=== PATIENT | female | born 1945 | race Caucasian/White ===

== ENCOUNTER 2022-06-14 09:07 | Inpatient (IN) | payer MEDICARE, OTHER, SELFPAY ==
[2022-06-14] VITALS (18 sets, daily range): BP systolic 119–186; BP diastolic 85–107; PULSE 107–141; RESP 16–36; TEMP 36.8–37.2; O2SAT 88–100; BMI 19.1
--- NOTE | 2022-06-14 09:18 | W.ED.SOB ---
HPI - SOB/Dyspnea General: Chief Complaint: Shortness of Breath/Dyspnea Stated Complaint: covid and flu + since sunday, SOB Time Seen by Provider: 06/14/22 09:08 History of Present Illness: HPI Narrative: Ms. Parr is a 77-year-old lady with history of COPD/tobaccoism presenting to the emergency department due to respiratory distress. She reports onset of symptoms approximately 6 days ago with generalized malaise and increasing shortness of breath. This progressed over the weekend and became significant. She was diagnosed in [place] with COVID and flu. Sent home with steroids as well as a single injection of unknown medication. Despite this symptoms have persisted. Intensity is severe. Breathless at rest. No other specific changes in health, exacerbating, or alleviating factors identified. Onset (ago): day(s) Context: recent illness Timing: progressively worsening Severity: severe Exacerbating factors: exertion, movement and coughing Relieving factors: nothing Known history of: COPD Associated symptoms: Reports chest congestion and cough Review of Systems General: Reports: 10 or more systems reviewed and unremarkable except in HPI and below Resp: Reports: chest congestion PFSH ED PFSH: Medical History (Updated 06/14/22 @ 12:24 by Orlando Valle MD) COPD (chronic obstructive pulmonary disease) Sjogrens syndrome Surgical History (Updated 06/14/22 @ 12:14 by Orlando Valle MD) History of tubal ligation No significant past surgical history Social History (Updated 06/14/22 @ 12:14 by Orlando Valle MD) Smoking and tobacco status: current some day smoker Alcohol intake: never Physical Exam Const: COMMON NORMALS: alert GENERAL APPEARANCE: cooperative, well developed, in distress and ill appearing HENMT: COMMON NORMALS: normocephalic and atraumatic HEAD & SCALP: normocephalic and atraumatic THROAT: posterior oropharynx normal Eye: COMMON NORMALS: conjunctivae normal CONJUNCTIVA: Yes conjunctivae normal SCLERA: sclerae normal Neck/C-Spine: COMMON NORMALS: supple GENERAL: Yes trachea midline Resp: EFFORT & INSPECTION: Yes tachypneic and Yes respiratory distress AUSCULTATION: diminished lung sounds Cardio: COMMON NORMALS: regular rhythm RATE: tachycardic RHYTHM: regular rhythm GI: COMMON NORMALS: Soft to palpation PALPATION: Yes Soft to palpation and No Tenderness to palpation present (GI) Extremity: GENERAL: Yes normal exam except as noted and No edema Neuro: COMMON NORMALS: moves all extremities SENSORIUM/ORIENTATION: Yes alert and No Orientation impaired Psych: COMMON NORMALS: mental status grossly normal and Normal thought process present THOUGHT PROCESS: Normal thought process present Course Vital Signs: Vital signs: Vital Signs Temperature 98.1 F 06/21/22 13:07 Pulse Rate 103 H 06/21/22 13:07 Respiratory Rate 29 H 06/21/22 13:07 Blood Pressure 124/57 06/21/22 13:07 Pulse Oximetry 89 L 06/21/22 13:07 Oxygen Delivery Me thod 06/21/22 11:58 Oxygen Flow Rate 1 06/20/22 05:21 Fraction of Inspir ed Oxygen 30 06/19/22 12:00 MDM - SOB/Dyspnea Medical Decision Making 77-year-old lady presenting with respiratory distress in the context of COVID and flu. Exam as above. RT treatment ordered. EKG notable for sinus tachycardia with nonspecific ST segment abnormalities, no STEMI. Labs with no leukocytosis, normal hemoglobin. ABG is compensated on the supplemental oxygen. No significant electrolyte derangement. Mild transaminitis which is likely secondary to viral syndrome. BNP is somewhat elevated. Procalcitonin is also elevated.' Chest x-ray with mild chronic changes. Given severity of symptoms and no clear etiology identified on chest x-ray feel that advanced imaging is appropriate. CTA negative for PE however patient has multiple bilateral opacities concerning for pneumonia. There is also mild cardiomegaly and small pericardial effusion. Patient treated in ED with steroids, albuterol, fluids. Antibiotics also ordered by hospitalist upon results of procalcitonin. Most likely etiology of patient's symptoms is pneumonia including combination of viral and bacterial with acute hypoxic respiratory failure and respiratory distress. The results of ED evaluation were discussed with the patient including plan for admission due to requirement for level of care not available if discharged to prevent significant worsening/deterioration. Patient agreeable with plan. Discussed with hospitalist service who was agreeable to admit patient. Medical Records I reviewed the patient's medical records. Lab Data I reviewed the patient's lab results. 06/20/22 02:22 06/20/22 02:22 Labs/Radiology: Radiology Impressions Chest CTA 06/14/22 10:10 IMPRESSION: 1. No pulmonary embolism. 2. Extensive bilateral scattered pulmonary opacifications. Predominantly in a tree-in-bud airspace distribution with more focal opacification at the RIGHT apex. Favor viral pneumonitis. 3. Enlarged mediastinal and hilar lymph nodes, likely reactive. 4. Mild cardiomegaly with small circumferential pericardial effusion. Chest X-Ray 06/18/22 12:33 IMPRESSION: Findings as stated above are consistent with COPD. Laboratory Results WBC 9.5 10^3/uL (4.0-10.0) 06/14/22 09:50 RBC 4.50 10^6/uL (4.1-5.3) 06/14/22 09:50 Hgb 11.6 g/dL (11.5-15.3) 06/14/22 09:50 Hct 36.8 % (37.0-47.0) L 06/14/22 09:50 MCV 81.8 fl (81-99) 06/14/22 09:50 MCH 25.8 pg (28.0-34.0) L 06/14/22 09:50 MCHC 31.5 g/dL (30.0-36.0) 06/14/22 09:50 RDW 15.6 % (12.1-15.1) H 06/14/22 09:50 Plt Count 226 10^3/cmm (130-400) 06/14/22 09:50 MPV 12.3 fL (7.4-10.4) H 06/14/22 09:50 Lymph % (Auto) Not Reportable 06/14/22 09:50 [place] % (Auto) Not Reportable 06/14/22 09:50 Lymph # (Auto) Not Reportable 06/14/22 09:50 [place] # (Auto) Not Reportable 06/14/22 09:50 Total Counted 100 (0-100) 06/14/22 09:50 Atypical Lymphs % 10.0 % (0-5) H 06/14/22 09:50 Absolute Neutrophils 7.2 10^3/cmm (1.4-6.5) H 06/14/22 09:50 Segmented Neutrophils 61 % 06/14/22 09:50 Abs Segm Neuts (Man) 5.8 10/cmm (1.6-7.1) 06/14/22 09:50 Band Neutrophils 15.0 % 06/14/22 09:50 Abs Band Neuts (Man) 1.4 10^3/cmm (0.0-1.2) H 06/14/22 09:50 Absolute Lymphocytes 2.1 10^3/cmm (1.2-3.4) 06/14/22 09:50 Lymphocytes (Manual) 12 % 06/14/22 09:50 Monocytes (Manual) 2.0 % 06/14/22 09:50 Absolute Monocytes 0.2 10^3/cmm (0.1-0.6) 06/14/22 09:50 Eosinophils (Manual) 0 % 06/14/22 09:50 Absolute Eosinophils 0.0 10^3/cmm (0.0-0.7) 06/14/22 09:50 Basophils (Manual) 0.0 % 06/14/22 09:50 Absolute Basophils 0.0 10^3/cmm (0.0-0.2) 06/14/22 09:50 Pathologist Review Yes 06/14/22 09:50 Platelet Estimate Normal (Normal) 06/14/22 09:50 Polychromasia Trace 06/14/22 09:50 Hypochromasia Trace 06/14/22 09:50 Poikilocytosis Trace 06/14/22 09:50 Anisocytosis Trace 06/14/22 09:50 Microcytosis Trace 06/14/22 09:50 Macrocytosis Trace 06/14/22 09:50 Spherocytes Trace 06/14/22 09:50 Specimen Type Arterial 06/14/22 09:28 Sample Site Radial, left 06/14/22 09:28 ABG pH 7.43 (7.35-7.45) 06/14/22 09:28 ABG pCO2 42.7 mmHg (35-45) 06/14/22 09:28 ABG pO2 82.0 mmHg (80.0-100.0) 06/14/22 09:28 ABG HCO3 28.4 mmol/L (22-26) H 06/14/22 09:28 ABG Base Excess 3.6 mmol/L (-2.0-2.0) H 06/14/22 09:28 Jose Miguel Test Pos 06/14/22 09:28 Hematocrit 37.1 % (37-47) 06/14/22 09:28 Hgb O2 Saturation 95.6 % (95-100) 06/14/22 09:28 Carboxyhemoglobin 1.1 %THgb (0.4-20.1) 06/14/22 09:28 Methemoglobin 0.7 % (0.4-1.5) 06/14/22 09:28 Total Hemoglobin 12.1 g/dL (12-16) 06/14/22 09:28 O2 Delivery Device Nc 06/14/22 09:28 O2 Liters/Min 3.0 % 06/14/22 09:28 Furniture Painter ID [place] 06/14/22 09:28 Sodium 139 mmol/L (136-145) 06/14/22 09:50 Potassium 4.1 mmol/L (3.5-5.1) 06/14/22 09:50 Chloride 103 mmol/L (98-107) 06/14/22 09:50 Carbon Dioxide 25 mmol/L (22-29) 06/14/22 09:50 Anion Gap 15.1 (5-19) 06/14/22 09:50 BUN 14 mg/dL (8-23) 06/14/22 09:50 Creatinine 0.5 mg/dL (0.5-0.9) 06/14/22 09:50 GFR Calculation Not Reportable 06/14/22 09:50 Glucose 142 mg/dL (65-115) H 06/14/22 09:50 Calculated Osmolality 291 mOsm/kg (285-295) 06/14/22 09:50 Lactic Acid 1.8 mmol/L (0.5-2.2) 06/14/22 09:50 Calcium 8.7 mg/dL (8.5-10.5) 06/14/22 09:50 Total Bilirubin 0.4 mg/dL (0.15-1.2) 06/14/22 09:50 AST 48 U/L (0-32) H 06/14/22 09:50 ALT 70 U/L (0-33) H 06/14/22 09:50 Alkaline Phosphatase 240 U/L (35-105) H 06/14/22 09:50 Troponin T Baseline 18 ng/L (0-10) H 06/14/22 09:50 Troponin T 120 Minute 19.94 ng/L (0-10) H 06/14/22 11:55 Delta Troponin T 1.94 ABS# (0-10) 06/14/22 11:55 C-Reactive Protein 150.9 mg/L (0.0-4.9) H 06/14/22 09:50 Total Protein 6.6 g/dL (6.6-8.7) 06/14/22 09:50 Albumin 3.4 g/dL (3.5-5.2) L 06/14/22 09:50 Globulin 3.2 g/dL (1.3-4.6) 06/14/22 09:50 Procalcitonin 7.79 ng/mL (0-0.5) H 06/14/22 09:50 Hepatitis A IgM Ab Non-reactive (Nonreactive) 06/14/22 09:50 Hep Bs Antigen Non-reactive (Nonreactive) 06/14/22 09:50 Hep B Core IgM Ab Non-reactive (Nonreactive) 06/14/22 09:50 Hepatitis C Antibody Non-reactive (Nonreactive) 06/14/22 09:50 SARS-CoV-2 Ag (Rapid) negative (Negative) 06/14/22 10:53 Discharge Plan Discharge Patient Disposition: Admitted As Inpatient Admit Provider: Orlando Valle Clinical Impression: Acute exacerbation of chronic obstructive airways disease, Flu, COVID, Acute respiratory failure with hypoxia, Acute respiratory distress Condition: Stable Discharge Diet: Usual diet Discharge Activity: Resume usual activity Coding Level of Care Code ED Cartridge Loader for Eric Fwtrung Exam Comprehensive
--- NOTE | 2022-06-14 09:30 | XR_ITS ---
WS: [id number] Exam: XR chest 1V portable [id number] Date/Time of Exam: 06/14/2022 9:30 AM Reason For Exam: covid, flu, sob/tachycardia Comparison 08/10/2015. The lungs are hyperinflated. No acute infiltrates are seen. There are chronic interstitial changes. C ardiomediastinal silhouette is unremarkable for technique. No pleural effusions. Bony structures are intact. XR/XR chest 1V portable [id number] IMPRESSION: 1. Pulmonary hyperinflation which may indicate COPD. 2. Chronic interstitial changes and calcified granulomas in both lungs. No acut e process.
[2022-06-14 09:39] LABS: ABG PCO2 42.7 mmHg (35-45); ABG PH Result 7.43 (7.35-7.45); Arterial Blood Gas Hematocrit 37.1 % (37-47); Base Excess ABG 3.6 mmol/L (-2.0-2.0); Blood Gas Allen Test Pos; Blood Gas Operator Identificat WALCI; Blood Gas Sample Site Radial, left; Blood Gas Sample Type Arterial; Carboxyhemoglobin 1.1 %THgb (0.4-20.1); HCO3 ABG 28.4 mmol/L (22-26); HGB O2 Sat 95.6 % (95-100); Methemoglobin 0.7 % (0.4-1.5); Oxygen Device NC; Total Hemoglobin 12.1 g/dL (12-16)
--- NOTE | 2022-06-14 09:43 | ECG_ITS ---
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 Measurements Intervals [place] Rate: 108 P: 89 FL: 139 QRS: 64 QRSD: 94 T: 79 QT: 326 QTc: 437 Interpretive Statements SINUS TACHYCARDIA POSSIBLE LEFT ATRIAL ENLARGEMENT [-0.1mV P-WAVE IN V1/V2] POSSIBLE RIGHT VENTRICULAR CONDUCTION DELAY [RSR (QR) IN V1/V2] LEFT VENTRICULAR HYPERTROPHY AND ST-T CHANGE Compared to ECG 09/30/2015 18:40:33 Left ventricular hypertrophy now present ST (T wave) deviation now present T-wave abnormality no longer present Possible ischemia no longer present Electronically Signed On 06-14-2022 10:13:23 RESIDENT PHYSICIAN IN RADIOLOGY by Tonia Newsome M.D. [id number]
[2022-06-14] MEDS: albuterol 2.5 mg/3 mL Neb INHALATION ×2 (09:47)
[2022-06-14] MEDS: ipratropium-albuterol 3 mL Neb INHALATION ×4 (09:47→23:32)
[2022-06-14] MEDS: sodium chloride 0.9% 500 ML 999 ML IV (09:53)
[2022-06-14 10:03] LABS: Hematocrit 36.8 % (37.0-47.0); Hemoglobin 11.6 g/dL (11.5-15.3); Mean Corpuscular HGB Conc 31.5 g/dL (30.0-36.0); Mean Corpuscular Hemoglobin 25.8 pg (28.0-34.0); Mean Corpuscular Volume 81.8 fl (81-99); Mean Platelet Volume 12.3 fL (7.4-10.4); Platelet Count 226 10^3/cmm (130-400); Red Cell Distribution Width 15.6 % (12.1-15.1); White Blood Count 9.5 10^3/uL (4.0-10.0)
--- NOTE | 2022-06-14 10:10 | CT_ITS ---
WS: [id number] CT CHEST ANGIOGRAPHY WITH REFORMATS HISTORY: covid/flu, tachycardia, sob TECHNIQUE: Contiguous axial images are obtained through the chest during arterial injection of intrav enous contrast. Images are reconstructed to evaluate the pulmonary arteries. MIP imaging also reviewe d. All CT scans at [facility] use at least one of these dose optimization techniques: automat ed exposure control; mA and/or kV adjustment per patient size (includes targeted exams where dose is matched to clinical indication); or iterative reconstruction. CONTRAST: Omnipaque 350; 64 mL IV. DLP: 169.72 mGy.cm COMPARISON: 09/29/2015 Very good opacification of the pulmonary arteries. No filling defects or pulmonary emboli identified. Normal size pulmonary artery. Mild atherosclerosis thoracic aorta. No aneurysm. No dissection is thalia dent. Hyperexpanded lungs. There are numerous bilateral scattered pulmonary opacifications. Majority of the opacifications are tree-in-bud distribution. More focal irregular opacification at the RIGHT apex. Mildly enlarged heart with a small pericardial effusion measuring up to 10 mm. Mediastinal and hilar enlarged lymph nodes, probably reactive adenopathy. Inferior RIGHT paratracheal lymph node measures 11 mm. Bilateral hilar lymph nodes measuring up to 16 mm. Small hiatal hernia. Suprarenal aorta with mild atherosclerotic changes. CT/CT angio chest PE protcl [id number] IMPRESSION: 1. No pulmonary embolism. 2. Extensive bilateral scattered pulmonary opacifications. Predominantly in a tree-in-bud airspace distribution with more focal opacification at the RIGHT ap ex. Favor viral pneumonitis. 3. Enlarged mediastinal and hilar lymph nodes, likely reactive. 4. Mild cardiomegaly with small circumferential pericardial effusion.
[2022-06-14 10:25] LABS: Lactic Sepsis W/Reflex 1.8 mmol/L (0.5-2.2)
[2022-06-14 10:31] LABS: Troponin(5th) Baseline 18 ng/L (0-10)
[2022-06-14 10:32] LABS: Slide Review Slide Review Perform
[2022-06-14 10:33] LABS: Absolute Neutrophil 7.2 10^3/cmm (1.4-6.5); Absolute Segmented Neutrophil 5.8 10/cmm (1.6-7.1); Band Neutrophils Absolute 1.4 10^3/cmm (0.0-1.2); Eosinophils 0 %; Lymphocytes 12 %; Lymphocytes Absolute 2.1 10^3/cmm (1.2-3.4); Monocytes Absolute 0.2 10^3/cmm (0.1-0.6); Platelet Estimate Normal (Normal); Segmented Neutrophils 61 %; Total Cells Counted 100 (0-100)
[2022-06-14 10:34] LABS: Alanine Aminotransferase 70 U/L (0-33); Albumin Level 3.4 g/dL (3.5-5.2); Alkaline Phosphatase 240 U/L (35-105); Blood Urea Nitrogen 14 mg/dL (8-23); Calcium 8.7 mg/dL (8.5-10.5); Carbon Dioxide 25 mmol/L (22-29); Chloride 103 mmol/L (98-107); Globulin 3.2 g/dL (1.3-4.6); Glucose 142 mg/dL (65-115); Osmolality Calculated 291 mOsm/kg (285-295); Sodium 139 mmol/L (136-145); Total Bilirubin 0.4 mg/dL (0.15-1.2); Total Protein 6.6 g/dL (6.6-8.7)
[2022-06-14 10:36] LABS: Anion Gap 15.1 (5-19); Anisocytosis Trace; Aspartate Amino Transferase 48 U/L (0-32); Hypochromasia Trace; Macrocytosis Trace; Microcytosis Trace; Pathology Refferal Yes; Poikilocytosis Trace; Polychromasia Trace; Potassium 4.1 mmol/L (3.5-5.1); Spherocytes Trace
--- NOTE | 2022-06-14 10:44 | PC.NURSE ---
PT PLACED ON CONTINUOUS NIBP, SPO2, AND CM
[2022-06-14] MEDS: iohexol 350 mg/mL 500 mL Btl (per mL) IV (10:47)
[2022-06-14] MEDS: dexamethasone 10 mg/mL INJ 6 MG IVP (11:26)
[2022-06-14 11:34] LABS: C Reactive Protein 150.9 mg/L (0.0-4.9)
--- NOTE | 2022-06-14 11:34 | ECG_ITS ---
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 Measurements Intervals [place] Rate: 134 P: 86 [place]: 141 QRS: 62 QRSD: 94 T: 81 QT: 308 QTc: 461 Interpretive Statements SINUS TACHYCARDIA POSSIBLE RIGHT VENTRICULAR CONDUCTION DELAY [RSR (QR) IN V1/V2] LEFT VENTRICULAR HYPERTROPHY AND ST-T CHANGE [VOLTAGE CRITERIA PLUS ST/T ABNORMALITY] Compared to ECG 06/14/2022 09:43:43 No significant changes Electronically Signed On 06-15-2022 9:23:54 DEFECT CUTTER by Tonia Newsome M.D. [id number]
[2022-06-14 11:36] LABS: SARS Covid-2 Antigen negative (Negative)
[2022-06-14 11:42] LABS: Procalcitonin 7.79 ng/mL (0-0.5)
--- NOTE | 2022-06-14 12:06 | PM.HP ---
Providers/Chief Complaint Admitting Physician: Orlando Valle MD Chief Complaint: covid and flu + since sunday, SOB History of Present Illness Jannet Parr is a 77 year old female presenting to the emergency department with worsening shortness of breath. She was diagnosed with flu and COVID a by rapid antigen testing on June 12 to [facility] and [place]. She reports she is felt hot at times with no documented fever. She has been coughing up yellowish substance to grayish substance. She has become more short of breath. This morning she came to the emergency department and is requiring oxygen. She states she had some nausea and vomiting. No diarrhea. No blood in her sputum. She denies any chest discomfort. Review of Systems General: Reports: 10 or more systems reviewed and unremarkable except in HPI and below Const: Reports: chills, fatigue and malaise; Denies: fever(s) Eyes: Denies: change in vision ENMT: Denies: throat pain Card: Denies: chest pain Resp: Reports: dyspnea and productive cough GI: Reports: nausea; Denies: abdominal pain, hematochezia or melena : Denies: flank pain Musc: Denies: neck pain Skin/Breast: Denies: rash Neuro: Denies: headache(s) Psych: Denies: anxiety or depression Endo: Denies: polyuria Goldy/Lymph: Denies: easy bruising All/Imm: Denies: urticaria Medications/Allergies Home Medications Medication Instructions Recorded Confirmed Last Taken Type albuterol sulfate 90 mcg/actuation 2 puff inhalation Q4H PRN 06/14/22 06/14/22 06/14/22 History aerosol inhaler (Ventolin HFA) Shortness Of Breath Or Wheezing nirmatrelvir 300 mg (150 mg See Rx Instructions .Route .COMPLEX 06/14/22 06/14/22 06/13/22 History x2)-ritonavir 100 mg tablet,dose pack(EUA) (Paxlovid) pantoprazole 40 mg tablet,delayed 40 mg PO DAILY PRN Acid Reflux 06/14/22 06/14/22 Unknown History release prednisone 10 mg tablet See Rx Instructions .Route .COMPLEX 06/14/22 06/14/22 06/13/22 History tiotropium bromide 18 mcg capsule 18 mcg inhalation DAILY 06/14/22 06/14/22 06/14/22 History with inhalation device (Spiriva with HandiHaler) Allergies Allergy/AdvReac Type Severity Reaction Status Date / Time No Known Allergies Allergy Verified 06/14/22 10:36 PFSH Acute PFSH: Medical History (Updated 06/14/22 @ 12:24 by Orlando Valle MD) COPD (chronic obstructive pulmonary disease) Sjogrens syndrome Surgical History (Updated 06/14/22 @ 12:14 by Orlando Valle MD) History of tubal ligation No significant past surgical history Social History (Updated 06/14/22 @ 12:14 by Orlando Valle MD) Smoking and tobacco status: current some day smoker Alcohol intake: never Other PFSH information: Supplemental PFSH Information: Family history of COPD, in non-smoker Vitals/I&O/Wt Last Vital Signs Temp 98.3 F 06/14/22 09:15 Pulse 134 H 06/14/22 11:20 Resp 29 H 06/14/22 11:20 BP 119/94 06/14/22 11:20 Pulse Ox 96 06/14/22 11:20 O2 Del Method 06/14/22 11:20 O2 Flow Rate 2 06/14/22 11:20 06/13/22 06/14/22 06/14/22 22:59 06:59 14:59 Intake Total 500 / 500 Balance 500 / 500 Weight last 48 hrs Weight 49.895 kg Physical Exam Narrative: General exam is a white female in moderate respiratory distress on 2 L of oxygen with tachypnea. HEENT: Atraumatic and normocephalic. Pupils equally round. Oropharynx clear. Neck is supple no lymphadenopathy or thyromegaly Cardiovascular tachycardic, no murmur Lungs few dry crackles bilaterally Abdomen is soft positive bowel sounds. No obvious organomegaly exam was deferred Extremities no cyanosis clubbing or edema, cap refill brisk Skin no rash Neuro no obvious focal deficits. Data 06/14/22 09:50 06/14/22 09:50 Other Labs: I have confirmed she had a rapid COVID and influenza a that was positive at [facility] on June 12 ABG demonstrates pH 7.43, PCO2 42, PO2 of 82 on 3 L LFTs are elevated with an AST of 48, ALT of 70, alk phos of 240 Troponin elevated at 18 and repeat pending Lactic acid normal Calcium 8.7 Bilirubin normal CRP 151 Procalcitonin 7.79 Rapid COVID-negative here at the hospital Blood cultures were performed EKG demonstrates sinus tachycardia, normal axis, nonspecific ST-T wave changes Chest x-ray showed COPD, interstitial changes CTA demonstrates no pulmonary embolism, scattered pulmonary opacifications with tree-in-bud more focal in the right apex, mild cardiomegaly and small pericardial effusion Micro: Microbiology 06/14/22 09:55 Blood Culture - Preliminary Blood SPECIMEN COLLECTED 06/14/22 09:50 Blood Culture - Preliminary Blood SPECIMEN COLLECTED A&P Assessment and plan (1) Pneumonia due to COVID-19 virus: Patient tested positive for COVID on Sunday. Symptoms perhaps since late last week but also had COVID booster of last week. Continue dexamethasone 6 mg IV every 24 hours Initiate remdesivir Pulmonary toilet Incentive spirometry Try to promote prone positioning Wean oxygen as tolerated Try to avoid overhydration Cannot rule out superimposed bacterial infection considering elevated procalcitonin. Initiate Rocephin and Zithromax. Sputum culture and MRSA PCR (2) Influenza A: Initiate Tamiflu See other notations (3) Acute exacerbation of chronic obstructive airways disease: Continue dexamethasone DuoNeb every 4 hours Budesonide twice daily (4) Acute respiratory failure with hypoxia: See notations above Wean oxygen as tolerated Moderate respiratory distress is present currently (5) Transaminitis: Check hepatitis panel Likely secondary to viral infection Recheck tomorrow Plan Some atypical lymphs seen on CBC. Recheck tomorrow. Other medical problems as outlined in past medical history Full code Lovenox for DVT prophylaxis Attestations Medical Necessity Statement*: Will need greater than 2 midnight stay for evaluation and treatment of influenza A and COVID 19 pneumonia. Coding Level of Care Code Acute Travel Assistant for [facility] F[facility] Diagnoses Pneumonia due to COVID-19 virus U07.1; J12.82 Influenza A J10.1 Acute exacerbation of chronic obstructive airways disease J44.1 Acute respiratory failure with hypoxia J96.01 Transaminitis R74.01
[2022-06-14 12:23] LABS: Troponin 5 2HR 19.94 ng/L (0-10)
[2022-06-14 12:25] LABS: Troponin 5 2HR Delta 1.94 ABS# (0-10)
[2022-06-14] MEDS: cefTRIAXone 1,000 MG in sodium chloride 0.9% (plus) 50 ML 100 MG IV (12:38)
[2022-06-14] MEDS: azithromycin 500 MG in sodium chloride 0.9% 250 ML 250 MG IV (13:39)
[2022-06-14] MEDS: enoxaparin 40 mg/0.4 mL Syringe SUBCUT (13:40)
[2022-06-14 13:41] LABS: Hepatitis A Antibody IgM Non-Reactive (Nonreactive); Hepatitis B Core IgM Non-Reactive (Nonreactive); Hepatitis B Surface Antigen Non-Reactive (Nonreactive); Hepatitis C Virus Antibody Non-Reactive (Nonreactive)
[2022-06-14] MEDS: remdesivir 200 MG in sodium chloride 0.9% (100 ml) 60 ML 100 MG IV (14:59)
[2022-06-14 15:02] LABS: NT Pro B Type Natriuretic Pept 5031 pg/mL (0-450)
[2022-06-14] MEDS: LORazepam 2 mg/mL INJ 1 mL 0.5 MG IVP ×3 (15:14→23:43)
[2022-06-14] MEDS: FUROsemide 10 mg/mL SDV 4mL 40 MG IVP (15:35)
[2022-06-14 16:29] LABS: Troponin 5 6HR 22.55 ng/L (0-10)
[2022-06-14 16:31] LABS: Troponin 5 6HR Delta 4.55 ng/L (0-12)
[2022-06-14 17:00] LABS: Glucose Point of Care 161 mg/dL (70-110)
[2022-06-14] MEDS: oseltamivir phosphate 75 mg Capsule PO (17:59)
[2022-06-14] MEDS: budesonide 0.5 mg/2 mL Neb INHALATION (19:51)
[2022-06-14 20:55] LABS: Glucose Point of Care 144 mg/dL (70-110)
[2022-06-15] VITALS (19 sets, daily range): BP systolic 126–186; BP diastolic 78–103; PULSE 99–118; RESP 18–41; TEMP 36.6–37.2; O2SAT 93–96
[2022-06-15] MEDS: ipratropium-albuterol 3 mL Neb INHALATION ×6 (04:34→22:44)
[2022-06-15] MEDS: LORazepam 2 mg/mL INJ 1 mL 0.5 MG IVP ×3 (04:56→20:58)
[2022-06-15 05:43] LABS: Basophils # 0.1 10^3/uL (0.0-0.1); Basophils % 0.8 %; Hematocrit 37.6 % (37.0-47.0); Hemoglobin 11.7 g/dL (11.5-15.3); Lymphocytes # 0.6 10^3/uL (0.8-4.8); Lymphocytes % 9.3 %; Mean Corpuscular HGB Conc 31.1 g/dL (30.0-36.0); Mean Corpuscular Hemoglobin 25.8 pg (28.0-34.0); Mean Corpuscular Volume 82.8 fl (81-99); Mean Platelet Volume 12.1 fL (7.4-10.4); Monocytes # 0.3 10^3/uL (0.2-0.9); Monocytes % 5.2 %; Neutrophils # 5.23 10^3/uL (1.8-7.7); Neutrophils % 82.3 %; Nucleated Red Blood Cells % 0 %; Platelet Count 248 10^3/cmm (130-400); Red Blood Count 4.54 10^6/uL (4.1-5.3); Red Cell Distribution Width 15.7 % (12.1-15.1); White Blood Count 6.4 10^3/uL (4.0-10.0)
[2022-06-15 06:06] LABS: C Reactive Protein 166.3 mg/L (0.0-4.9)
[2022-06-15 06:09] LABS: Alanine Aminotransferase 55 U/L (0-33); Alkaline Phosphatase 217 U/L (35-105); Anion Gap 17.7 (5-19); Aspartate Amino Transferase 25 U/L (0-32); Carbon Dioxide 28 mmol/L (22-29); Chloride 97 mmol/L (98-107); Glucose 135 mg/dL (65-115); Potassium 3.7 mmol/L (3.5-5.1); Sodium 139 mmol/L (136-145); Total Bilirubin 0.4 mg/dL (0.15-1.2)
[2022-06-15 06:42] LABS: Blood Urea Nitrogen 20 mg/dL (8-23); Calcium 8.8 mg/dL (8.5-10.5); Osmolality Calculated 293 mOsm/kg (285-295)
--- NOTE | 2022-06-15 08:13 | PM.PN ---
Subjective Subjective: Reports she slept a little bit last night. Nurses had to give her Ativan for anxiety on occasion. Coughing quite a bit, trying to mobilize some sputum. No chest pain. Medications: Reviewed: Yes Vitals/I&O/Wt Last Vital Signs Temp 99.0 F 06/14/22 23:42 Pulse 114 H 06/15/22 05:11 Resp 30 H 06/15/22 04:37 BP 152/86 06/15/22 02:57 Pulse Ox 96 06/15/22 04:37 O2 Del Method 06/15/22 04:37 O2 Flow Rate 40 06/15/22 04:37 FiO2 35 06/15/22 04:37 06/14/22 06/15/22 06/15/22 22:59 06:59 14:59 Intake Total 750 / 1300 Output Total 850 / 850 125 / 975 Balance -100 / 450 -125 / 325 Weight last 48 hrs Weight 49.016 kg Weight 49.895 kg Physical Exam Narrative: General exam is a white female in moderate respiratory distress currently on 35% FiO2, 40 L high flow. Heart rate is improved around 110. Blood pressure still high. Neck is supple no lymphadenopathy or thyromegaly Cardiovascular tachycardic, no murmur Lungs few dry crackles bilaterally Abdomen is soft positive bowel sounds. No obvious organomegaly exam Phillips noted Extremities no cyanosis clubbing or edema, cap refill brisk Skin no rash Data 06/15/22 05:35 06/15/22 05:35 Micro: Microbiology 06/14/22 09:55 Blood Culture - Preliminary Blood SPECIMEN COLLECTED 06/14/22 09:50 Blood Culture - Preliminary Blood SPECIMEN COLLECTED A&P Assessment and plan (1) Pneumonia due to COVID-19 virus: Patient tested positive for COVID on Sunday. Symptoms perhaps since late last week but also had COVID booster of last week. Continue dexamethasone 6 mg IV every 24 hours Continue remdesivir Pulmonary toilet Incentive spirometry Try to promote prone positioning Wean oxygen as tolerated Try to avoid overhydration Cannot rule out superimposed bacterial infection considering elevated procalcitonin. Continue Rocephin and Zithromax. Sputum culture and MRSA PCR pending CTA was negative for pulmonary embolism Presentation consistent with acute hypoxic respiratory failure Had Mucinex (2) Influenza A: Continue Tamiflu See other notations (3) Acute exacerbation of chronic obstructive airways disease: Continue dexamethasone DuoNeb every 4 hours Budesonide twice daily (4) Acute respiratory failure with hypoxia: See notations above Wean oxygen as tolerated Moderate respiratory distress is present currently (5) Transaminitis: Hepatitis panel negative Likely secondary to viral infection Improved Plan Some atypical lymphs seen on CBC. Appears to be resolved Persistent hypertension. Add Norvasc Elevated BNP. Does not appear fluid overloaded. Lasix 40 mg IV given 06/14. Echocardiogram ordered and pending. Other medical problems as outlined in past medical history Full code Lovenox for DVT prophylaxis Attestations Medical Necessity Statement*: Needs continued hospitalization, for IV antibiotics and IV antivirals and this patient acutely ill with COPD exacerbation, influenza and COVID. High risk for decompensation. Coding Level of Care Code Acute Commercial Housekeeper for [facility] Diagnoses Pneumonia due to COVID-19 virus U07.1; J12.82 Influenza A J10.1 Acute exacerbation of chronic obstructive airways disease J44.1 Acute respiratory failure with hypoxia J96.01 Transaminitis R74.01
[2022-06-15] MEDS: oseltamivir phosphate 75 mg Capsule PO ×2 (08:28→18:07)
[2022-06-15] MEDS: amlodipine 5 mg Tablet PO (08:28)
[2022-06-15] MEDS: acetaminophen 325 mg Tablet 650 MG PO (08:28)
[2022-06-15] MEDS: guaiFENesin 600 mg Tablet PO ×2 (08:28→18:07)
[2022-06-15] MEDS: dexamethasone 10 mg/mL INJ 6 MG IVP (08:28)
[2022-06-15] MEDS: pantoprazole DR 40 mg Tablet PO (08:29)
[2022-06-15] MEDS: budesonide 0.5 mg/2 mL Neb INHALATION ×2 (08:41→22:44)
[2022-06-15] MEDS: azithromycin 500 MG in sodium chloride 0.9% 250 ML 250 MG IV (13:02)
[2022-06-15] MEDS: cefTRIAXone 1,000 MG in sodium chloride 0.9% (plus) 50 ML 100 MG IV (13:02)
[2022-06-15] MEDS: enoxaparin 40 mg/0.4 mL Syringe SUBCUT (13:54)
[2022-06-15] MEDS: remdesivir 100 MG in sodium chloride 0.9% (100 ml) 80 ML IV (18:59)
[2022-06-16] VITALS (15 sets, daily range): BP systolic 120–174; BP diastolic 82–97; PULSE 88–106; RESP 18–190; TEMP 36.6–36.7; O2SAT 90–100
--- NOTE | 2022-06-16 00:56 | ECG_ITS ---
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 Measurements Intervals [place] Rate: 99 P: 82 [place]: 134 QRS: 17 QRSD: 92 T: 69 QT: 349 QTc: 448 Interpretive Statements SINUS RHYTHM POSSIBLE RIGHT VENTRICULAR CONDUCTION DELAY [RSR (QR) IN V1/V2] VOLTAGE CRITERIA FOR LVH [MEETS CRITERIA IN ONE OF: R(aVL), S(V1), R(V5), R(V5/V6)+S(V1)] Compared to ECG 06/14/2022 11:34:08 Sinus tachycardia no longer present ST (T wave) deviation no longer present Electronically Signed On 06-16-2022 15:38:26 PARTICIPANT ADMINISTRATOR by Rula Roberts M.D. [id number]
[2022-06-16 02:42] LABS: Basophils % 0.6 %; Hematocrit 36.4 % (37.0-47.0); Hemoglobin 11.4 g/dL (11.5-15.3); Lymphocytes # 0.6 10^3/uL (0.8-4.8); Lymphocytes % 7.9 %; Mean Corpuscular HGB Conc 31.3 g/dL (30.0-36.0); Mean Corpuscular Hemoglobin 26.1 pg (28.0-34.0); Mean Corpuscular Volume 83.3 fl (81-99); Mean Platelet Volume 12.7 fL (7.4-10.4); Monocytes # 0.5 10^3/uL (0.2-0.9); Monocytes % 6.5 %; Neutrophils # 5.72 10^3/uL (1.8-7.7); Neutrophils % 79.2 %; Nucleated Red Blood Cells % 0 %; Platelet Count 259 10^3/cmm (130-400); Red Blood Count 4.37 10^6/uL (4.1-5.3); Red Cell Distribution Width 15.4 % (12.1-15.1); White Blood Count 7.2 10^3/uL (4.0-10.0)
[2022-06-16 03:08] LABS: Alanine Aminotransferase 43 U/L (0-33); Albumin Level 2.9 g/dL (3.5-5.2); Alkaline Phosphatase 208 U/L (35-105); Anion Gap 12.6 (5-19); Aspartate Amino Transferase 19 U/L (0-32); Blood Urea Nitrogen 31 mg/dL (8-23); Calcium 8.6 mg/dL (8.5-10.5); Carbon Dioxide 31 mmol/L (22-29); Chloride 101 mmol/L (98-107); Globulin 3.7 g/dL (1.3-4.6); Glucose 180 mg/dL (65-115); Osmolality Calculated 303 mOsm/kg (285-295); Potassium 3.6 mmol/L (3.5-5.1); Sodium 141 mmol/L (136-145); Total Bilirubin 0.2 mg/dL (0.15-1.2); Total Protein 6.6 g/dL (6.6-8.7)
[2022-06-16] MEDS: ipratropium-albuterol 3 mL Neb INHALATION ×5 (04:08→19:54)
[2022-06-16] MEDS: budesonide 0.5 mg/2 mL Neb INHALATION ×2 (07:50→19:54)
[2022-06-16] MEDS: dexamethasone 10 mg/mL INJ 6 MG IVP (09:39)
[2022-06-16] MEDS: amlodipine 5 mg Tablet PO (09:39)
[2022-06-16] MEDS: pantoprazole DR 40 mg Tablet PO (09:39)
[2022-06-16] MEDS: oseltamivir phosphate 75 mg Capsule PO ×2 (09:40→18:10)
[2022-06-16] MEDS: guaiFENesin 600 mg Tablet PO ×2 (09:40→18:10)
--- NOTE | 2022-06-16 09:59 | P.PN_ITS ---
Subjective Subjective: Jannet reports she does not have any pain when I walk in the room. She is still short of breath. She feels about the same. She states she gets lonely when nobody else is in the room. She is certainly more talkative today. I get a sense she may be feeling better. Medications: Reviewed: Yes Vitals/I&O/Wt Last Vital Signs Temp 97.9 F 06/16/22 04:00 Pulse 105 H 06/16/22 07:58 Resp 22 H 06/16/22 07:58 BP 174/97 06/16/22 07:58 Pulse Ox 90 06/16/22 07:58 O2 Del Method 06/16/22 07:56 O2 Flow Rate 40 06/16/22 07:56 FiO2 35 06/16/22 07:56 06/15/22 06/16/22 06/16/22 22:59 06:59 14:59 Intake Total 760 / 810 440 / 1250 Output Total 125 / 125 850 / 975 Balance 635 / 685 -410 / 275 Weight last 48 hrs Weight 49.016 kg Physical Exam Narrative: General exam is a white female in moderate respiratory distress cur rently on 35% FiO2, 40 L high flow. Heart rate currently around 100 Neck is supple no lymphadenopathy or thyromegaly Cardiovascular tachycardic, no murmur Lungs few dry crackles bilaterally Abdomen is soft positive bowel sounds. No obvious organomegaly exam Phillips noted Extremities no cyanosis clubbing or edema, cap refill brisk Skin no rash Data 06/16/22 01:56 06/16/22 01:56 Micro: Microbiology 06/14/22 13:45 Gram Stain - Final Sputum - Expectorated Sputum Sputum Culture - Preliminary 06/14/22 12:41 MRSA Culture - Final Nose 06/14/22 09:55 Blood Culture - Preliminary Blood NEGATIVE TO DATE 06/14/22 09:50 Blood Culture - Preliminary Blood NEGATIVE TO DATE A&P Assessment and plan (1) Pneumonia due to COVID-19 virus: Patient tested positive for COVID on June 11. Symptoms perhaps since late last week but also had COVID booster of last week. Continue dexamethasone 6 mg IV every 24 hours Continue remdesivir Pulmonary toilet Incentive spirometry Try to promote prone positioning Wean oxygen as tolerated Try to avoid overhydration Cannot rule out superimposed bacterial infection considering elevated procalcitonin. Continue Rocephin and Zithromax. Sputum culture pending. MRSA PCR negative CTA was negative for pulmonary embolism Presentation consistent with acute hypoxic respiratory failure Continue Mucinex Try to mobilize today and get up with physical therapy (2) Influenza A: Continue Tamiflu See other notations (3) Acute exacerbation of chronic obstructive airways disease: Continue dexamethasone DuoNeb every 4 hours Budesonide twice daily (4) Acute respiratory failure with hypoxia: See notations above Wean oxygen as tolerated Moderate respiratory distress is present currently (5) Transaminitis: Hepatitis panel negative Likely secondary to viral infection Improved Plan Some atypical lymphs seen on CBC. Appears to be resolved Persistent hypertension. Increase Norvasc Elevated BNP. Does not appear fluid overloaded. Lasix 40 mg IV given 06/14. Echocardiogram ordered and pending. Other medical problems as outlined in past medical history Full code Lovenox for DVT prophylaxis Attestations Medical Necessity Statement*: Needs continued hospitalization for IV antibiotics for possible pneumonia, as well as IV remdesivir and dexamethasone for COVID. Coding Level of Care Code Acute Horologist Apprentice for [facility] Diagnoses Pneumonia due to COVID-19 virus U07.1; J12.82 Influenza A J10.1 Acute exacerbation of chronic obstructive airways disease J44.1 Acute respiratory failure with hypoxia J96.01 Transaminitis R74.01
[2022-06-16] MEDS: cefTRIAXone 1,000 MG in sodium chloride 0.9% (plus) 50 ML 100 MG IV (13:51)
[2022-06-16] MEDS: enoxaparin 40 mg/0.4 mL Syringe SUBCUT (13:52)
[2022-06-16] MEDS: azithromycin 500 MG in sodium chloride 0.9% 250 ML 250 MG IV (13:52)
--- NOTE | 2022-06-16 15:11 | USCV_ITS ---
Jannet Parr Age: 77 Gender: F : 1945 Exam Date: 06/16/2022 01:12 Ordering Phys: Orlando Valle MD Technologist: ALONZO [place] [facility] [place]: elevated BNP. COVID isolation. FLU isolation. BP: 164 / 98 HR: 97 Rhythm: Sinus Technical Quality: Adequate MEASUREMENTS (Male / Female) Normal Values 2D ECHO LV Diastolic Diameter PLAX 2.9 cm 4.2 - 5.9 / 3.9 - 5.3 cm LV Systolic Diameter PLAX 1.9 cm IVS Diastolic Thickness 1.8 cm 0.6 - 1.0 / 0.6 - 0.9 cm IVS Systolic Thickness 2.1 cm LVPW Diastolic Thickness 1.6 cm 0.6 - 1.0 / 0.6 - 0.9 cm LVPW Systolic Thickness 1.2 cm LVOT Diameter 1.7 cm LV Ejection Fraction 2D Teich 66.5 % LV Ejection Fraction MOD 2C 58.5 % LV Ejection Fraction 2C AL 60.5 % LA Diameter 2.8 cm LA Width 4.3 cm LA Height 5.1 cm RA Width 2.8 cm RA Height 4.6 cm Aorta at Sinotubular Diameter 2.6 cm IVC Diameter 1.7 cm M-MODE Aortic Annulus Diameter 3.0 cm LA Ao Ratio MM 1.0 MV E Point Septal Separation 0.2 cm DOPPLER AV Peak Velocity 150.0 cm/s LVOT Peak Velocity 135.0 cm/s AV Area Cont Eq vti 2.0 cm squared AV Area Cont Eq pk 2.1 cm squared MV Area PHT 3.2 cm squared Mitral E to A Ratio 0.6 MV E' Velocity 42.0 cm/s Mitral E to MV E' Ratio 11.8 Mitral E to LV E' Lateral Ratio 11.1 Mitral E to LV E' Septal Ratio 12.8 TR Peak Velocity 273.0 cm/s TR Peak Gradient 29.8 mmHg TV Peak E Velocity 60.0 cm/s Right Atrial Pressure 5.0 mmHg Pulmonary Artery Systolic Pressu 34.8 mmHg PV Peak Velocity 106.0 cm/s RV Acceleration Time 0.1 s RV Ejection Time 0.4 s RV AcT/ET 0.3 FINDINGS Left Ventricle Normal left ventricular size and systolic function, EF 59 %. Moderate left ventricular hypertrophy. Grade I/IV diastolic dysfunction (abnormal relaxation filling pattern), normal to mildly elevated filling pressures. Right Ventricle The right ventricle is normal in size and function. Right Atrium The right atrium is normal in size. Left Atrium The left atrium is normal in size. Mitral Valve Moderate mitral annular calcification. Mild mitral valve regurgitation. Aortic Valve Thickened aortic valve. Mild aortic valve regurgitation. Tricuspid Valve [id number] tricuspid valve regurgitation. Estimated pulmonary artery peak systolic pressure 35 mmHg Pulmonic Valve Trace pulmonary valve regurgitation. Pericardium No pericardial effusion. Aorta Normal aortic annulus size. IVC The inferior vena cava appears normal. CONCLUSIONS Normal left ventricular size and systolic function, EF 59 %. Moderate left ventricular hypertrophy. Grade I/IV diastolic dysfunction (abnormal relaxation filling pattern), normal to mildly elevated filling pressures. Moderate mitral annular calcification. Mild mitral valve regurgitation. Thickened aortic valve. Mild aortic valve regurgitation. [id number] tricuspid valve regurgitation. Estimated pulmonary artery peak systolic pressure of 35 mmHg There is no pericardial effusion. There are no intracardiac masses. Dr Rula Roberts MD FACC (Electronically Signed) Final Date: 16 June 2022 12:47 S
[2022-06-16] MEDS: remdesivir 100 MG in sodium chloride 0.9% (100 ml) 80 ML IV (18:56)
[2022-06-16] MEDS: temazepam 15 mg Capsule PO (21:32)
[2022-06-16] MEDS: acetaminophen 325 mg Tablet 650 MG PO (23:54)
[2022-06-17] VITALS (13 sets, daily range): BP systolic 159–181; BP diastolic 68–98; PULSE 82–112; RESP 18–28; TEMP 36.5–36.9; O2SAT 94–96
[2022-06-17] MEDS: ipratropium-albuterol 3 mL Neb INHALATION ×7 (00:17→23:45)
[2022-06-17] MEDS: guaiFENesin 100 mg/5 mL UDC 10 mL 300 MG PO ×3 (02:13→21:06)
--- NOTE | 2022-06-17 05:18 | ECG_ITS ---
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 Measurements Intervals [place] Rate: 120 P: 83 MD: 127 QRS: 19 QRSD: 92 T: 64 QT: 320 QTc: 453 Interpretive Statements SINUS TACHYCARDIA POSSIBLE RIGHT VENTRICULAR CONDUCTION DELAY [RSR (QR) IN V1/V2] MODERATE VOLTAGE CRITERIA FOR LVH, CONSIDER NORMAL VARIANT ST DEPRESSION, CONSIDER SUBENDOCARDIAL INJURY [0.1+ mV ST DEPRESSION] Compared to ECG 06/16/2022 00:55:49 ST (T wave) deviation now present Sinus rhythm no longer present Electronically Signed On 06-17-2022 10:54:52 PARTS CLERK by Tonia Newsome M.D. [id number]
[2022-06-17 06:05] LABS: Basophils # 0.1 10^3/uL (0.0-0.1); Basophils % 0.6 %; Hematocrit 37.8 % (37.0-47.0); Hemoglobin 11.8 g/dL (11.5-15.3); Lymphocytes # 0.9 10^3/uL (0.8-4.8); Lymphocytes % 10.9 %; Mean Corpuscular HGB Conc 31.2 g/dL (30.0-36.0); Mean Corpuscular Volume 83.4 fl (81-99); Monocytes # 0.4 10^3/uL (0.2-0.9); Neutrophils # 6.27 10^3/uL (1.8-7.7); Nucleated Red Blood Cells % 0 %; Platelet Count 308 10^3/cmm (130-400); Red Blood Count 4.53 10^6/uL (4.1-5.3); Red Cell Distribution Width 15.4 % (12.1-15.1); White Blood Count 8.2 10^3/uL (4.0-10.0)
[2022-06-17] MEDS: acetaminophen 325 mg Tablet 650 MG PO ×2 (06:14→14:03)
[2022-06-17 06:22] LABS: Alanine Aminotransferase 32 U/L (0-33); Albumin Level 2.9 g/dL (3.5-5.2); Alkaline Phosphatase 169 U/L (35-105); Anion Gap 13.8 (5-19); Aspartate Amino Transferase 14 U/L (0-32); Blood Urea Nitrogen 27 mg/dL (8-23); C Reactive Protein 39.5 mg/L (0.0-4.9); Calcium 8.8 mg/dL (8.5-10.5); Carbon Dioxide 30 mmol/L (22-29); Chloride 102 mmol/L (98-107); Globulin 3.3 g/dL (1.3-4.6); Glucose 157 mg/dL (65-115); Osmolality Calculated 302 mOsm/kg (285-295); Potassium 3.8 mmol/L (3.5-5.1); Sodium 142 mmol/L (136-145); Total Bilirubin 0.3 mg/dL (0.15-1.2); Total Protein 6.2 g/dL (6.6-8.7)
[2022-06-17 07:00] LABS: Neutrophils % 83.5 %
[2022-06-17 07:01] LABS: Slide Review Slide Review Perform
[2022-06-17] MEDS: budesonide 0.5 mg/2 mL Neb INHALATION ×2 (07:59→19:43)
[2022-06-17] MEDS: guaiFENesin 600 mg Tablet PO ×2 (10:37→18:25)
[2022-06-17] MEDS: oseltamivir phosphate 75 mg Capsule PO ×2 (10:38→18:25)
[2022-06-17] MEDS: pantoprazole DR 40 mg Tablet PO (10:38)
[2022-06-17] MEDS: amlodipine 5 mg Tablet PO (10:39)
[2022-06-17] MEDS: dexamethasone 10 mg/mL INJ 6 MG IVP (10:39)
[2022-06-17] MEDS: LORazepam 2 mg/mL INJ 1 mL 0.5 MG IVP (10:59)
--- NOTE | 2022-06-17 11:44 | PC.SOCIAL ---
IMM update IMM updated with patient by phone, copy of page 2 provided. Patient verbalized understanding. copy in chart initialed, dated and timed.
[2022-06-17] MEDS: cefTRIAXone 1,000 MG in sodium chloride 0.9% (plus) 50 ML 100 MG IV (14:05)
[2022-06-17] MEDS: enoxaparin 40 mg/0.4 mL Syringe SUBCUT (14:07)
--- NOTE | 2022-06-17 17:12 | P.PN_ITS ---
Subjective Subjective: Patient was seen and examined this morning, currently she is saturating well on 30% FiO2 at 40 L/min, has been afebrile, she was complaining of some dry mouth, discomfort at the IV site, she wants to be in disentangle from all the wires so that she can freely. Documented urine output is around 90 0 cc. 2D echo was done: Results appreciated. Medications: Reviewed: Yes Medication Review Details: Generic Name Dose Route Start Last Admin Trade Name Freq PRN Reason Stop Dose Admin Acetaminophen 650 mg 06/14/22 12:26 06/17/22 14:03 Acetaminophen 32 5 Mg Tablet PO 650 mg Q6H PRN Administration Mild/Mod Pain Or Temp >/= 101 Albuterol/Ipratrop ium 3 ml 06/14/22 16:00 06/17/22 15:54 Ipratropium-Albu terol 3 Ml Neb INHALATION 3 ml Q4H.RESPIRATORY S CH Administration Amlodipine Besylat e 5 mg 06/17/22 09:00 06/17/22 10:39 Amlodipine 5 Mg Tablet PO 5 mg DAILY JOSIAS Administration Budesonide 0.5 mg 06/14/22 20:00 06/17/22 07:59 Budesonide 0.5 M g/2 Ml Neb INHALATION 0.5 mg BID.RESPIRATORY S CH Administration Dexamethasone 6 mg 06/15/22 09:00 06/17/22 10:39 Dexamethasone 10 Mg/Ml Inj IVP 6 mg Q24H JOSIAS Administration Enoxaparin Sodium 40 mg 06/14/22 14:00 06/17/22 14:07 Enoxaparin 40 Mg /0.4 Ml Syringe SUBCUT 40 mg Q24H JOSIAS Administration Guaifenesin 600 mg 06/15/22 09:00 06/17/22 10:37 Guaifenesin 600 Mg Tablet PO 600 mg BID JOSIAS Administration Guaifenesin 300 mg 06/17/22 00:27 06/17/22 06:15 Guaifenesin 100 Mg/5 Ml Udc 10 Ml PO 300 mg Q4H PRN Administration COUGH AND CONGEST ION Ceftriaxone Sodium 1,000 mg/ 50 mls @ 100 mls/ hr 06/14/22 12:15 06/17/22 14:05 Sodium Chloride IV 100 mls/hr Q24H JOSIAS Administration Protocol Azithromycin 500 m g/ Sodium 250 mls @ 250 mls /hr 06/14/22 12:45 06/16/22 16:01 Chloride IV Infused Q24H JOSIAS Infusion Protocol Remdesivir 100 mg/ Sodium 100 mls @ 100 mls /hr 06/15/22 18:00 06/16/22 20:29 Chloride IV 06/18/22 18:59 Infused Q24H JOSIAS Infusion Lorazepam 0.5 mg 06/14/22 14:31 06/17/22 10:59 Lorazepam 2 Mg/M l Inj 1 Ml IVP 0.5 mg Q4H PRN Administration ANXIETY Oseltamivir Phosph ate 75 mg 06/14/22 18:00 06/17/22 10:38 Oseltamivir Phos phate 75 Mg Capsul e PO 75 mg BID JOSIAS Administration Pantoprazole Sodiu m 40 mg 06/15/22 09:00 06/17/22 10:[address] 40 Mg Tablet PO 40 mg DAILY JOSIAS Administration Vitals/I&O/Wt Last Vital Signs Temp 98.0 F 06/17/22 04:00 Pulse 99 06/17/22 15:54 Resp 18 06/17/22 15:54 BP 181/96 06/17/22 04:00 Pulse Ox 95 06/17/22 15:54 O2 Del Method 06/17/22 15:54 O2 Flow Rate 40 06/17/22 15:54 FiO2 30 06/17/22 15:54 06/17/22 06/17/22 06/17/22 06:59 14:59 22:59 Output Total 300 / 900 Balance -300 / -263 Physical Exam Const: COMMON NORMALS: patient oriented x3 Resp: OTHER: Diminished air entry bilaterally Cardio: COMMON NORMALS: regular rate, regular rhythm, S1 normal heart sound present, S2 normal heart sound present, No gallops present (Cardio), No murmurs present (Cardio), No rub (Cardio) and Peripheral pulses 2+ throughout RATE: regular rate RHYTHM: regular rhythm HEART SOUNDS: S1 normal heart sound present and S2 normal heart sound present PERIPHERAL PULSES: Peripheral pulses 2+ throughout GI: COMMON NORMALS: Normal to inspection, nondistended, normoactive bowel sounds present, Soft to palpation, non-tender, No hepatosplenomegaly present and no masses AUSCULTATION: Yes normoactive bowel sounds PALPATION: Yes Soft to palpation and Yes No hepatosplenomegaly present RECTAL EXAM: deferred Extremity: COMMON NORMALS: no clubbing, cyanosis or edema and no pedal edema Neuro: COMMON NORMALS: patient oriented x3 Data 06/17/22 05:42 06/17/22 05:42 Micro: Microbiology 06/14/22 13:45 Gram Stain - Final Sputum - Expectorated Sputum Sputum Culture - Final A&P Assessment and plan (1) Pneumonia due to COVID-19 virus: Patient tested positive for COVID on June 11. Symptoms perhaps since late last week but also had COVID booster of last week. Continue dexamethasone 6 mg IV every 24 hours Continue remdesivir Pulmonary toilet Incentive spirometry Try to promote prone positioning Wean oxygen as tolerated Try to avoid overhydration Cannot rule out superimposed bacterial infection considering elevated procalcitonin. Continue Rocephin and Zithromax. Sputum culture pending. MRSA PCR negative CTA was negative for pulmonary embolism Presentation consistent with acute hypoxic respiratory failure Continue Mucinex Try to mobilize today and get up with physical therapy (2) Influenza A: Continue Tamiflu See other notations (3) Acute exacerbation of chronic obstructive airways disease: Continue dexamethasone DuoNeb every 4 hours Budesonide twice daily (4) Acute respiratory failure with hypoxia: See notations above Wean oxygen as tolerated Moderate respiratory distress is present currently (5) Transaminitis: Hepatitis panel negative Likely secondary to viral infection Improved Plan Full code Lovenox for DVT prophylaxis Attestations Medical Necessity Statement*: Patient is to be in hospital for management of respiratory failure. Coding Level of Care Code Acute Manager Primary for [facility] Fwd Exam Detailed Diagnoses Pneumonia due to COVID-19 virus U07.1; J12.82 Influenza A J10.1 Acute exacerbation of chronic obstructive airways disease J44.1 Acute respiratory failure with hypoxia J96.01 Transaminitis R74.01
[2022-06-17] MEDS: azithromycin 500 MG in sodium chloride 0.9% 250 ML 250 MG IV (17:27)
[2022-06-17] MEDS: remdesivir 100 MG in sodium chloride 0.9% (100 ml) 80 ML IV (20:01)
[2022-06-17] MEDS: temazepam 15 mg Capsule PO (21:06)
[2022-06-18] VITALS (10 sets, daily range): BP systolic 129–158; BP diastolic 61–93; PULSE 82–101; RESP 17–27; TEMP 36.6–36.7; O2SAT 92–98
[2022-06-18] MEDS: lidocaine 2% viscous 15 ML, aluminum-mag hydrox-simethicon 30 ML, sucralfate oral liq 1 GM PO (02:11)
[2022-06-18] MEDS: ipratropium-albuterol 3 mL Neb INHALATION ×5 (04:02→20:24)
[2022-06-18 06:04] LABS: Basophils # 0.1 10^3/uL (0.0-0.1); Basophils % 0.5 %; Hematocrit 35.4 % (37.0-47.0); Lymphocytes # 0.8 10^3/uL (0.8-4.8); Lymphocytes % 8.3 %; Mean Corpuscular HGB Conc 31.1 g/dL (30.0-36.0); Mean Corpuscular Hemoglobin 25.9 pg (28.0-34.0); Mean Corpuscular Volume 83.3 fl (81-99); Mean Platelet Volume 12.4 fL (7.4-10.4); Monocytes # 0.8 10^3/uL (0.2-0.9); Monocytes % 7.7 %; Neutrophils # 7.51 10^3/uL (1.8-7.7); Nucleated Red Blood Cells % 0 %; Platelet Count 301 10^3/cmm (130-400); Red Blood Count 4.25 10^6/uL (4.1-5.3); Red Cell Distribution Width 15.2 % (12.1-15.1); White Blood Count 9.9 10^3/uL (4.0-10.0)
[2022-06-18 06:28] LABS: Blood Urea Nitrogen 18 mg/dL (8-23); Calcium 8.1 mg/dL (8.5-10.5); Carbon Dioxide 30 mmol/L (22-29); Chloride 103 mmol/L (98-107); Glucose 117 mg/dL (65-115); Osmolality Calculated 291 mOsm/kg (285-295); Sodium 139 mmol/L (136-145)
[2022-06-18 06:57] LABS: Slide Review Slide Review Perform
[2022-06-18 06:58] LABS: Neutrophils % 83.5 %
--- NOTE | 2022-06-18 08:16 | P.PN_ITS ---
Subjective Subjective: Patient was seen and examined this morning, currently she is saturating well on 30% FiO2 at 30 L/min, sitting up in chair, afebrile, still has significant weakness as well as shortness of breath, though she feels slightly better as compared to yesterday. Medications: Reviewed: Yes Medication Review Details: Generic Name Dose Route Start Last Admin Trade Name Freq PRN Reason Stop Dose Admin Acetaminophen 650 mg 06/14/22 12:26 06/17/22 14:03 Acetaminophen 32 5 Mg Tablet PO 650 mg Q6H PRN Administration Mild/Mod Pain Or Temp >/= 101 Albuterol/Ipratrop ium 3 ml 06/14/22 16:00 06/17/22 15:54 Ipratropium-Albu terol 3 Ml Neb INHALATION 3 ml Q4H.RESPIRATORY S CH Administration Amlodipine Besylat e 5 mg 06/17/22 09:00 06/17/22 10:39 Amlodipine 5 Mg Tablet PO 5 mg DAILY JOSIAS Administration Budesonide 0.5 mg 06/14/22 20:00 06/17/22 07:59 Budesonide 0.5 M g/2 Ml Neb INHALATION 0.5 mg BID.RESPIRATORY S CH Administration Dexamethasone 6 mg 06/15/22 09:00 06/17/22 10:39 Dexamethasone 10 Mg/Ml Inj IVP 6 mg Q24H JOSIAS Administration Enoxaparin Sodium 40 mg 06/14/22 14:00 06/17/22 14:07 Enoxaparin 40 Mg /0.4 Ml Syringe SUBCUT 40 mg Q24H JOSIAS Administration Guaifenesin 600 mg 06/15/22 09:00 06/17/22 10:37 Guaifenesin 600 Mg Tablet PO 600 mg BID JOSIAS Administration Guaifenesin 300 mg 06/17/22 00:27 06/17/22 06:15 Guaifenesin 100 Mg/5 Ml Udc 10 Ml PO 300 mg Q4H PRN Administration COUGH AND CONGEST ION Ceftriaxone Sodium 1,000 mg/ 50 mls @ 100 mls/ hr 06/14/22 12:15 06/17/22 14:05 Sodium Chloride IV 100 mls/hr Q24H JOSIAS Administration Protocol Azithromycin 500 m g/ Sodium 250 mls @ 250 mls /hr 06/14/22 12:45 06/16/22 16:01 Chloride IV Infused Q24H JOSIAS Infusion Protocol Remdesivir 100 mg/ Sodium 100 mls @ 100 mls /hr 06/15/22 18:00 06/16/22 20:29 Chloride IV 06/18/22 18:59 Infused Q24H JOSIAS Infusion Lorazepam 0.5 mg 06/14/22 14:31 06/17/22 10:59 Lorazepam 2 Mg/M l Inj 1 Ml IVP 0.5 mg Q4H PRN Administration ANXIETY Oseltamivir Phosph ate 75 mg 06/14/22 18:00 06/17/22 10:38 Oseltamivir Phos phate 75 Mg Capsul e PO 75 mg BID JOSIAS Administration Pantoprazole Sodiu m 40 mg 06/15/22 09:00 06/17/22 10:[address] 40 Mg Tablet PO 40 mg DAILY JOSIAS Administration Vitals/I&O/Wt Last Vital Signs Temp 97.9 F 06/18/22 04:00 Pulse 82 06/18/22 06:00 Resp 17 06/18/22 04:00 BP 158/92 06/18/22 04:00 Pulse Ox 93 06/18/22 04:00 O2 Del Method 06/18/22 04:00 O2 Flow Rate 35 06/18/22 04:00 FiO2 30 06/18/22 04:00 06/17/22 06/18/22 06/18/22 22:59 06:59 14:59 Intake Total 1270 / 1270 Output Total 500 / 500 250 / 750 Balance 770 / 770 -250 / 520 Physical Exam Const: COMMON NORMALS: patient oriented x3 Resp: OTHER: Diminished air entry bilaterally Cardio: COMMON NORMALS: regular rate, regular rhythm, S1 normal heart sound present, S2 normal heart sound present, No gallops present (Cardio), No murmurs present (Cardio), No rub (Cardio) and Peripheral pulses 2+ throughout RATE: regular rate RHYTHM: regular rhythm HEART SOUNDS: S1 normal heart sound present and S2 normal heart sound present PERIPHERAL PULSES: Peripheral pulses 2+ throughout GI: COMMON NORMALS: Normal to inspection, nondistended, normoactive bowel sounds present, Soft to palpation, non-tender, No hepatosplenomegaly present and no masses AUSCULTATION: Yes normoactive bowel sounds PALPATION: Yes Soft to palpation and Yes No hepatosplenomegaly present RECTAL EXAM: deferred Extremity: COMMON NORMALS: no clubbing, cyanosis or edema and no pedal edema Neuro: COMMON NORMALS: patient oriented x3 Urinary Catheter Management: Phillips: Cath Placed During This Visit: no Reason for Continuing Indwelling Catheter: Other Data 06/18/22 05:15 06/18/22 05:15 A&P Assessment and plan (1) Pneumonia due to COVID-19 virus: Patient tested positive for COVID on June 11. Symptoms perhaps since late last week but also had COVID booster of last week. Continue dexamethasone 6 mg IV every 24 hours Continue remdesivir Pulmonary toilet Incentive spirometry Try to promote prone positioning Wean oxygen as tolerated Try to avoid overhydration Cannot rule out superimposed bacterial infection considering elevated procalcitonin. Continue Rocephin and Zithromax. Sputum culture pending. MRSA PCR negative CTA was negative for pulmonary embolism Presentation consistent with acute hypoxic respiratory failure Continue Mucinex Try to mobilize today and get up with physical therapy (2) Influenza A: Continue Tamiflu See other notations (3) Acute exacerbation of chronic obstructive airways disease: Continue dexamethasone DuoNeb every 4 hours Budesonide twice daily (4) Acute respiratory failure with hypoxia: See notations above Wean oxygen as tolerated Moderate respiratory distress is present currently (5) Transaminitis: Hepatitis panel negative Likely secondary to viral infection Improved Plan 77-year-old female with past medical history of COPD not on home oxygen Sjogrens syndrome was brought in from home with chief complaint of worsening shortness of breath, subjective fever, cough with yellow sputum. She was tested positive for both COVID and flu on June 12, and since then she has continued to experience worsening respiratory symptoms. Currently she is being managed for. Assessment: Acute hypoxic respiratory failure secondary to COVID-19 pneumonia and flu [id number] Influenza HTN Plan: CTA chest done on admission: No pulmonary embolism, extensive bilateral scattered pulmonary opacifications. 2D echo: Normal LV size and systolic function with EF of 59%, moderate LVH, grade 1/ 4 diastolic dysfunction. Blood culture negative till date, MRSA PCR negative, sputum gram stain and culture negative. Monitor x-ray chest Monitor : ESR CRP, ferritin and D-dimer, LDH. Monitor ABG Procalcitonin 7.79. Currently patient is on remdesivir, Tamiflu, Empirically on ceftriaxone azithromycin given elevated procalcitonin for possible superimposed bacterial infection Continue dexamethasone 6 mg IV daily for now. Continue DuoNebs, budesonide inhaler, incentive spirometer flutter valve. Continue amlodipine for hypertension. CODE STATUS: Full code DVT prophylaxis: On Lovenox Attestations Medical Necessity Statement*: Patient is in hospital for management of COVID- pneumonia Coding Level of Care Code Acute Cobbler Mckay for [facility] Fwd Exam Detailed Diagnoses Pneumonia due to COVID-19 virus U07.1; J12.82 Influenza A J10.1 Acute exacerbation of chronic obstructive airways disease J44.1 Acute respiratory failure with hypoxia J96.01 Transaminitis R74.01
[2022-06-18] MEDS: guaiFENesin 600 mg Tablet PO ×2 (08:59→18:52)
[2022-06-18] MEDS: amlodipine 5 mg Tablet PO (08:59)
[2022-06-18] MEDS: pantoprazole DR 40 mg Tablet PO (08:59)
[2022-06-18] MEDS: oseltamivir phosphate 75 mg Capsule PO ×2 (08:59→18:52)
[2022-06-18] MEDS: dexamethasone 10 mg/mL INJ 6 MG IVP (09:05)
[2022-06-18] MEDS: budesonide 0.5 mg/2 mL Neb INHALATION ×2 (09:13→20:24)
--- NOTE | 2022-06-18 12:33 | XRR_ITS ---
PROCEDURE INFORMATION: Exam: XR Chest Exam date and time: 06/18/2022 2:25 PM Age: 77 years old Clinical indication: Shortness of breath; TECHNIQUE: Imaging protocol: Radiologic exam of the chest. Views: 1 view. COMPARISON: CR XR chest 1V portable [id number] 06/14/2022 9:42 AM FINDINGS: Lungs: COPD morphology of the chest with prominent interstitial markings and bilateral emphysematous changes. Pleural spaces: There is pleural thickening and/or scarring at the lung apices. Heart/Mediastinum: The heart is upper limits of normal in size. Vasculature: There is calcified plaque in the aortic arch. Bones/joints: Unremarkable. XR/XR chest 1V portable [id number] IMPRESSION: Findings as stated above are consistent with COPD.
[2022-06-18] MEDS: cefTRIAXone 1,000 MG in sodium chloride 0.9% (plus) 50 ML 100 MG IV (13:44)
[2022-06-18] MEDS: azithromycin 500 MG in sodium chloride 0.9% 250 ML 250 MG IV (14:20)
[2022-06-18] MEDS: enoxaparin 40 mg/0.4 mL Syringe SUBCUT (14:20)
[2022-06-18] MEDS: remdesivir 100 MG in sodium chloride 0.9% (100 ml) 80 ML IV (18:52)
[2022-06-18] MEDS: guaiFENesin 100 mg/5 mL UDC 10 mL 300 MG PO (21:34)
[2022-06-18] MEDS: temazepam 15 mg Capsule PO (21:35)
[2022-06-19] VITALS (18 sets, daily range): BP systolic 121–139; BP diastolic 64–75; PULSE 78–99; RESP 16–26; TEMP 36.4–37.3; O2SAT 95–100
[2022-06-19] MEDS: ipratropium-albuterol 3 mL Neb INHALATION ×6 (00:57→19:38)
[2022-06-19 04:02] LABS: Basophils % 0.3 %; Eosinophils # 0.1 10^3/uL (0.0-0.8); Eosinophils % 0.6 %; Hematocrit 34.9 % (37.0-47.0); Hemoglobin 10.8 g/dL (11.5-15.3); Lymphocytes # 0.9 10^3/uL (0.8-4.8); Lymphocytes % 9.5 %; Mean Corpuscular HGB Conc 30.9 g/dL (30.0-36.0); Mean Corpuscular Hemoglobin 25.8 pg (28.0-34.0); Mean Corpuscular Volume 83.5 fl (81-99); Mean Platelet Volume 12.2 fL (7.4-10.4); Monocytes # 0.6 10^3/uL (0.2-0.9); Monocytes % 6.6 %; Neutrophils # 7.28 10^3/uL (1.8-7.7); Neutrophils % 75.4 %; Nucleated Red Blood Cells % 0 %; Platelet Count 304 10^3/cmm (130-400); Red Blood Count 4.18 10^6/uL (4.1-5.3); Red Cell Distribution Width 15.6 % (12.1-15.1); White Blood Count 9.7 10^3/uL (4.0-10.0)
[2022-06-19 04:12] LABS: Erythrocyte Sedimentation Rate 43 mm/hr (0-15)
[2022-06-19 04:17] LABS: C Reactive Protein 18.6 mg/L (0.0-4.9); Ferritin 243 ng/mL (15-150); Lactate Dehydrogenase 391 U/L (135-214)
[2022-06-19 04:25] LABS: Procalcitonin 0.28 ng/mL (0-0.5)
[2022-06-19 04:26] LABS: Anion Gap 11.3 (5-19); Blood Urea Nitrogen 18 mg/dL (8-23); Calcium 8.2 mg/dL (8.5-10.5); Carbon Dioxide 28 mmol/L (22-29); Chloride 103 mmol/L (98-107); Glucose 143 mg/dL (65-115); Osmolality Calculated 290 mOsm/kg (285-295); Potassium 4.3 mmol/L (3.5-5.1); Sodium 138 mmol/L (136-145)
[2022-06-19 04:51] LABS: Slide Review Slide Review Perform
[2022-06-19] MEDS: dexamethasone 10 mg/mL INJ 6 MG IVP (08:17)
[2022-06-19] MEDS: pantoprazole DR 40 mg Tablet PO (08:18)
[2022-06-19] MEDS: oseltamivir phosphate 75 mg Capsule PO ×2 (08:24→17:44)
[2022-06-19] MEDS: amlodipine 10 mg Tablet PO (08:24)
[2022-06-19] MEDS: guaiFENesin 600 mg Tablet PO ×2 (08:25→17:44)
[2022-06-19] MEDS: budesonide 0.5 mg/2 mL Neb INHALATION ×2 (08:32→19:38)
--- NOTE | 2022-06-19 11:16 | PC.SOCIAL ---
IMM Updated Updated pt on IMM via phone. No questions voiced. Provided pt a copy. Initialed, dated, & timed copy in chart.
[2022-06-19] MEDS: cefTRIAXone 1,000 MG in sodium chloride 0.9% (plus) 50 ML 100 MG IV (11:47)
[2022-06-19] MEDS: azithromycin 500 MG in sodium chloride 0.9% 250 ML 250 MG IV (15:11)
[2022-06-19] MEDS: enoxaparin 40 mg/0.4 mL Syringe SUBCUT (15:12)
--- NOTE | 2022-06-19 16:07 | PC.NURSE ---
Phillips removed at 1419
--- NOTE | 2022-06-19 16:09 | PC.NURSE ---
Patient turned down to 6L high flow at satting at 99%. Heated high flow turned off.
--- NOTE | 2022-06-19 16:48 | P.PN_ITS ---
Subjective Subjective: Continues to be on heated high flow at 30 L/min at 30% FiO2. States that she was feeling pretty well this morning, exercise capacity was improving, now tired after having some lunch. Slightly tachypneic with respiratory rate at 25/min. Afebrile. Medications: Reviewed: Yes Medication Review Details: Generic Name Dose Route Start Last Admin Trade Name Freq PRN Reason Stop Dose Admin Acetaminophen 650 mg 06/14/22 12:26 06/17/22 14:03 Acetaminophen 32 5 Mg Tablet PO 650 mg Q6H PRN Administration Mild/Mod Pain Or Temp >/= 101 Albuterol/Ipratrop ium 3 ml 06/14/22 16:00 06/17/22 15:54 Ipratropium-Albu terol 3 Ml Neb INHALATION 3 ml Q4H.RESPIRATORY S CH Administration Amlodipine Besylat e 5 mg 06/17/22 09:00 06/17/22 10:39 Amlodipine 5 Mg Tablet PO 5 mg DAILY JOSIAS Administration Budesonide 0.5 mg 06/14/22 20:00 06/17/22 07:59 Budesonide 0.5 M g/2 Ml Neb INHALATION 0.5 mg BID.RESPIRATORY S CH Administration Dexamethasone 6 mg 06/15/22 09:00 06/17/22 10:39 Dexamethasone 10 Mg/Ml Inj IVP 6 mg Q24H JOSIAS Administration Enoxaparin Sodium 40 mg 06/14/22 14:00 06/17/22 14:07 Enoxaparin 40 Mg /0.4 Ml Syringe SUBCUT 40 mg Q24H JOSIAS Administration Guaifenesin 600 mg 06/15/22 09:00 06/17/22 10:37 Guaifenesin 600 Mg Tablet PO 600 mg BID JOSIAS Administration Guaifenesin 300 mg 06/17/22 00:27 06/17/22 06:15 Guaifenesin 100 Mg/5 Ml Udc 10 Ml PO 300 mg Q4H PRN Administration COUGH AND CONGEST ION Ceftriaxone Sodium 1,000 mg/ 50 mls @ 100 mls/ hr 06/14/22 12:15 06/17/22 14:05 Sodium Chloride IV 100 mls/hr Q24H JOSIAS Administration Protocol Azithromycin 500 m g/ Sodium 250 mls @ 250 mls /hr 06/14/22 12:45 06/16/22 16:01 Chloride IV Infused Q24H JOSIAS Infusion Protocol Remdesivir 100 mg/ Sodium 100 mls @ 100 mls /hr 06/15/22 18:00 06/16/22 20:29 Chloride IV 06/18/22 18:59 Infused Q24H JOSIAS Infusion Lorazepam 0.5 mg 06/14/22 14:31 06/17/22 10:59 Lorazepam 2 Mg/M l Inj 1 Ml IVP 0.5 mg Q4H PRN Administration ANXIETY Oseltamivir Phosph ate 75 mg 06/14/22 18:00 06/17/22 10:38 Oseltamivir Phos phate 75 Mg Capsul e PO 75 mg BID JOSIAS Administration Pantoprazole Sodiu m 40 mg 06/15/22 09:00 06/17/22 10:[address] 40 Mg Tablet PO 40 mg DAILY JOSIAS Administration Vitals/I&O/Wt Last Vital Signs Temp 99.1 F 06/19/22 11:26 Pulse 91 06/19/22 16:05 Resp 26 H 06/19/22 16:05 BP 122/64 06/19/22 16:05 Pulse Ox 100 06/19/22 16:05 O2 Del Method 06/19/22 16:01 O2 Flow Rate 35 06/19/22 04:50 FiO2 30 06/19/22 12:00 06/19/22 06/19/22 06/19/22 06:59 14:59 22:59 Intake Total 290 / 290 245.833 / 535.833 Output Total 350 / 1700 920 / 920 Balance -350 / -580 290 / 290 -674.167 / -384.167 Physical Exam Narrative: General: No acute distress, AO x3 HEENT: PERRLA, pupils bilaterally equal and reactive, pallors not present Chest: Normal vesicular breath sounds, no added sounds, equal good air entry bilaterally CVS: S1-S2 regular, no murmurs, no tachycardia, no gallops, no rubs Abdomen: Soft, nontender, no organomegaly, bowel sounds present Neuro: No focal deficits, no facial deformity, AO x3, power 5/5 in all limbs Urinary Catheter Management: Phillips: Cath Placed During This Visit: yes, but has since been removed by the nurse Reason for Continuing Indwelling Catheter: Decision to DC Catheter Date Urinary Catheter Removed: 06/19/22 Time Urinary Catheter Discontinued: 14:19 Data 06/19/22 03:03 06/19/22 03:03 Micro: Microbiology 06/14/22 09:55 Blood Culture - Final Blood NO GROWTH AFTER 5 DAYS 06/14/22 09:50 Blood Culture - Final Blood NO GROWTH AFTER 5 DAYS A&P Assessment and plan (1) Pneumonia due to COVID-19 virus: Patient tested positive for COVID on June 11. Symptoms perhaps since late last week but also had COVID booster of last week. Continue dexamethasone 6 mg IV every 24 hours Continue remdesivir Pulmonary toilet Incentive spirometry Try to promote prone positioning Wean oxygen as tolerated Try to avoid overhydration Cannot rule out superimposed bacterial infection considering elevated procalcitonin. Continue Rocephin and Zithromax. Sputum culture pending. MRSA PCR negative CTA was negative for pulmonary embolism Presentation consistent with acute hypoxic respiratory failure Continue Mucinex Try to mobilize today and get up with physical therapy (2) Influenza A: Continue Tamiflu See other notations (3) Acute exacerbation of chronic obstructive airways disease: Continue dexamethasone DuoNeb every 4 hours Budesonide twice daily (4) Acute respiratory failure with hypoxia: See notations above Wean oxygen as tolerated Moderate respiratory distress is present currently (5) Transaminitis: Hepatitis panel negative Likely secondary to viral infection Improved Plan 77-year-old female with past medical history of COPD not on home oxygen Sjogrens syndrome was brought in from home with chief complaint of worsening shortness of breath, subjective fever, cough with yellow sputum. She was tested positive for both COVID and flu on June 12, and since then she has continued to experience worsening respiratory symptoms. Currently she is being managed for. Assessment: Acute hypoxic respiratory failure secondary to COVID-19 pneumonia and flu [id number] Influenza HTN Plan: CTA chest done on admission: No pulmonary embolism, extensive bilateral scattered pulmonary opacifications. 2D echo: Normal LV size and systolic function with EF of 59%, moderate LVH, grade 1/ 4 diastolic dysfunction. Blood culture negative till date, MRSA PCR negative, sputum gram stain and culture negative. Monitor x-ray chest Monitor : ESR CRP, ferritin and D-dimer, LDH. Monitor ABG Procalcitonin 7.79. Currently patient is on remdesivir, Tamiflu, Empirically on ceftriaxone azithromycin given elevated procalcitonin for possible superimposed bacterial infection Continue dexamethasone 6 mg IV daily for now. Continue DuoNebs, budesonide inhaler, incentive spirometer flutter valve. Continue amlodipine for hypertension. Plan for today: Lasix 20 mg IV today for developing lower extremity swelling, slightly with signs of fluid overload as well. Try to wean down on oxygen requirements from heated high flow to regular high flow nasal cannula, he to use oxygen pendant if needed. CODE STATUS: Full code DVT prophylaxis: On Lovenox Attestations Medical Necessity Statement*: Needs ongoing hospital care for IV antibiotics, IV steroids, weaning attempts at oxygen. Coding Level of Care Code Acute Bioinformatics Support Specialist [facility] Diagnoses Pneumonia due to COVID-19 virus U07.1; J12.82 Influenza A J10.1 Acute exacerbation of chronic obstructive airways disease J44.1 Acute respiratory failure with hypoxia J96.01 Transaminitis R74.01
[2022-06-19] MEDS: FUROsemide 10 mg/mL SDV 2mL 20 MG IVP (17:44)
[2022-06-19] MEDS: temazepam 15 mg Capsule PO (22:53)
[2022-06-19] MEDS: guaiFENesin 100 mg/5 mL UDC 10 mL 300 MG PO (22:54)
[2022-06-20] VITALS (13 sets, daily range): BP systolic 100–127; BP diastolic 58–66; PULSE 79–102; RESP 13–23; TEMP 36.6–37.1; O2SAT 91–100
[2022-06-20] MEDS: ipratropium-albuterol 3 mL Neb INHALATION ×6 (00:38→22:10)
[2022-06-20 03:12] LABS: Basophils % 0.3 %; Eosinophils # 0.1 10^3/uL (0.0-0.8); Eosinophils % 0.5 %; Hematocrit 34.7 % (37.0-47.0); Hemoglobin 10.9 g/dL (11.5-15.3); Lymphocytes # 0.7 10^3/uL (0.8-4.8); Lymphocytes % 5.8 %; Mean Corpuscular HGB Conc 31.4 g/dL (30.0-36.0); Mean Corpuscular Hemoglobin 26.1 pg (28.0-34.0); Monocytes # 0.8 10^3/uL (0.2-0.9); Monocytes % 6.4 %; Neutrophils # 10.45 10^3/uL (1.8-7.7); Neutrophils % 82.1 %; Nucleated Red Blood Cells % 0 %; Platelet Count 278 10^3/cmm (130-400); Red Blood Count 4.18 10^6/uL (4.1-5.3); Red Cell Distribution Width 15.6 % (12.1-15.1); White Blood Count 12.7 10^3/uL (4.0-10.0)
[2022-06-20 03:38] LABS: Blood Urea Nitrogen 20 mg/dL (8-23); Carbon Dioxide 29 mmol/L (22-29); Chloride 100 mmol/L (98-107); Glucose 187 mg/dL (65-115); Osmolality Calculated 294 mOsm/kg (285-295); Sodium 138 mmol/L (136-145)
[2022-06-20] MEDS: oseltamivir phosphate 75 mg Capsule PO ×2 (08:23→17:41)
[2022-06-20] MEDS: guaiFENesin 600 mg Tablet PO ×2 (08:23→17:41)
[2022-06-20] MEDS: pantoprazole DR 40 mg Tablet PO (08:23)
[2022-06-20] MEDS: amlodipine 10 mg Tablet PO (08:23)
[2022-06-20] MEDS: dexamethasone 10 mg/mL INJ 6 MG IVP (08:32)
[2022-06-20] MEDS: budesonide 0.5 mg/2 mL Neb INHALATION ×2 (09:17→22:10)
[2022-06-20] MEDS: cefTRIAXone 1,000 MG in sodium chloride 0.9% (plus) 50 ML 100 MG IV (12:19)
[2022-06-20] MEDS: azithromycin 500 MG in sodium chloride 0.9% 250 ML 250 MG IV (13:04)
[2022-06-20] MEDS: enoxaparin 40 mg/0.4 mL Syringe SUBCUT (13:24)
--- NOTE | 2022-06-20 17:04 | P.PN_ITS ---
Subjective Subjective: Patient has been weaned down to room air today. Currently saturating well on room air. Has been sitting in chair for extended period of time today, walked around a little bit and tolerated this. Diuresed well after Lasix 20 mg x 1. Medications: Reviewed: Yes Medication Review Details: Generic Name Dose Route Start Last Admin Trade Name Freq PRN Reason Stop Dose Admin Acetaminophen 650 mg 06/14/22 12:26 06/17/22 14:03 Acetaminophen 32 5 Mg Tablet PO 650 mg Q6H PRN Administration Mild/Mod Pain Or Temp >/= 101 Albuterol/Ipratrop ium 3 ml 06/14/22 16:00 06/17/22 15:54 Ipratropium-Albu terol 3 Ml Neb INHALATION 3 ml Q4H.RESPIRATORY S CH Administration Amlodipine Besylat e 5 mg 06/17/22 09:00 06/17/22 10:39 Amlodipine 5 Mg Tablet PO 5 mg DAILY JOSIAS Administration Budesonide 0.5 mg 06/14/22 20:00 06/17/22 07:59 Budesonide 0.5 M g/2 Ml Neb INHALATION 0.5 mg BID.RESPIRATORY S CH Administration Dexamethasone 6 mg 06/15/22 09:00 06/17/22 10:39 Dexamethasone 10 Mg/Ml Inj IVP 6 mg Q24H JOSIAS Administration Enoxaparin Sodium 40 mg 06/14/22 14:00 06/17/22 14:07 Enoxaparin 40 Mg /0.4 Ml Syringe SUBCUT 40 mg Q24H JOSIAS Administration Guaifenesin 600 mg 06/15/22 09:00 06/17/22 10:37 Guaifenesin 600 Mg Tablet PO 600 mg BID JOSIAS Administration Guaifenesin 300 mg 06/17/22 00:27 06/17/22 06:15 Guaifenesin 100 Mg/5 Ml Udc 10 Ml PO 300 mg Q4H PRN Administration COUGH AND CONGEST ION Ceftriaxone Sodium 1,000 mg/ 50 mls @ 100 mls/ hr 06/14/22 12:15 06/17/22 14:05 Sodium Chloride IV 100 mls/hr Q24H JOSIAS Administration Protocol Azithromycin 500 m g/ Sodium 250 mls @ 250 mls /hr 06/14/22 12:45 06/16/22 16:01 Chloride IV Infused Q24H JOSIAS Infusion Protocol Remdesivir 100 mg/ Sodium 100 mls @ 100 mls /hr 06/15/22 18:00 06/16/22 20:29 Chloride IV 06/18/22 18:59 Infused Q24H JOSIAS Infusion Lorazepam 0.5 mg 06/14/22 14:31 06/17/22 10:59 Lorazepam 2 Mg/M l Inj 1 Ml IVP 0.5 mg Q4H PRN Administration ANXIETY Oseltamivir Phosph ate 75 mg 06/14/22 18:00 06/17/22 10:38 Oseltamivir Phos phate 75 Mg Capsul e PO 75 mg BID JOSIAS Administration Pantoprazole Sodiu m 40 mg 06/15/22 09:00 06/17/22 10:[address] 40 Mg Tablet PO 40 mg DAILY JOSIAS Administration Vitals/I&O/Wt Last Vital Signs Temp 98.5 F 06/20/22 16:00 Pulse 88 06/20/22 16:00 Resp 17 06/20/22 16:00 BP 100/58 06/20/22 16:00 Pulse Ox 95 06/20/22 16:00 O2 Del Method 06/20/22 16:00 O2 Flow Rate 1 06/20/22 05:21 FiO2 30 06/19/22 12:00 06/20/22 06/20/22 06/20/22 06:59 14:59 22:59 Intake Total 1260 / 1260 Output Total 200 / 1320 200 / 200 200 / 400 Balance -200 / -084.536 9807 / 1060 -200 / 860 Physical Exam Narrative: General: No acute distress, AO x3 HEENT: PERRLA, pupils bilaterally equal and reactive, pallors not present Chest: Normal vesicular breath sounds, no added sounds, equal good air entry bilaterally CVS: S1-S2 regular, no murmurs, no tachycardia, no gallops, no rubs Abdomen: Soft, nontender, no organomegaly, bowel sounds present Neuro: No focal deficits, no facial deformity, AO x3, power 5/5 in all limbs Urinary Catheter Management: Phillips: Cath Placed During This Visit: yes, but has since been removed by the nurse Reason for Continuing Indwelling Catheter: Decision to DC Catheter Date Urinary Catheter Removed: 06/19/22 Time Urinary Catheter Discontinued: 14:19 Data 06/20/22 02:06/20/22 02:22 A&P Assessment and plan (1) Pneumonia due to COVID-19 virus: Patient tested positive for COVID on June 11. Symptoms perhaps since late last week but also had COVID booster of last week. Continue dexamethasone 6 mg IV every 24 hours Continue remdesivir Pulmonary toilet Incentive spirometry Try to promote prone positioning Wean oxygen as tolerated Try to avoid overhydration Cannot rule out superimposed bacterial infection considering elevated procalcitonin. Continue Rocephin and Zithromax. Sputum culture pending. MRSA PCR negative CTA was negative for pulmonary embolism Presentation consistent with acute hypoxic respiratory failure Continue Mucinex Try to mobilize today and get up with physical therapy (2) Influenza A: Continue Tamiflu See other notations (3) Acute exacerbation of chronic obstructive airways disease: Continue dexamethasone DuoNeb every 4 hours Budesonide twice daily (4) Acute respiratory failure with hypoxia: See notations above Wean oxygen as tolerated Moderate respiratory distress is present currently (5) Transaminitis: Hepatitis panel negative Likely secondary to viral infection Improved Plan 77-year-old female with past medical history of COPD not on home oxygen Sjogrens syndrome was brought in from home with chief complaint of worsening shortness of breath, subjective fever, cough with yellow sputum. She was tested positive for both COVID and flu on June 12, and since then she has continued to experience worsening respiratory symptoms. Currently she is being managed for. Assessment: Acute hypoxic respiratory failure secondary to COVID-19 pneumonia and flu now improving. [id number] Influenza HTN Plan: CTA chest done on admission: No pulmonary embolism, extensive bilateral scattered pulmonary opacifications. Patient was needing to be on heated high flow over the past several days, successfully weaned down to high flow nasal cannula and then room air today. 2D echo: Normal LV size and systolic function with EF of 59%, moderate LVH, grade 1/ 4 diastolic dysfunction. Blood culture negative till date, MRSA PCR negative, sputum gram stain and culture negative. Chest x-ray stable Currently patient is on remdesivir, Tamiflu, Empirically on ceftriaxone azithromycin given elevated procalcitonin for possible superimposed bacterial infection We will convert all of her IV medications to oral today and plan to discharge her tomorrow if continues to do well. Euvolemic today, can hold off on Lasix today. CODE STATUS: Full code DVT prophylaxis: On Lovenox Attestations Medical Necessity Statement*: Convert IV to p.o. medications, anticipate discharge in the upcoming 24 hours if continues to do well. Coding Level of Care Code Acute Fundraising Sale Representative for [facility] Diagnoses Pneumonia due to COVID-19 virus U07.1; J12.82 Influenza A J10.1 Acute exacerbation of chronic obstructive airways disease J44.1 Acute respiratory failure with hypoxia J96.01 Transaminitis R74.01
--- NOTE | 2022-06-20 18:08 | PC.RESP ---
Home Oxygen Evaluation Patient walked around her room x 4 and did not experience any desaturations. Patient's SpO2 stayed at 96% and better on room air during the evaluation.
[2022-06-20] MEDS: nystatin 100,000 unit/mL UDC 5 mL 100000 UNIT PO (21:04)
[2022-06-20] MEDS: guaiFENesin 100 mg/5 mL UDC 10 mL 300 MG PO (21:08)
[2022-06-21] VITALS (12 sets, daily range): BP systolic 114–126; BP diastolic 57–81; PULSE 80–103; RESP 19–29; TEMP -5.5–36.9; O2SAT 89–99
[2022-06-21] MEDS: temazepam 15 mg Capsule PO (01:14)
[2022-06-21] MEDS: ipratropium-albuterol 3 mL Neb INHALATION ×3 (01:50→11:58)
[2022-06-21] MEDS: budesonide 0.5 mg/2 mL Neb INHALATION (08:32)
[2022-06-21] MEDS: nystatin 100,000 unit/mL UDC 5 mL 100000 UNIT PO (10:51)
[2022-06-21] MEDS: guaiFENesin 600 mg Tablet PO (10:51)
[2022-06-21] MEDS: oseltamivir phosphate 75 mg Capsule PO (10:52)
[2022-06-21] MEDS: predniSONE 20 mg Tablet 40 MG PO (10:52)
[2022-06-21] MEDS: pantoprazole DR 40 mg Tablet PO (10:52)
[2022-06-21] MEDS: amlodipine 10 mg Tablet PO (10:53)
--- NOTE | 2022-06-21 12:10 | PC.SOCIAL ---
IMM Updated Updated pt on IMM. No questions voiced. Provided pt a copy. Initialed, dated, & timed copy in chart.
--- NOTE | 2022-06-21 12:18 | PM.DCS ---
Discharge Providers Date of Admission: 06/14/22 13:33 Date of Discharge: June 21, 2022 Attending Provider at Admission: Orlando Valle MD Attending Provider at Discharge: Tiffany Villavicencio MD Diagnoses at Discharge Discharge Diagnosis (1) Pneumonia due to COVID-19 virus: Status: Acute (2) Influenza A: Status: Acute (3) Acute exacerbation of chronic obstructive airways disease: Status: Acute (4) Acute respiratory failure with hypoxia: Status: Acute (5) Transaminitis: Status: Acute Reason for Visit Reason for Visit: covid and flu + since sunday, SOB Hospital Course Hospital Course Jannet Parr is a 77 year old female presenting to the emergency department with worsening shortness of breath.? She was diagnosed with flu and COVID a by rapid antigen testing on June 12 to [facility] and [place].?She had been coughing up yellowish substance to grayish substance.? She had become more short of breath.? on 06/14 she came to the emergency department and was requiring oxygen, which is new for her.? She was admitted to the hospital due to pneumonia from COVID-19 and influenza coinfection. She was started on treatment with IV remdesivir which she received for 5 days. She was also started on Tamiflu 75 mg p.o. twice daily. She received treatment with IV steroids dexamethasone 6 mg IV every 24 hours. for elevated procal she received abx as well. For her acute hypoxic respiratory failure she needed initial respiratory support with heated high flow nasal cannula, during the course of admission and with treatment she was able to be successfully weaned down to room air today. She also had mild transaminitis likely related to her acute viral infections. Will benefit from rechecking in 1 week. She is being discharged today in stable to improved condition. Recommendation to continue inhalers and prednisone 20 mg p.o. daily for additional 3 days after discharge. Physical Exam Narrative: General: No acute distress, AO x3 HEENT: PERRLA, pupils bilaterally equal and reactive, pallors not present Chest: Normal vesicular breath sounds, no added sounds, equal good air entry bilaterally CVS: S1-S2 regular, no murmurs, no tachycardia, no gallops, no rubs Abdomen: Soft, nontender, no organomegaly, bowel sounds present Neuro: No focal deficits, no facial deformity, AO x3, power 5/5 in all limbs Urinary Catheter Management: Phillips: Cath Placed During This Visit: yes, but has since been removed by the nurse Reason for Continuing Indwelling Catheter: Decision to DC Catheter Date Urinary Catheter Removed: 06/19/22 Time Urinary Catheter Discontinued: 14:19 Discharge Data Studies Completed and Pending Completed Studies During Hospitalization Category Date Time Status CTA chest [CT angio chest PE protcl [id number]] Stat Cat Scan 06/14/22 10:10 Completed XR chest 1V portable [id number] Routine Exams 06/18/22 12:33 Completed XR chest 1V portable [id number] Stat Exams 06/14/22 09:30 Completed CV. echo complete* [id number] Routine Ultrasound 06/16/22 15:11 Completed Radiology Impressions Chest CTA 06/14/22 10:10 IMPRESSION: 1. No pulmonary embolism. 2. Extensive bilateral scattered pulmonary opacifications. Predominantly in a tree-in-bud airspace distribution with more focal opacification at the RIGHT apex. Favor viral pneumonitis. 3. Enlarged mediastinal and hilar lymph nodes, likely reactive. 4. Mild cardiomegaly with small circumferential pericardial effusion. Chest X-Ray 06/18/22 12:33 IMPRESSION: Findings as stated above are consistent with COPD. Laboratory Results WBC 12.7 10^3/uL (4.0-10.0) H 06/20/22 02:22 RBC 4.18 10^6/uL (4.1-5.3) 06/20/22 02:22 Hgb 10.9 g/dL (11.5-15.3) L 06/20/22 02:22 Hct 34.7 % (37.0-47.0) L 06/20/22 02:22 MCV 83.0 fl (81-99) 06/20/22 02:22 MCH 26.1 pg (28.0-34.0) L 06/20/22 02:22 MCHC 31.4 g/dL (30.0-36.0) 06/20/22 02:22 RDW 15.6 % (12.1-15.1) H 06/20/22 02:22 Plt Count 278 10^3/cmm (130-400) 06/20/22 02:22 MPV 12.0 fL (7.4-10.4) H 06/20/22 02:22 Neut % (Auto) 82.1 % 06/20/22 02:22 Lymph % (Auto) 5.8 % 06/20/22 02:22 [place] % (Auto) 6.4 % 06/20/22 02:22 Eos % (Auto) 0.5 % 06/20/22 02:22 Baso % (Auto) 0.3 % 06/20/22 02:22 Neut # (Auto) 10.45 10^3/uL (1.8-7.7) H 06/20/22 02:22 Lymph # (Auto) 0.7 10^3/uL (0.8-4.8) L 06/20/22 02:22 [place] # (Auto) 0.8 10^3/uL (0.2-0.9) 06/20/22 02:22 Eos # (Auto) 0.1 10^3/uL (0.0-0.8) 06/20/22 02:22 Baso # (Auto) 0.0 10^3/uL (0.0-0.1) 06/20/22 02:22 Nucleated RBC % (auto) 0 % 06/20/22 02:22 Total Counted 100 (0-100) 06/14/22 09:50 Atypical Lymphs % 10.0 % (0-5) H 06/14/22 09:50 Absolute Neutrophils 7.2 10^3/cmm (1.4-6.5) H 06/14/22 09:50 Segmented Neutrophils 61 % 06/14/22 09:50 Abs Segm Neuts (Man) 5.8 10/cmm (1.6-7.1) 06/14/22 09:50 Band Neutrophils 15.0 % 06/14/22 09:50 Abs Band Neuts (Man) 1.4 10^3/cmm (0.0-1.2) H 06/14/22 09:50 Absolute Lymphocytes 2.1 10^3/cmm (1.2-3.4) 06/14/22 09:50 Lymphocytes (Manual) 12 % 06/14/22 09:50 Monocytes (Manual) 2.0 % 06/14/22 09:50 Absolute Monocytes 0.2 10^3/cmm (0.1-0.6) 06/14/22 09:50 Eosinophils (Manual) 0 % 06/14/22 09:50 Absolute Eosinophils 0.0 10^3/cmm (0.0-0.7) 06/14/22 09:50 Basophils (Manual) 0.0 % 06/14/22 09:50 Absolute Basophils 0.0 10^3/cmm (0.0-0.2) 06/14/22 09:50 Nucleated RBCs # 0.0 /100WBC 06/20/22 02:22 Pathologist Review Yes 06/14/22 09:50 Platelet Estimate Normal (Normal) 06/14/22 09:50 Polychromasia Trace 06/14/22 09:50 Hypochromasia Trace 06/14/22 09:50 Poikilocytosis Trace 06/14/22 09:50 Anisocytosis Trace 06/14/22 09:50 Microcytosis Trace 06/14/22 09:50 Macrocytosis Trace 06/14/22 09:50 Spherocytes Trace 06/14/22 09:50 ESR 43 mm/hr (0-15) H 06/19/22 03:03 Specimen Type Arterial 06/14/22 09:28 Sample Site Radial, left 06/14/22 09:28 ABG pH 7.43 (7.35-7.45) 06/14/22 09:28 ABG pCO2 42.7 mmHg (35-45) 06/14/22 09:28 ABG pO2 82.0 mmHg (80.0-100.0) 06/14/22 09:28 ABG HCO3 28.4 mmol/L (22-26) H 06/14/22 09:28 ABG Base Excess 3.6 mmol/L (-2.0-2.0) H 06/14/22 09:28 Jose Miguel Test Pos 06/14/22 09:28 Hematocrit 37.1 % (37-47) 06/14/22 09:28 Hgb O2 Saturation 95.6 % (95-100) 06/14/22 09:28 Carboxyhemoglobin 1.1 %THgb (0.4-20.1) 06/14/22 09:28 Methemoglobin 0.7 % (0.4-1.5) 06/14/22 09:28 Total Hemoglobin 12.1 g/dL (12-16) 06/14/22 09:28 O2 Delivery Device Nc 06/14/22 09:28 O2 Liters/Min 3.0 % 06/14/22 09:28 Shirt Folding Machine Operator ID Socrates 06/14/22 09:28 Sodium 138 mmol/L (136-145) 06/20/22 02:22 Potassium 4.0 mmol/L (3.5-5.1) 06/20/22 02:22 Chloride 100 mmol/L (98-107) 06/20/22 02:22 Carbon Dioxide 29 mmol/L (22-29) 06/20/22 02:22 Anion Gap 13.0 (5-19) 06/20/22 02:22 BUN 20 mg/dL (8-23) 06/20/22 02:22 Creatinine 0.4 mg/dL (0.5-0.9) L 06/20/22 02:22 GFR Calculation Not Reportable 06/20/22 02:22 Glucose 187 mg/dL (65-115) H 06/20/22 02:22 POC Glucose 144 mg/dL (70-110) H 06/14/22 20:52 Calculated Osmolality 294 mOsm/kg (285-295) 06/20/22 02:22 Lactic Acid 1.8 mmol/L (0.5-2.2) 06/14/22 09:50 Calcium 8.0 mg/dL (8.5-10.5) L 06/20/22 02:22 Magnesium 2.0 mg/dL (1.7-2.3) 06/15/22 05:35 Ferritin 243 ng/mL (15-150) H 06/19/22 03:03 Total Bilirubin 0.3 mg/dL (0.15-1.2) 06/17/22 05:42 AST 14 U/L (0-32) 06/17/22 05:42 ALT 32 U/L (0-33) 06/17/22 05:42 Alkaline Phosphatase 169 U/L (35-105) H 06/17/22 05:42 Lactate Dehydrogenase 391 U/L (135-214) H 06/19/22 03:03 Troponin T Baseline 18 ng/L (0-10) H 06/14/22 09:50 Troponin T 120 Minute 19.94 ng/L (0-10) H 06/14/22 11:55 Delta Troponin T 1.94 ABS# (0-10) 06/14/22 11:55 Troponin T Hi Sens 6Hr 22.55 ng/L (0-10) H 06/14/22 16:00 Troponin T Hi Sens 6Hr Delta 4.55 ng/L (0-12) 06/14/22 16:00 C-Reactive Protein 18.6 mg/L (0.0-4.9) H 06/19/22 03:03 NT-Pro-B Natriuret Pep 5031 pg/mL (0-450) H 06/14/22 14:21 Total Protein 6.2 g/dL (6.6-8.7) L 06/17/22 05:42 Albumin 2.9 g/dL (3.5-5.2) L 06/17/22 05:42 Globulin 3.3 g/dL (1.3-4.6) 06/17/22 05:42 Procalcitonin 0.28 ng/mL (0-0.5) 06/19/22 03:03 Hepatitis A IgM Ab Non-reactive (Nonreactive) 06/14/22 09:50 Hep Bs Antigen Non-reactive (Nonreactive) 06/14/22 09:50 Hep B Core IgM Ab Non-reactive (Nonreactive) 06/14/22 09:50 Hepatitis C Antibody Non-reactive (Nonreactive) 06/14/22 09:50 SARS-CoV-2 Ag (Rapid) negative (Negative) 06/14/22 10:53 Vitals Last Vital Signs Temp 22 F L 06/21/22 08:00 Pulse 92 06/21/22 11:58 Resp 20 H 06/21/22 11:58 BP 126/81 06/21/22 07:35 Pulse Ox 97 06/21/22 11:58 O2 Del Method 06/21/22 11:58 O2 Flow Rate 1 06/20/22 05:21 FiO2 30 06/19/22 12:00 Discharge Plan Discharge Patient Disposition: Home Condition: Stable Prescriptions: New Advair Diskus 500-50 mcg/dose blister with device 1 inh inhalation BID 30 Days Qty: 60 2RF amlodipine 10 mg Tablet 10 mg PO DAILY 30 Days Qty: 30 0RF prednisone 20 mg Tablet 20 mg PO DAILY 3 Days Qty: 3 0RF Continued pantoprazole 40 mg tablet,delayed release (DR/EC) 40 mg PO DAILY PRN (Reason: Acid Reflux) Ventolin HFA 90 mcg/actuation HFA aerosol inhaler 2 puff INHALATION Q4H PRN (Reason: Shortness Of Breath Or Wheezing) 30 Days Qty: 1 2RF Spiriva with HandiHaler 18 mcg capsule, w/inhalation device 18 mcg INHALATION DAILY 30 Days Qty: 1 2RF Discontinued prednisone 10 mg tablet See Rx Instructions .ROUTE .COMPLEX Rx Instructions: DIRECTED Paxlovid (EUA) 300 mg (150 mg x 2)-100 mg tablets,dose pack See Rx Instructions .ROUTE .COMPLEX Rx Instructions: DIRECTED ON PACKAGE Discharge Orders: Discharge Order (Routine); Ordered 06/21/22 Ordered By: Tiffany Villavicencio Other Ambulatory Orders: DME: [facility] (Order) Location: None Selected Ordered By: Tiffany Villavicencio Discharge Diet: Usual diet Discharge Activity: Resume usual activity Patient Instructions: Opioid Safety Discharge Attestations Time Spent in Discharge Care*: greater than 30 min Quality Metrics Clinical Quality Measures [ No reported AMI, CVA or VTE this stay] Coding Level of Care Code Acute [facility] note Diagnoses Pneumonia due to COVID-19 virus U07.1; J12.82 Influenza A J10.1 Acute exacerbation of chronic obstructive airways disease J44.1 Acute respiratory failure with hypoxia J96.01 Transaminitis R74.01
--- NOTE | 2022-06-21 15:52 | PC.NURSE ---
Patient was discharged at 1544pm via wheelchair to main entrance with . Patient was given discharge instructions and education and verbalized all understanding. Medications were meds to beds and patient received all before leaving.
== END 2022-06-21 15:44 | disposition home or self-care (01) | DRG 177 ==
LOC: ER 11:23 → CSU 13:33
PROVIDERS: Internal Medicine; Admitting Provider Internal Medicine; Emergency Provider Emergency Medicine; Visit Provider Student in an Organized Health Care Education/Training Program
DX: U07.1 COVID-19 (principal); J12.82 Pneumonia due to coronavirus disease 2019; J96.01 Acute respiratory failure with hypoxia; J44.1 Chronic obstructive pulmonary disease with (acute) exacerbation; J10.1 Influenza due to other identified influenza virus with other respiratory manifestations; Z79.51 Long term (current) use of inhaled steroids; M35.00 Sjogren syndrome, unspecified; F17.200 Nicotine dependence, unspecified, uncomplicated; F41.9 Anxiety disorder, unspecified; I10 Essential (primary) hypertension
CPT/HCPCS: 36415; 36416; 36600; 71045; 71275; 80048; 80053; 80074; 82728; 82805; 82962; 83605; 83615; 83735; 83880; 84145; 84484; 85007; 85025; 85651; 86140; 87040; 87070; 87205; 87426; 87641; 93005; 93306; 94640; 94760; 96365; 96367; 96372; 96375; 97110; 97162; 97530; 99285; J0248; J0456; J0696; J1100; J1650; J1940; J2060; J2930; J7040; J7050; J7512; J7613; J7626; Q9967

== ENCOUNTER 2022-07-11 11:24 | Outpatient (CLI) | payer MEDICARE, OTHER, SELFPAY ==
--- NOTE | 2022-07-11 11:53 | XR_ITS ---
WS: [id number] Chest 2 views, 07/11/2022 Clinical Data: PERSISTENT FEVER/PNEUMONIA DUE TO COVID 19 Comparison: Portable chest, 06/18/2022 Findings: No nodules, masses or effusions are seen. The heart is normal. The pulmonary vascularity is not increased. No pneumonia or pneumothorax is seen. The diaphragms are flattened. The aortic arch a nd descending thoracic aorta show mild tortuosity and calcification. XR/XR chest 2V* [id number] Impression: Atherosclerosis and hyperinflation.
== END 2022-07-11 11:25 | disposition home or self-care (01) ==
PROVIDERS: PCP Family Medicine; Visit Provider Family Medicine
DX: R50.9 Fever, unspecified (principal); U07.1 COVID-19; I70.90 Unspecified atherosclerosis
CPT/HCPCS: 71046

== ENCOUNTER 2022-08-10 11:33 | Inpatient (IN) | payer MEDICARE, OTHER, SELFPAY ==
[2022-08-10] VITALS (13 sets, daily range): BP systolic 109–145; BP diastolic 61–93; PULSE 82–122; RESP 16–40; TEMP 36.6–37.7; O2SAT 95–98; BMI 18.6
--- NOTE | 2022-08-10 11:48 | ECG_ITS ---
[facility] Test Date: 2022-08-10 Pat Name: Jannet Parr Department: Room: Gender: Female Isotope Hydrologist: : 1945 Requested By: Reinaldo Stacy Order Number: [id number] Abdon MD: Rula Roberts M.D. Measurements Intervals [place] Rate: 125 P: 84 MT: 156 QRS: 43 QRSD: 83 T: 81 QT: 295 QTc: 426 Interpretive Statements SINUS TACHYCARDIA POSSIBLE RIGHT VENTRICULAR CONDUCTION DELAY [RSR (QR) IN V1/V2] POSSIBLE ANTERIOR MYOCARDIAL INFARCTION , OF INDETERMINATE AGE [30 ms Q WAVE IN V3/V4, OR R < 0.2 mV IN V4] Compared to ECG 06/17/2022 05:18:28 Myocardial infarct finding now present ST (T wave) deviation no longer present Electronically Signed On 08-10-2022 20:04:46 DIE ASSEMBLER by Rula Roberts M.D. [email or web address] [email or web address] [email or web address] [email or web address].[email or web address]/store/[id number]
--- NOTE | 2022-08-10 11:52 | W.ED.SOB ---
HPI - SOB/Dyspnea General: Chief Complaint: Shortness of Breath/Dyspnea Stated Complaint: abnormal labs Time Seen by Provider: 08/10/22 11:52 History of Present Illness: HPI Narrative: Ms. Parr is a 77-year-old lady with history of COPD presenting to the emergency department for shortness of breath and cough. She reports onset of symptoms approximately 3 days ago and gradual. Productive cough associated fevers and generalized malaise. Overall course of symptoms has worsened. Intensity is moderate to severe. No other specific changes in health, exacerbating, or alleviating factors identified. Onset (ago): day(s) Timing: progressively worsening Severity: moderate Exacerbating factors: nothing Relieving factors: nothing Known history of: COPD Associated symptoms: Reports cough and fever(s) Review of Systems General: Reports: 10 or more systems reviewed and unremarkable except in HPI and below Const: Reports: fever(s) [facility] ED PFSH: Medical History COPD (chronic obstructive pulmonary disease) Sjogrens syndrome Surgical History History of tubal ligation No significant past surgical history Social History Smoking and tobacco status: current some day smoker Alcohol intake: never Physical Exam Const: COMMON NORMALS: alert GENERAL APPEARANCE: cooperative and well developed HENMT: COMMON NORMALS: normocephalic and atraumatic HEAD & SCALP: normocephalic and atraumatic Eye: COMMON NORMALS: conjunctivae normal CONJUNCTIVA: Yes conjunctivae normal SCLERA: sclerae normal Neck/C-Spine: COMMON NORMALS: supple GENERAL: Yes trachea midline Resp: EFFORT & INSPECTION: Yes able to speak in complete sentences and Yes tachypneic AUSCULTATION: diminished lung sounds Cardio: COMMON NORMALS: regular rhythm RATE: tachycardic RHYTHM: regular rhythm GI: COMMON NORMALS: Soft to palpation PALPATION: Yes Soft to palpation and No Tenderness to palpation present (GI) PERCUSSION: normal to percussion Extremity: GENERAL: Yes normal exam except as noted and No edema Neuro: COMMON NORMALS: moves all extremities SENSORIUM/ORIENTATION: Yes alert and No Orientation impaired Psych: COMMON NORMALS: mental status grossly normal and Normal thought process present THOUGHT PROCESS: Normal thought process present Course Vital Signs: Vital signs: Vital Signs Temperature 98.0 F 08/13/22 15:10 Pulse Rate 98 08/13/22 15:10 Respiratory Rate 16 08/13/22 15:10 Blood Pressure 138/62 08/13/22 15:10 Pulse Oximetry 98 08/13/22 15:10 Oxygen Delivery Me thod 08/13/22 12:00 Oxygen Flow Rate 2 08/13/22 12:10 MDM - SOB/Dyspnea Medical Decision Making 77-year-old lady presenting with respiratory symptoms. Patient somewhat ill on exam with fever at clinic and tachycardia with tachypnea. EKG demonstrates sinus tachycardia, normal axis and intervals, no STEMI. Labs with no significant hematologic abnormality. ABG with respiratory alkalosis and satisfactory PO2 on supplemental oxygen. No significant metabolic abnormalities. 2-hour delta troponin is negative proBNP elevated. Patient is positive for human metapneumovirus. Chest x-ray with hyperinflation. Given the discrepancy between patient's clinical presentation and imaging findings I believe that advanced imaging is appropriate. Patient has no PE, there is pericardial effusion and LVH, there is pneumonitis. During ED course patient treated with fluids, RT treatment, steroids with some improvement though still required supplemental oxygen with increased respiratory symptoms. Most likely etiology of symptoms is exacerbation of COPD secondary to viral infection. The results of ED evaluation were discussed with the patient including plan for admission due to requirement for level of care not available if discharged to prevent significant worsening/deterioration. Patient agreeable with plan. Discussed with hospitalist service who was agreeable to admit patient. Medical Records I reviewed the patient's medical records. Lab Data I reviewed the patient's lab results. 08/12/22 03:30 08/13/22 03:00 Labs/Radiology: Radiology Impressions Chest X-Ray 08/10/22 11:57 Impression: Atherosclerosis and hyperinflation. Laboratory Results WBC 6.7 10^3/uL (4.0-10.0) 08/10/22 12:11 RBC 5.09 10^6/uL (4.1-5.3) 08/10/22 12:11 Hgb 13.3 g/dL (11.5-15.3) 08/10/22 12:11 Hct 43.3 % (37.0-47.0) 08/10/22 12:11 MCV 85.1 fl (81-99) 08/10/22 12:11 MCH 26.1 pg (28.0-34.0) L 08/10/22 12:11 MCHC 30.7 g/dL (30.0-36.0) 08/10/22 12:11 RDW 16.1 % (12.1-15.1) H 08/10/22 12:11 Plt Count 195 10^3/cmm (130-400) 08/10/22 12:11 MPV 12.1 fL (7.4-10.4) H 08/10/22 12:11 Neut % (Auto) 85.4 % 08/10/22 12:11 Lymph % (Auto) 10.8 % 08/10/22 12:11 [place] % (Auto) 3.3 % 08/10/22 12:11 Eos % (Auto) 0.1 % 08/10/22 12:11 Baso % (Auto) 0.1 % 08/10/22 12:11 Neut # (Auto) 5.70 10^3/uL (1.8-7.7) 08/10/22 12:11 Lymph # (Auto) 0.7 10^3/uL (0.8-4.8) L 08/10/22 12:11 [place] # (Auto) 0.2 10^3/uL (0.2-0.9) 08/10/22 12:11 Eos # (Auto) 0.0 10^3/uL (0.0-0.8) 08/10/22 12:11 Baso # (Auto) 0.0 10^3/uL (0.0-0.1) 08/10/22 12:11 Nucleated RBC % (auto) 0 % 08/10/22 12:11 Nucleated RBCs # 0.0 /100WBC 08/10/22 12:11 D-Dimer 0.99 ug/mIFEU (0-0.59) H 08/10/22 11:40 Specimen Type Arterial 08/10/22 12:35 Sample Site Brachial, right 08/10/22 12:35 ABG pH 7.46 (7.35-7.45) H 08/10/22 12:35 ABG pCO2 33.6 mmHg (35-45) L 08/10/22 12:35 ABG pO2 89.6 mmHg (80.0-100.0) 08/10/22 12:35 ABG HCO3 24.0 mmol/L (22-26) 08/10/22 12:35 ABG Base Excess 0.6 mmol/L (-2.0-2.0) 08/10/22 12:35 Jose Miguel Test Pos 08/10/22 12:35 Hematocrit 36.4 % (37-47) L 08/10/22 12:35 O2 Delivery Device Nc 08/10/22 12:35 O2 Liters/Min 2.0 % 08/10/22 12:35 FiO2 28.0 % 08/10/22 12:35 Powerhouse Helper ID Monro 08/10/22 12:35 Sodium 135 mmol/L (136-145) L 08/10/22 12:11 Potassium 4.5 mmol/L (3.5-5.1) 08/10/22 12:11 Chloride 99 mmol/L (98-107) 08/10/22 12:11 Carbon Dioxide 22 mmol/L (22-29) 08/10/22 12:11 Anion Gap 18.5 (5-19) 08/10/22 12:11 BUN 13 mg/dL (8-23) 08/10/22 12:11 Creatinine 0.6 mg/dL (0.5-0.9) 08/10/22 12:11 GFR Calculation Not Reportable 08/10/22 12:11 Glucose 84 mg/dL (65-115) 08/10/22 12:11 Calculated Osmolality 279 mOsm/kg (285-295) L 08/10/22 12:11 Lactic Acid 1.2 mmol/L (0.5-2.2) 08/10/22 12:11 Calcium 9.1 mg/dL (8.5-10.5) 08/10/22 12:11 Total Bilirubin 0.5 mg/dL (0.15-1.2) 08/10/22 12:11 AST 22 U/L (0-32) 08/10/22 12:11 ALT 15 U/L (0-33) 08/10/22 12:11 Alkaline Phosphatase 135 U/L (35-105) H 08/10/22 12:11 Troponin T Baseline 20 ng/L (0-10) H 08/10/22 12:11 Troponin T 120 Minute 18.25 ng/L (0-10) H 08/10/22 14:37 Delta Troponin T -1.75 ABS# (0-10) L 08/10/22 14:37 Troponin T Hi Sens 6Hr 18.65 ng/L (0-10) H 08/10/22 18:19 Troponin T Hi Sens 6Hr Delta -1.35 ng/L (0-12) L 08/10/22 18:19 C-Reactive Protein 34.0 mg/L (0.0-4.9) H 08/10/22 12:11 NT-Pro-B Natriuret Pep 4796 pg/mL (0-450) H 08/10/22 12:11 Total Protein 7.3 g/dL (6.6-8.7) 08/10/22 12:11 Albumin 4.1 g/dL (3.5-5.2) 08/10/22 12:11 Globulin 3.2 g/dL (1.3-4.6) 08/10/22 12:11 Procalcitonin 0.05 ng/mL (0-0.5) 08/10/22 12:11 Procalcitonin 0.06 ng/mL (0-0.5) 08/10/22 12:11 TSH 1.58 uIU/mL (0.27-4.20) 08/10/22 12:11 TSH 1.63 uIU/mL (0.27-4.20) 08/10/22 12:11 Coronavirus 229E (PCR) Not detected (NOT DETECT) 08/10/22 12:30 Human Metapneumovir PCR Detected (NOT DETECT) A 08/10/22 14:35 Entero/Rhino (PCR) Not detected (NOT DETECT) 08/10/22 14:35 SARS-CoV-2 (PCR) Not detected (NOT DETECT) 08/10/22 12:30 Critical Care Time Critical Care Time: Critical Care Time: Yes Total Critical Care Time: 35 Attestation: Due to a high probability of clinically significant, possibly life threatening deterioration, the patient required my highest level of attention and preparedness to intervene emergently and I personally spent this critical care time directly and personally managing the patient. This critical care time included obtaining a history; examining the patient; pulse oximetry; ordering and review of laboratory and imaging studies; arranging urgent treatment with development of a management plan; evaluation of patient's response to treatment; frequent reassessment; and, discussions with other providers as applicable. It was exclusive of separately billable procedures. Primary system involved is cardiopulmonary Discharge Plan Discharge Patient Disposition: Admitted As Inpatient Admit Provider: Merly Ford Clinical Impression: Acute exacerbation of chronic obstructive airways disease, Pneumonia due to human metapneumovirus (hMPV), Hypoxemia, Effusion, pericardium Condition: Stable Discharge Diet: Cardiac and Low Salt Discharge Activity: Resume usual activity Coding Level of Care Code ED Civil Engineering Project Designer for Eric Sorto
--- NOTE | 2022-08-10 11:57 | XR_ITS ---
WS: [id number] Portable AP upright chest, 08/10/2022 Clinical Data: sob Comparison: Two-view chest, 07/11/2022 Findings: No nodules, masses or effusions are seen. The heart is normal. The pulmonary vascularity is not increased. No pneumonia or pneumothorax is seen. The aortic arch and descending thoracic aorta s how mild tortuosity. The diaphragms are flattened. There are monitor leads on the chest wall. XR/XR chest 1V portable [id number] Impression: Atherosclerosis and hyperinflation.
[2022-08-10 12:24] LABS: Basophils % 0.1 %; Eosinophils % 0.1 %; Hematocrit 43.3 % (37.0-47.0); Hemoglobin 13.3 g/dL (11.5-15.3); Lymphocytes # 0.7 10^3/uL (0.8-4.8); Lymphocytes % 10.8 %; Mean Corpuscular HGB Conc 30.7 g/dL (30.0-36.0); Mean Corpuscular Hemoglobin 26.1 pg (28.0-34.0); Mean Corpuscular Volume 85.1 fl (81-99); Mean Platelet Volume 12.1 fL (7.4-10.4); Monocytes # 0.2 10^3/uL (0.2-0.9); Monocytes % 3.3 %; Neutrophils % 85.4 %; Nucleated Red Blood Cells % 0 %; Platelet Count 195 10^3/cmm (130-400); Red Blood Count 5.09 10^6/uL (4.1-5.3); Red Cell Distribution Width 16.1 % (12.1-15.1); White Blood Count 6.7 10^3/uL (4.0-10.0)
[2022-08-10] MEDS: sodium chloride 0.9% 1,000 ML 999 ML IV (12:27)
[2022-08-10 12:45] LABS: Troponin(5th) Baseline 20 ng/L (0-10)
[2022-08-10 12:48] LABS: ABG PCO2 33.6 mmHg (35-45); ABG PH Result 7.46 (7.35-7.45); Arterial Blood Gas Hematocrit 36.4 % (37-47); Base Excess ABG 0.6 mmol/L (-2.0-2.0); Blood Gas Allen Test Pos; Blood Gas Operator Identificat MONRO; Blood Gas Sample Site Brachial, right; Blood Gas Sample Type Arterial; Oxygen Device NC; PO2 ABG 89.6 mmHg (80.0-100.0)
[2022-08-10] MEDS: ipratropium-albuterol 3 mL Neb INHALATION ×2 (12:50→21:31)
[2022-08-10 12:56] LABS: NT Pro B Type Natriuretic Pept 4796 pg/mL (0-450); Procalcitonin 0.05 ng/mL (0-0.5); Thyroid Stimulating Hormone 1.58 uIU/mL (0.27-4.20)
[2022-08-10 13:07] LABS: Alanine Aminotransferase 15 U/L (0-33); Albumin Level 4.1 g/dL (3.5-5.2); Alkaline Phosphatase 135 U/L (35-105); Anion Gap 18.5 (5-19); Aspartate Amino Transferase 22 U/L (0-32); Blood Urea Nitrogen 13 mg/dL (8-23); Calcium 9.1 mg/dL (8.5-10.5); Carbon Dioxide 22 mmol/L (22-29); Chloride 99 mmol/L (98-107); Creatinine Clr Calc Pharmacy 48.4308; Globulin 3.2 g/dL (1.3-4.6); Glucose 84 mg/dL (65-115); Osmolality Calculated 279 mOsm/kg (285-295); Potassium 4.5 mmol/L (3.5-5.1); Sodium 135 mmol/L (136-145); Total Bilirubin 0.5 mg/dL (0.15-1.2); Total Protein 7.3 g/dL (6.6-8.7)
[2022-08-10 13:35] LABS: D Dimer 0.99 ug/mIFEU (0-0.59)
--- NOTE | 2022-08-10 13:36 | CT_ITS ---
WS: [id number] CT CHEST ANGIOGRAPHY WITH REFORMATS HISTORY: sob, tachycardia, elevated ddimer TECHNIQUE: Contiguous axial images are obtained through the chest during arterial injection of intrav enous contrast. Images are reconstructed to evaluate the pulmonary arteries. MIP imaging also reviewe d. All CT scans at [facility] use at least one of these dose optimization techniques: automat ed exposure control; mA and/or kV adjustment per patient size (includes targeted exams where dose is matched to clinical indication); or iterative reconstruction. CONTRAST: Omnipaque 350; 75 mL IV. DLP: 146.67 mGy.cm COMPARISON: 06/14/2022 Very good opacification of the pulmonary arteries. There are no filling defects or pulmonary embolism . Atherosclerotic plaque within the aorta. There is marked dilatation of the LEFT ventricle and LEFT ventricular hypertrophy. Circumferential pericardial effusion measures 10 mm and slightly increased i n size since the prior study. There is extensive mild interstitial thickening throughout both lungs with slightly improved aeration at the RIGHT apex. There are a few tiny areas of tree-in-bud airspace disease bilaterally. Overall t here has been some improvement. No dense consolidation. No pneumothorax. No effusions. Mildly prominent mediastinal and hilar lymph nodes. Largest lymph nodes measure approximately 12 mm. Similar to the prior exam. Small hiatal hernia. Bilateral adrenal hyperplasia. Adrenal glands are incompletely included. IMPRESSION: 1. No pulmonary embolism. 2. Mild diffuse changes of pneumonitis with moderate improvement since 06/14/2022. 3. Atherosclerosis aorta. 4. Circumferential pericardial effusion is increased now measuring 10 mm. 5. Markedly enlarged LEFT ventricle with a LEFT ventricular hypertrophy.
--- NOTE | 2022-08-10 13:57 | ECG_ITS ---
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 Measurements Intervals [place] Rate: 121 P: 0 MI: 0 QRS: 33 QRSD: 85 T: 69 QT: 322 QTc: 459 Interpretive Statements Multifocal atrial tachycardia POSSIBLE RIGHT VENTRICULAR CONDUCTION DELAY [RSR (QR) IN V1/V2] POSSIBLE ANTERIOR MYOCARDIAL INFARCTION , PROBABLY OLD [30 ms Q WAVE IN V3/V4, OR R < 0.2 mV IN V4] ABNORMAL RHYTHM ECG Compared to ECG 08/10/2022 11:48:37 Sinus tachycardia no longer present Myocardial infarct finding still present Electronically Signed On 08-10-2022 20:15:43 MICROBIAL SPECIALIST by Rula Roberts M.D. [id number]
[2022-08-10] MEDS: acetaminophen 500 mg Tablet 1000 MG PO (14:08)
[2022-08-10 14:16] LABS: Adenovirus Not Detected (NOT DETECT); Chlamydia Pneumoniae Not Detected (NOT DETECT); Coronavirus 229E,HKU1,NL63,OC4 Not Detected (NOT DETECT); Human Metapneumovirus Detected (NOT DETECT); Human Rhinovirus/Enterovirus Not Detected (NOT DETECT); Influenza A Not Detected (NOT DETECT); Influenza A H1 Not Detected (NOT DETECT); Influenza A H1-2009 Not Detected (NOT DETECT); Influenza A H3 Not Detected (NOT DETECT); Influenza B Not Detected (NOT DETECT); Mycoplasma Pneumoniae Not Detected (NOT DETECT); Parainfluenza Virus Type 1 Not Detected (NOT DETECT); Parainfluenza Virus Type 2 Not Detected (NOT DETECT); Parainfluenza Virus Type 3 Not Detected (NOT DETECT); Parainfluenza Virus Type 4 Not Detected (NOT DETECT); Respiratory Syncytial Virus A Not Detected (NOT DETECT); Respiratory Syncytial Virus B Not Detected (NOT DETECT); SARS-COV-2 Not Detected (NOT DETECT)
[2022-08-10 14:35] LABS: Human Metapneumovirus Detected (NOT DETECT); Human Rhinovirus/Enterovirus Not Detected (NOT DETECT); Results from Genmark
[2022-08-10 15:06] LABS: Troponin 5 2HR 18.25 ng/L (0-10)
[2022-08-10 15:07] LABS: Troponin 5 2HR Delta -1.75 ABS# (0-10)
[2022-08-10] MEDS: iohexol 350 mg/mL 500 mL Btl (per mL) IV (15:42)
--- NOTE | 2022-08-10 16:17 | USCV_ITS ---
Jannet Parr Age: 77 Gender: F : 1945 Exam Date: 08/10/2022 17:16 Ordering Phys: Neftaly Little MD Technologist: James Hanley [place] [facility] [place]: murmur ? pericarial effusion BP: / HR: 88 Rhythm: Sinus Technical Quality: MEASUREMENTS (Male / Female) Normal Values 2D ECHO LV Diastolic Diameter PLAX 3.0 cm 4.2 - 5.9 / 3.9 - 5.3 cm LV Systolic Diameter PLAX 2.0 cm IVS Diastolic Thickness 1.0 cm 0.6 - 1.0 / 0.6 - 0.9 cm IVS Systolic Thickness 1.3 cm LVPW Diastolic Thickness 0.9 cm 0.6 - 1.0 / 0.6 - 0.9 cm LVPW Systolic Thickness 1.6 cm LVOT Diameter 2.1 cm LV Ejection Fraction 2D Teich 64.9 % LV Ejection Fraction MOD 2C 69.9 % LV Ejection Fraction 2C AL 71.7 % LA Diameter 3.3 cm IVC Diameter 1.1 cm M-MODE Aortic Annulus Diameter 3.6 cm LA Ao Ratio MM 0.9 MV E Point Septal Separation 0.7 cm DOPPLER MV Area PHT 6.9 cm squared Mitral E to A Ratio 0.5 MV E' Velocity 41.0 cm/s Mitral E to MV E' Ratio 14.9 Mitral E to LV E' Lateral Ratio 14.1 Mitral E to LV E' Septal Ratio 16.1 TR Peak Velocity 308.7 cm/s TR Peak Gradient 38.1 mmHg TV Peak E Velocity 170.0 cm/s Right Atrial Pressure 3.0 mmHg Pulmonary Artery Systolic Pressu 41.1 mmHg FINDINGS Left Ventricle Normal left ventricular cavity size and systolic function. Increased left ventricular thickness. (LVISd-1.7 cm, PWDd-1.3 cm). Asymmetric left ventricular hypertrophy. Left ventricular ejection fraction is estimated at 70-75 %. Grade I diastolic dysfunction (abnormal relaxation filling pattern), normal to mildly elevated filling pressures. Right Ventricle Normal right ventricular size and systolic function. Right ventricular systolic pressure 41.1 mmHg. Right Atrium Normal right atrial size. Left Atrium Mildly increased left atrial size. Mitral Valve Mild mitral annular calcification. Mildly thickened mitral valve. No mitral valve stenosis. Mild mitral valve regurgitation. Systolic anterior movement of anterior mitral leaflet. Aortic Valve Structurally normal trileaflet aortic valve. No aortic valve stenosis. No aortic valve regurgitation. Resting left ventricular outflow tract gradient of (4.7 m/s) 88 mm Hg and LVOT gradient with valsalva of 135 mm Hg. Tricuspid Valve Structurally normal tricuspid valve. Pulmonic Valve Structurally normal pulmonic valve. No pulmonary valve stenosis. Trace pulmonary valve regurgitation. Pericardium Small pericardial effusion along right ventricular free wall. No evidence of hemodynamic compromise. Aorta Normal size aortic root and proximal ascending aorta. IVC Normal IVC dimension with >50% respiratory change of the inferior vena cava. CONCLUSIONS 1. Normal left ventricular cavity size and systolic function. Increased left ventricular thickness. (LVISd-1.7 cm, PWDd-1.3 cm). Asymmetric left ventricular hypertrophy. Left ventricular ejection fraction is estimated at 70-75 %. Grade I diastolic dysfunction (abnormal relaxation filling pattern), normal to mildly elevated filling pressures. 2. Resting left ventricular outflow tract gradient of (4.7 m/s) 88 mm Hg and LVOT gradient with valsalva of (5.9 m/s) 139 mm Hg. 3. Mild mitral valve regurgitation. Systolic anterior movement of anterior mitral leaflet. 4. Small pericardial effusion along right ventricular free wall. No evidence of hemodynamic compromise. 5. These findings are suggestive of hypertrophic cardiomyopathy. Clinical correlation is advised. Tonia Newsome MD (Electronically Signed) Final Date: 10 August 2022 18:42 S
[2022-08-10 17:40] LABS: Lactic Sepsis W/Reflex 1.2 mmol/L (0.5-2.2)
[2022-08-10 17:50] LABS: Procalcitonin 0.06 ng/mL (0-0.5)
[2022-08-10 17:51] LABS: Thyroid Stimulating Hormone 1.63 uIU/mL (0.27-4.20)
--- NOTE | 2022-08-10 17:59 | ECG_ITS ---
[facility] Test Date: 2022-08-10 Pat Name: Jannet Parr Department: Room: Gender: Female Clinical Cytogeneticist: : 1945 Requested By: Neftaly Little Order Number: [id number] Abdon MD: Rula Roberts M.D. Measurements Intervals [place] Rate: 92 P: 71 TX: 144 QRS: 17 QRSD: 88 T: 59 QT: 377 QTc: 466 Interpretive Statements SINUS RHYTHM POSSIBLE RIGHT VENTRICULAR CONDUCTION DELAY [RSR (QR) IN V1/V2] Compared to ECG 08/10/2022 13:56:48 Atrial fibrillation no longer present Myocardial infarct finding no longer present Electronically Signed On 08-10-2022 20:18:30 ROUGH PLANER TENDER by Rula Roberts M.D. [id number]
--- NOTE | 2022-08-10 18:34 | P.HP_ITS ---
Providers/Chief Complaint Admitting Physician: Merly Ford MD Primary Care Provider: Nya Valle MD Chief Complaint: abnormal labs History of Present Illness Jannet Parr is a 77 year old female who does not have significant past medical history other than yogurt syndrome and COPD presenting for chief complaint of febrile episodes and shortness of breath. Patient is stating that her symptoms of shortness of breath started roughly 2 days ago and then she started experienc ing fever today at Dr. Nya Valle's clinic her fever was 103 and she was asked to go to the hospital for further evaluation. Patient has not expressed any nausea, vomiting, chest pain however she has been experiencing shortness of breath on exertion in particular for last 2 to 3 days. Patient is stating that before that beginning of symptoms she was also experiencing shortness of breath when she was vacuuming and it was limiting her daily activities. She has not a very healthy and active lifestyle. 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 No one is sick with COVID-19 at home, in the ER she has been diagnosed with pericardial effusion stat echo has been requested she is hemodynamically stable heart sounds are not distant no significant signs of pulses paradoxus Echo report is pending Patient is awake and alert Review of Systems Const: Reports: fever(s) and chills Eyes: Denies: change in vision ENMT: Denies: throat pain Card: Denies: chest pain Resp: Reports: dyspnea GI: Denies: abdominal pain : Denies: flank pain Musc: Denies: neck pain Skin/Breast: Denies: rash Neuro: Denies: headache(s) Psych: Denies: anxiety Endo: Denies: polyuria Goldy/Lymph: Denies: enlarged lymph nodes All/Imm: Denies: urticaria Medications/Allergies Home Medications Medication Instructions Recorded Confirmed Last Taken Type pantoprazole 40 mg tablet,delayed 40 mg PO DAILY PRN Acid Reflux 06/14/22 08/10/22 Unknown History release albuterol sulfate 90 mcg/actuation 2 puff inhalation Q4H PRN 06/21/22 08/10/22 08/10/22 Rx aerosol inhaler (Ventolin HFA) Shortness Of Breath Or Wheezing 30 days #1 g fluticasone 500 mcg-salmeterol 50 1 inh inhalation BID 30 days #60 ea 12/08/10/22 08/09/22 Rx mcg/dose blistr powdr for inhalation (Advair Diskus) tiotropium bromide 18 mcg capsule 18 mcg inhalation DAILY 30 days #1 06/21/22 08/10/22 08/10/22 Rx with inhalation device (Spiriva Can with HandiHaler) Allergies Allergy/AdvReac Type Severity Reaction Status Date / Time No Known Allergies Allergy Verified 06/14/22 10:36 PFSH Acute PFSH: Medical History COPD (chronic obstructive pulmonary disease) Sjogrens syndrome Surgical History History of tubal ligation No significant past surgical history Social History Smoking and tobacco status: current some day smoker Alcohol intake: never Vitals/I&O/Wt Last Vital Signs Temp 99.1 F 08/10/22 14:03 Pulse 98 08/10/22 18:32 Resp 16 08/10/22 18:32 BP 110/61 08/10/22 18:32 Pulse Ox 98 08/10/22 18:32 O2 Del Method 08/10/22 17:30 O2 Flow Rate 2 08/10/22 15:30 Weight last 48 hrs Weight 47.627 kg Physical Exam Narrative: Patient is awake and alert Heart sounds not distant S1, S2 Hemodynamically stable Currently on 2 L Abdomen soft Euvolemic Pleasant and cooperative GCS 15 Nonfocal neuro exam No skin rash No headache Data 08/10/22 12:11 08/10/22 12:11 Micro: Microbiology 08/10/22 11:40 Blood Culture - Preliminary Blood SPECIMEN COLLECTED 08/10/22 11:40 Blood Culture - Preliminary Blood SPECIMEN COLLECTED A&P Assessment and plan (1) Pneumonia due to human metapneumovirus (hMPV): (2) Hypoxemia: (3) Effusion, pericardium: (4) Flu: (5) COPD (chronic obstructive pulmonary disease): Plan Hypoxia related to viral pneumonia Pericarditis with pericardial effusion Flulike symptoms Febrile at home with 103 fever No active signs of sepsis No sign of hemodynamic instability High inflammatory markers Start patient on high-dose steroids and ibuprofen Once echo is back consult cardiology if we could start colchicine for pericarditis We will follow-up with CRP, ESR and LDH Troponin trending down Hemodynamic stable Heart sounds are not distant Patient is full code Cardiac diet We will follow-up with echo report TSH normal Sjogren's syndrome patient does not take any treatment for that COPD without active wheezing DVT prophylaxis on board Check blood, viral culture COVID-negative No sign of pulmonary embolism Attestations Medical Necessity Statement*: Anticipating more than 2 midnights Coding Level of Care Code 48195 Diagnoses Pneumonia due to human metapneumovirus (hMPV) J12.3 Hypoxemia R09.02 Effusion, pericardium I31.39 Flu J11.1 COPD (chronic obstructive pulmonary disease) J44.9
[2022-08-10 18:45] LABS: Troponin 5 6HR 18.65 ng/L (0-10)
[2022-08-10 18:48] LABS: Troponin 5 6HR Delta -1.35 ng/L (0-12)
[2022-08-10 19:45] LABS: Erythrocyte Sedimentation Rate 6 mm/hr (0-15)
[2022-08-10 20:05] LABS: C Reactive Protein 32.5 mg/L (0.0-4.9); Lactate Dehydrogenase 212 U/L (135-214)
[2022-08-10 20:12] LABS: Procalcitonin 0.07 ng/mL (0-0.5)
[2022-08-10 20:50] LABS: NT Pro B Type Natriuretic Pept 5510 pg/mL (0-450)
[2022-08-10] MEDS: sucralfate 1 gm Tablet PO (22:48)
[2022-08-10] MEDS: predniSONE 20 mg Tablet 50 MG PO (22:48)
[2022-08-10] MEDS: heparin 5,000 unit/mL INJ 1 mL 5000 UNIT SUBCUT (22:48)
[2022-08-10] MEDS: colchicine 0.6 mg Tablet PO (22:49)
[2022-08-10] MEDS: ibuprofen 200 mg Tablet 600 MG PO (22:49)
[2022-08-11] VITALS (14 sets, daily range): BP systolic 107–163; BP diastolic 58–83; PULSE 68–112; RESP 18–22; TEMP 36.3–36.7; O2SAT 93–98
--- NOTE | 2022-08-11 00:12 | PC.NURSE ---
Patient requested something to help her sleep. Dr Cruz was contacted. Dr Cruz instructed to give Restoril 15mg PO PRN at bedtime.
[2022-08-11 05:03] LABS: Hematocrit 35.7 % (37.0-47.0); Hemoglobin 11.1 g/dL (11.5-15.3); Lymphocytes # 0.4 10^3/uL (0.8-4.8); Lymphocytes % 15.8 %; Mean Corpuscular HGB Conc 31.1 g/dL (30.0-36.0); Mean Corpuscular Hemoglobin 26.1 pg (28.0-34.0); Mean Corpuscular Volume 83.8 fl (81-99); Monocytes # 0.1 10^3/uL (0.2-0.9); Monocytes % 2.9 %; Neutrophils # 2.27 10^3/uL (1.8-7.7); Neutrophils % 81.3 %; Nucleated Red Blood Cells % 0 %; Platelet Count 162 10^3/cmm (130-400); Red Blood Count 4.26 10^6/uL (4.1-5.3); Red Cell Distribution Width 15.7 % (12.1-15.1); White Blood Count 2.8 10^3/uL (4.0-10.0)
[2022-08-11 05:34] LABS: Anion Gap 14.2 (5-19); Blood Urea Nitrogen 16 mg/dL (8-23); Calcium 8.6 mg/dL (8.5-10.5); Carbon Dioxide 23 mmol/L (22-29); Chloride 106 mmol/L (98-107); Creatinine Clr Calc Pharmacy 48.4308; Glucose 147 mg/dL (65-115); Magnesium 2.1 mg/dL (1.7-2.3); Osmolality Calculated 292 mOsm/kg (285-295); Potassium 4.2 mmol/L (3.5-5.1); Sodium 139 mmol/L (136-145)
[2022-08-11] MEDS: levoFLOXacin 750 mg Tablet PO (06:15)
[2022-08-11] MEDS: sucralfate 1 gm Tablet PO ×4 (06:15→20:24)
[2022-08-11] MEDS: ipratropium-albuterol 3 mL Neb INHALATION ×4 (08:29→20:30)
[2022-08-11] MEDS: predniSONE 20 mg Tablet 50 MG PO (09:39)
[2022-08-11] MEDS: heparin 5,000 unit/mL INJ 1 mL 5000 UNIT SUBCUT ×2 (09:40→20:24)
[2022-08-11] MEDS: ibuprofen 200 mg Tablet 600 MG PO (09:41)
[2022-08-11] MEDS: pantoprazole 40 mg SDV IVP ×2 (09:42→17:12)
[2022-08-11] MEDS: colchicine 0.6 mg Tablet PO (09:47)
--- NOTE | 2022-08-11 13:30 | P.PN_ITS ---
Subjective Subjective: seen this am she says she feels better has issues with acid reflux in the past Vitals/I&O/Wt Last Vital Signs Temp 97.4 F L 08/11/22 12:00 Pulse 112 H 08/11/22 12:00 Resp 22 H 08/11/22 12:00 BP 111/67 08/11/22 12:00 Pulse Ox 98 08/11/22 12:00 O2 Del Method 08/11/22 12:00 O2 Flow Rate 1 08/11/22 12:00 08/10/22 08/11/22 08/11/22 22:59 06:59 14:59 Intake Total 1000 / 1000 600 / 600 Balance 1000 / 1000 600 / 600 Weight last 48 hrs Weight 47.627 kg Weight 47.627 kg Physical Exam 2 Narrative: General: Alert oriented x3, patient seen sitting up in bed, appearing slightly anxious HEENT: Normocephalic, atraumatic, EOMI, breathing 2L NC Cardio: Regular rate rhythm, normal S1-S2, no murmurs Respiratory: clear to ausculation b/l, no wheezes no rhonchi appreciated, slightly diminished overall GI: Abdomen soft, nontender, nondistended, bowel sounds + Behavior: Appropriate and cooperative Extremities: no edema Data 08/11/22 04:54 08/11/22 04:54 Micro: Microbiology 08/10/22 11:40 Blood Culture - Preliminary Blood NEGATIVE TO DATE 08/10/22 11:40 Blood Culture - Preliminary Blood NEGATIVE TO DATE A&P Assessment and plan (1) Pneumonia due to human metapneumovirus (hMPV): (2) Effusion, pericardium: (3) Hypoxemia: (4) Acute exacerbation of chronic obstructive airways disease: (5) COPD (chronic obstructive pulmonary disease): Plan #Upper respiratory viral infection requiring oxygen #COPD exacerbation #GERD #Small pericardial effusion #Possible hypertrophic cardiomyopathy #Hx of Sjogrens syndrome - I dont believe patient has pericarditis based on my interview. Patient may be having acid reflux. I will stop ibuprofen and colchicine and start her on a GI cocktail to see response - Await sputum gm stain culture - Continue prednisone 40 daily to complete 5 days - Positive for human metapneumovirus - Continue levaquin 750 x 7 days total for empiric coverage - Continue duoneb q4H SCHD - Echo showed 1 cm small pericardial effusion without hemodynamic compromise - Will refer her to cardiology as outpatient at discharge.Will discuss with cardiology over the phone as well - Patient recently had flu, covid 1 month ago and was still recovering from that - Echo shows normal EF with diastolic dysfunction - Will check home oxygen evaluation - Continue protonix 40 daily for 2 weeks. - Will need to follow up with PCP. Full Code DVT PPX: heparin subq BID. Attestations Medical Necessity Statement*: Continue patient stay in hospital today. Plan to DC in AM. Diagnoses Pneumonia due to human metapneumovirus (hMPV) J12.3 Effusion, pericardium I31.39 Hypoxemia R09.02 Acute exacerbation of chronic obstructive airways disease J44.1 COPD (chronic obstructive pulmonary disease) J44.9
[2022-08-11] MEDS: lidocaine 2% viscous 15 ML, aluminum-mag hydrox-simethicon 30 ML, sucralfate oral liq 1 GM PO (14:56)
[2022-08-12] VITALS (11 sets, daily range): BP systolic 116–164; BP diastolic 65–87; PULSE 75–107; RESP 16–24; TEMP 36.5–36.7; O2SAT 93–97
[2022-08-12] MEDS: temazepam 15 mg Capsule PO ×2 (01:40→21:01)
[2022-08-12 04:48] LABS: Hematocrit 35.3 % (37.0-47.0); Hemoglobin 10.9 g/dL (11.5-15.3); Lymphocytes # 0.6 10^3/uL (0.8-4.8); Lymphocytes % 7.9 %; Mean Corpuscular HGB Conc 30.9 g/dL (30.0-36.0); Mean Corpuscular Hemoglobin 26.2 pg (28.0-34.0); Mean Corpuscular Volume 84.9 fl (81-99); Mean Platelet Volume 13.2 fL (7.4-10.4); Monocytes # 0.4 10^3/uL (0.2-0.9); Monocytes % 5.1 %; Neutrophils # 6.17 10^3/uL (1.8-7.7); Neutrophils % 86.9 %; Nucleated Red Blood Cells % 0 %; Platelet Count 172 10^3/cmm (130-400); Red Blood Count 4.16 10^6/uL (4.1-5.3); Red Cell Distribution Width 15.8 % (12.1-15.1); White Blood Count 7.1 10^3/uL (4.0-10.0)
[2022-08-12 05:07] LABS: Anion Gap 11.5 (5-19); Blood Urea Nitrogen 20 mg/dL (8-23); Calcium 8.4 mg/dL (8.5-10.5); Carbon Dioxide 23 mmol/L (22-29); Chloride 102 mmol/L (98-107); Creatinine Clr Calc Pharmacy 48.4308; Glucose 123 mg/dL (65-115); Osmolality Calculated 278 mOsm/kg (285-295); Potassium 4.5 mmol/L (3.5-5.1); Sodium 132 mmol/L (136-145)
[2022-08-12 05:38] LABS: Slide Review Slide Review Perform
[2022-08-12] MEDS: levoFLOXacin 750 mg Tablet PO (06:01)
[2022-08-12] MEDS: sucralfate 1 gm Tablet PO ×4 (06:01→21:01)
[2022-08-12] MEDS: ipratropium-albuterol 3 mL Neb INHALATION ×4 (08:40→19:56)
[2022-08-12] MEDS: pantoprazole 40 mg SDV IVP ×2 (08:48→17:39)
[2022-08-12] MEDS: predniSONE 20 mg Tablet 40 MG PO (08:48)
[2022-08-12] MEDS: heparin 5,000 unit/mL INJ 1 mL 5000 UNIT SUBCUT ×2 (08:49→21:01)
[2022-08-12] MEDS: FUROsemide 10 mg/mL SDV 4mL 40 MG IVP (10:40)
--- NOTE | 2022-08-12 12:50 | P.PN_ITS ---
Subjective Subjective: seen this am still on 2L NC feels slightly better says gi cocktail helped the most Vitals/I&O/Wt Last Vital Signs Temp 98.0 F 08/12/22 08:05 Pulse 78 08/12/22 11:49 Resp 20 H 08/12/22 11:49 BP 164/87 08/12/22 08:05 Pulse Ox 93 08/12/22 11:49 O2 Del Method 08/12/22 11:49 O2 Flow Rate 2 08/12/22 11:49 08/11/22 08/12/22 08/12/22 22:59 06:59 14:59 Intake Total 0 / 600 360 / 360 Output Total 800 / 800 Balance -800 / -200 0 / -200 360 / 360 Weight last 48 hrs Weight 47.627 kg Physical Exam Narrative: General: Alert oriented x3, patient seen sitting up in bed, appear ing slightly anxious HEENT: Normocephalic, atraumatic, EOMI, breathing 2L NC Cardio: Regular rate rhythm, normal S1-S2, no murmurs Respiratory: clear to ausculation b/l, no wheezes no rhonchi appreciated, slightly diminished overall GI: Abdomen soft, nontender, nondistended, bowel sounds + Behavior: Appropriate and cooperative Extremities: no edema Data 08/12/22 03:30 08/12/22 03:30 Micro: Microbiology 08/10/22 23:00 MRSA Culture - Final Nose 08/10/22 11:40 Blood Culture - Preliminary Blood NEGATIVE TO DATE 08/10/22 11:40 Blood Culture - Preliminary Blood NEGATIVE TO DATE A&P Assessment and plan (1) Pneumonia due to human metapneumovirus (hMPV): (2) Effusion, pericardium: (3) Hypoxemia: (4) Acute exacerbation of chronic obstructive airways disease: (5) COPD (chronic obstructive pulmonary disease): Plan #Upper respiratory viral infection requiring oxygen #acute on chronic diastolic heart failure #COPD exacerbation #GERD #Small pericardial effusion #Possible hypertrophic cardiomyopathy #Hx of Sjogrens syndrome - I dont believe patient has pericarditis based on my interview. Patient may be having acid reflux. I will stop ibuprofen and colchicine and start her on a GI cocktail to see response - Await sputum gm stain culture - Continue prednisone 40 daily to complete 5 days - Positive for human metapneumovirus - Continue levaquin 750 x 7 days total for empiric coverage - Continue duoneb q4H SCHD - Echo showed 1 cm small pericardial effusion without hemodynamic compromise - Will refer her to cardiology as outpatient at discharge. - lasix 40 iv x1 today to see response. not on lasix at home - BNP 5000 range. - DIscussed with cardiology over phone as curbside. Recommended diuresis and outpatient follow up. - Patient recently had flu, covid 1 month ago and was still recovering from that - Echo shows normal EF with diastolic dysfunction - Will check home oxygen evaluation at mo - Continue protonix 40 daily for 2 weeks. - Will need to follow up with PCP. Full Code DVT PPX: heparin subq BID. Attestations Medical Necessity Statement*: Continue patient stay in hospital today for IV diuresis. Diagnoses Pneumonia due to human metapneumovirus (hMPV) J12.3 Effusion, pericardium I31.39 Hypoxemia R09.02 Acute exacerbation of chronic obstructive airways disease J44.1 COPD (chronic obstructive pulmonary disease) J44.9
[2022-08-13] VITALS (7 sets, daily range): BP systolic 138–198; BP diastolic 62–98; PULSE 71–98; RESP 14–18; TEMP 36.4–36.7; O2SAT 88–98
[2022-08-13 04:41] LABS: Anion Gap 11.1 (5-19); Blood Urea Nitrogen 21 mg/dL (8-23); Calcium 8.2 mg/dL (8.5-10.5); Carbon Dioxide 26 mmol/L (22-29); Chloride 101 mmol/L (98-107); Creatinine Clr Calc Pharmacy 48.4308; Glucose 127 mg/dL (65-115); Osmolality Calculated 283 mOsm/kg (285-295); Potassium 4.1 mmol/L (3.5-5.1); Sodium 134 mmol/L (136-145)
[2022-08-13] MEDS: acetaminophen 325 mg Tablet 650 MG PO (05:27)
--- NOTE | 2022-08-13 05:45 | PC.NURSE ---
PARACHUTIST/COMBATANT DIVER QUALIFIED informed nurse that patient's BP was elevated. Manual blood pressures on patient's right arm were 198/98 and 192/92. Manual blood pressure on left arm was 184/82. Dr Valle was notified and no new orders were received at this time.
[2022-08-13] MEDS: levoFLOXacin 750 mg Tablet PO (06:12)
[2022-08-13] MEDS: sucralfate 1 gm Tablet PO ×2 (06:12→12:26)
[2022-08-13] MEDS: ipratropium-albuterol 3 mL Neb INHALATION ×2 (08:52→12:08)
--- NOTE | 2022-08-13 09:14 | P.DS_ITS ---
Discharge Providers Date of Admission: 08/10/22 18:21 Date of Discharge: August 13, 2022 Attending Provider at Admission: Merly Ford MD Attending Provider at Discharge: Merly Ford MD Primary Care Provider: Nya Valle MD Diagnoses at Discharge Discharge Diagnosis (1) Pneumonia due to human metapneumovirus (hMPV): Status: Acute (2) Effusion, pericardium: Status: Acute (3) Hypoxemia: Status: Acute (4) Acute exacerbation of chronic obstructive airways disease: Status: Acute (5) COPD (chronic obstructive pulmonary disease): Status: Acute Reason for Visit Reason for Visit: abnormal labs Brief History: As per . Dimas Parr is a 77 year old female who does not have significant past medical history other than yogurt syndrome and COPD presenting for chief complaint of febrile episodes and shortness of breath.? Patient is stating that her symptoms of shortness of breath started roughly 2 days ago and then she started experiencing fever today at Dr. Nya Valle's clinic her fever was 103 and she was asked to go to the hospital for further evaluation.? Patient has not expressed any nausea, vomiting, chest pain however she has been experiencing shortness of breath on exertion in particular for last 2 to 3 days.? Patient is stating that before that beginning of symptoms she was also experiencing shortness of breath when she was vacuuming and it was limiting her daily activities.? She has not a very healthy and active lifestyle.? 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 No one is sick with COVID-19 at home, in the ER she has been diagnosed with pericardial effusion stat echo has been requested she is hemodynamically stable heart sounds are not distant no significant signs of pulses paradoxus Echo report is pending Patient is awake and alert Hospital Course Hospital Course Admitted for shortness of breath with fever with suspicion of pneumonia. Sent in from her primary care office clinic. Found to have a small pleural effusion diastolic heart failure. GERD exacerbation. She was given GI cocktail. Positive for human metapneumovirus. Received prednisone 40 x 3 days. Was diuresed with Lasix 40 IV with good response. Back down to room air. On admission requiring 2 L oxygen. BNP level 5000 range. Not on any diuretics at home. I got her started on Lasix 20 daily along with 8 of potassium. Discussed briefly with cardiology over the phone. Patient to follow-up with cardiology within 2 weeks of discharge. Home oxygen evaluation done at discharge Echo findings of hypertrophic cardiomyopathy along with small pleural effusion were discussed with the patient as well as cardiology. They will follow-up with her as an outpatient. I did give her Levaquin for 5 more days to complete a course of 7 days total. Will be sent home in stable condition at this time. I also gave her labs to do BMP in 3 days in a week to keep an eye on the potassium and kidney function now that Marlyn is on board. Physical Exam Narrative: General: Alert oriented x3, patient seen sitting up in bed, appearing slightly anxious HEENT: Normocephalic, atraumatic, EOMI, breathing 2L NC Cardio: Regular rate rhythm, normal S1-S2, no murmurs Respiratory: clear to ausculation b/l, no wheezes no rhonchi appreciated, slightly diminished overall GI: Abdomen soft, nontender, nondistended, bowel sounds + Behavior: Appropriate and cooperative Extremities: no edema Discharge Data Studies Completed and Pending Completed Studies During Hospitalization Category Date Time Status CTA chest [CT angio chest PE protcl [id number]] Stat Cat Scan 08/10/22 13:36 Completed XR chest 1V portable [id number] Stat Exams 08/10/22 11:57 Completed CV. echo complete* [id number] Stat Ultrasound 08/10/22 16:17 Completed Pending at discharge Category Date Time Status Bacterial Antigen Stat Lab 08/10/22 17:01 Uncollected Blood Culture Stat Lab 08/10/22 11:40 Results Legionella Antigen STAT Stat Lab 08/10/22 17:01 Uncollected Sputum Culture and Gram Stain Stat Lab 08/12/22 08:40 Results Radiology Impressions Chest X-Ray 08/10/22 11:57 Impression: Atherosclerosis and hyperinflation. Laboratory Results WBC 7.1 10^3/uL (4.0-10.0) 08/12/22 03:30 RBC 4.16 10^6/uL (4.1-5.3) 08/12/22 03:30 Hgb 10.9 g/dL (11.5-15.3) L 08/12/22 03:30 Hct 35.3 % (37.0-47.0) L 08/12/22 03:30 MCV 84.9 fl (81-99) 08/12/22 03:30 MCH 26.2 pg (28.0-34.0) L 08/12/22 03:30 MCHC 30.9 g/dL (30.0-36.0) 08/12/22 03:30 RDW 15.8 % (12.1-15.1) H 08/12/22 03:30 Plt Count 172 10^3/cmm (130-400) 08/12/22 03:30 MPV 13.2 fL (7.4-10.4) H 08/12/22 03:30 Neut % (Auto) 86.9 % 08/12/22 03:30 Lymph % (Auto) 7.9 % 08/12/22 03:30 Morehouse % (Auto) 5.1 % 08/12/22 03:30 Eos % (Auto) 0.0 % 08/12/22 03:30 Baso % (Auto) 0.0 % 08/12/22 03:30 Neut # (Auto) 6.17 10^3/uL (1.8-7.7) 08/12/22 03:30 Lymph # (Auto) 0.6 10^3/uL (0.8-4.8) L 08/12/22 03:30 Morehouse # (Auto) 0.4 10^3/uL (0.2-0.9) 08/12/22 03:30 Eos # (Auto) 0.0 10^3/uL (0.0-0.8) 08/12/22 03:30 Baso # (Auto) 0.0 10^3/uL (0.0-0.1) 08/12/22 03:30 Nucleated RBC % (auto) 0 % 08/12/22 03:30 Nucleated RBCs # 0.0 /100WBC 08/12/22 03:30 ESR 6 mm/hr (0-15) 08/10/22 19:35 D-Dimer 0.99 ug/mIFEU (0-0.59) H 08/10/22 11:40 Specimen Type Arterial 08/10/22 12:35 Sample Site Brachial, right 08/10/22 12:35 ABG pH 7.46 (7.35-7.45) H 08/10/22 12:35 ABG pCO2 33.6 mmHg (35-45) L 08/10/22 12:35 ABG pO2 89.6 mmHg (80.0-100.0) 08/10/22 12:35 ABG HCO3 24.0 mmol/L (22-26) 08/10/22 12:35 ABG Base Excess 0.6 mmol/L (-2.0-2.0) 08/10/22 12:35 Jose Miguel Test Pos 08/10/22 12:35 Hematocrit 36.4 % (37-47) L 08/10/22 12:35 O2 Delivery Device Nc 08/10/22 12:35 O2 Liters/Min 2.0 % 08/10/22 12:35 FiO2 28.0 % 08/10/22 12:35 Panel Lay Up Worker ID Monro 08/10/22 12:35 Sodium 134 mmol/L (136-145) L 08/13/22 03:00 Potassium 4.1 mmol/L (3.5-5.1) 08/13/22 03:00 Chloride 101 mmol/L (98-107) 08/13/22 03:00 Carbon Dioxide 26 mmol/L (22-29) 08/13/22 03:00 Anion Gap 11.1 (5-19) 08/13/22 03:00 BUN 21 mg/dL (8-23) 08/13/22 03:00 Creatinine 0.6 mg/dL (0.5-0.9) 08/13/22 03:00 GFR Calculation Not Reportable 08/13/22 03:00 Glucose 127 mg/dL (65-115) H 08/13/22 03:00 Calculated Osmolality 283 mOsm/kg (285-295) L 08/13/22 03:00 Lactic Acid 1.2 mmol/L (0.5-2.2) 08/10/22 12:11 Calcium 8.2 mg/dL (8.5-10.5) L 08/13/22 03:00 Magnesium 2.1 mg/dL (1.7-2.3) 08/11/22 04:54 Total Bilirubin 0.5 mg/dL (0.15-1.2) 08/10/22 12:11 AST 22 U/L (0-32) 08/10/22 12:11 ALT 15 U/L (0-33) 08/10/22 12:11 Alkaline Phosphatase 135 U/L (35-105) H 08/10/22 12:11 Lactate Dehydrogenase 212 U/L (135-214) 08/10/22 19:35 Troponin T Baseline 20 ng/L (0-10) H 08/10/22 12:11 Troponin T 120 Minute 18.25 ng/L (0-10) H 08/10/22 14:37 Delta Troponin T -1.75 ABS# (0-10) L 08/10/22 14:37 Troponin T Hi Sens 6Hr 18.65 ng/L (0-10) H 08/10/22 18:19 Troponin T Hi Sens 6Hr Delta -1.35 ng/L (0-12) L 08/10/22 18:19 C-Reactive Protein 32.5 mg/L (0.0-4.9) H 08/10/22 19:35 NT-Pro-B Natriuret Pep 5510 pg/mL (0-450) H 08/10/22 19:35 Total Protein 7.3 g/dL (6.6-8.7) 08/10/22 12:11 Albumin 4.1 g/dL (3.5-5.2) 08/10/22 12:11 Globulin 3.2 g/dL (1.3-4.6) 08/10/22 12:11 Procalcitonin 0.07 ng/mL (0-0.5) 08/10/22 19:35 TSH 1.58 uIU/mL (0.27-4.20) 08/10/22 12:11 TSH 1.63 uIU/mL (0.27-4.20) 08/10/22 12:11 Coronavirus 229E (PCR) Not detected (NOT DETECT) 08/10/22 12:30 Human Metapneumovir PCR Detected (NOT DETECT) A 08/10/22 14:35 Entero/Rhino (PCR) Not detected (NOT DETECT) 08/10/22 14:35 SARS-CoV-2 (PCR) Not detected (NOT DETECT) 08/10/22 12:30 Vitals Last Vital Signs Temp 97.6 F 08/13/22 08:00 Pulse 71 08/13/22 08:00 Resp 15 08/13/22 08:00 BP 192/95 08/13/22 08:00 Pulse Ox 96 08/13/22 08:00 O2 Del Method 08/13/22 08:00 O2 Flow Rate 2 08/12/22 19:57 Discharge Plan Discharge Patient Disposition: Home Condition: Stable Prescriptions: New sucralfate 1 gram Tablet 1 g PO AC&BEDTIME 7 Days Qty: 14 0RF levofloxacin 750 mg Tablet 750 mg PO DAILY@0600 5 Days Qty: 5 0RF Lasix 20 mg tablet 20 mg PO DAILY 30 Days Qty: 30 0RF potassium chloride 8 mEq capsule, extended release 8 meq PO DAILY 30 Days Qty: 30 0RF Continued fluticasone propion-salmeterol [Advair Diskus] 500-50 mcg/dose blister with device 1 inh inhalation BID 30 Days Qty: 60 2RF albuterol sulfate [Ventolin HFA] 90 mcg/actuation HFA aerosol inhaler 2 puff INHALATION Q4H PRN (Reason: Shortness Of Breath Or Wheezing) 30 Days Qty: 1 2RF Spiriva with HandiHaler 18 mcg capsule, w/inhalation device 18 mcg INHALATION DAILY 30 Days Qty: 1 2RF Changed pantoprazole 40 mg tablet,delayed release (DR/EC) 40 mg PO BIDWMEAL PRN (Reason: Acid Reflux) 30 Days Qty: 60 0RF Discharge Orders: Discharge Order (Routine); Ordered 08/13/22 Ordered By: Merly Ford Other Ambulatory Orders: Basic Metabolic Panel (Routine) Timeframe: 1 Week Facility: [facility] - Location: Lab - Main Lab Ordered By: Merly Ford Basic Metabolic Panel (Routine) Timeframe: 3 Days Facility: [facility] - Location: Lab - Main Lab Ordered By: Merly Ford CV. echo limited [id number] (Routine) Timeframe: 2 Weeks Location: [facility] Ordered By: Merly Ford DME: Oxygen (Order) Location: None Selected Ordered By: Merly Ford Referrals: Nya Valle MD [Primary Care Provider] - 4-7 days (Please call Dr. Valle's office Sunday morning to schedule a hospital follow up appointment within 1 week. ) Rula Roberts MD [Physician] - 7-10 days (Please call Dr. Roberts's office Sunday morning to make a follow up appointment within 1 week. Thank you!) Discharge Diet: Cardiac and Low Salt Discharge Activity: Resume usual activity Patient Instructions: Furosemide (By mouth), Sucralfate (By mouth), Potassium Chloride (By mouth), Levofloxacin (By mouth), Using Oxygen at Home (GEN), Pneumonia (GEN), Opioid Safety Activity Restrictions/Additional Instructions: Please check your weight daily. If you gain > 3 lbs in 48 hours or > 5 lbs in 3 days, please call your primary care doctor. You will need follow up with cardiology at discharge as well. I have started you on a very low dose water pill called lasix. Take that daily. Please have labs repeated as directed and follow up with primary care doctor and cardiology as soon as possible. Discharge Attestations Time Spent in Discharge Care*: greater than 30 min Quality Metrics Clinical Quality Measures [ No reported AMI, CVA or VTE this stay] Coding Level of Care Code Acute Code for Chg Fwd Diagnoses Pneumonia due to human metapneumovirus (hMPV) J12.3 Effusion, pericardium I31.39 Hypoxemia R09.02 Acute exacerbation of chronic obstructive airways disease J44.1 COPD (chronic obstructive pulmonary disease) J44.9
[2022-08-13] MEDS: heparin 5,000 unit/mL INJ 1 mL 5000 UNIT SUBCUT (09:36)
[2022-08-13] MEDS: predniSONE 20 mg Tablet 40 MG PO (09:37)
[2022-08-13] MEDS: pantoprazole 40 mg SDV IVP (09:37)
--- NOTE | 2022-08-13 12:32 | PC.SOCIAL ---
IMM update pg 2 of IMM updated and reviewed w/ patient. Copy provided and Copy dated, initialed and placed in chart.
--- NOTE | 2022-08-13 15:00 | PC.NURSE ---
1440 IV dc'd 1450 discharge instructions given to patient and both voiced understanding. 1500 Patient discharged to home with home 02 with family. patient in stable condition. Taken to private car per wheelchair.
== END 2022-08-13 15:10 | disposition home or self-care (01) | DRG 193 ==
LOC: ER 16:16 → MEDSURG 18:22
PROVIDERS: Internal Medicine; Admitting Provider Internal Medicine; Emergency Provider Emergency Medicine; PCP Family Medicine; Visit Provider Internal Medicine
DX: J12.3 Human metapneumovirus pneumonia (principal); I50.31 Acute diastolic (congestive) heart failure; J44.0 Chronic obstructive pulmonary disease with (acute) lower respiratory infection; J44.1 Chronic obstructive pulmonary disease with (acute) exacerbation; I31.39 Other pericardial effusion (noninflammatory); Q60.4 Renal hypoplasia, bilateral; I42.2 Other hypertrophic cardiomyopathy; Z79.51 Long term (current) use of inhaled steroids; K21.9 Gastro-esophageal reflux disease without esophagitis; Q63.1 Lobulated, fused and horseshoe kidney; M35.00 Sjogren syndrome, unspecified; F17.210 Nicotine dependence, cigarettes, uncomplicated
CPT/HCPCS: 36415; 36600; 71045; 71275; 80048; 80053; 82803; 83605; 83615; 83735; 83880; 84145; 84443; 84484; 85025; 85378; 85651; 86140; 87040; 87070; 87205; 87635; 87641; 87801; 93005; 93306; 94640; 94760; 96372; 96374; 99285; C9113; J1644; J1940; J2930; J7030; J7512; Q9967

== ENCOUNTER → 2022-10-09 14:03 | Outpatient (BNVA) | payer MEDICARE, OTHER, SELFPAY | PROVIDERS: PCP Family Medicine; Visit Provider Internal Medicine Cardiovascular Disease | DX: I50.30 Unspecified diastolic (congestive) heart failure (principal); I31.39 Other pericardial effusion (noninflammatory); I42.1 Obstructive hypertrophic cardiomyopathy; J44.9 Chronic obstructive pulmonary disease, unspecified; F17.200 Nicotine dependence, unspecified, uncomplicated; R06.02 Shortness of breath; R00.2 Palpitations | CPT/HCPCS: 36415; 80048; 83880; 93005; 99205 ==

== ENCOUNTER 2022-11-09 08:21 | Outpatient (CLI) | payer MEDICARE, OTHER, SELFPAY ==
[2022-11-09 09:24] VITALS: BMI 18.6
--- NOTE | 2022-11-09 09:25 | ECG_ITS ---
[facility] Test Date: 2022-11-09 Pat Name: Jannet Parr Department: Room: Gender: Female Supervisor Heavy Equipment: Lexis May : 1945 Requested By: Rula Roberts Order Number: [id number] Abdon MD: Rula Roberts M.D. Interpretive Statements NAME OF STUDY: LEXISCAN SESTAMIBI STRESS TEST INDICATION: Chest Pain, PROCEDURE: At the baseline, the EKG revealed normal sinus rhythm with a poor R wave progression. Possible old septal [place].. The baseline heart was 174/79 bpm with a blood pressue of 79 mm of Hg Lexiscan was infused over a period of 20 seconds. A total of 0.4 milligrams of Lexiscan was infused. The stress phase was continued for a total of 5 minutes. Heart rate at the end of the stress phase was 103 bpm with a blood pressure 123/48 mm of Hg. The EKG at the peak infusion revealed [address] depression in lead V5 and V6. Sestamibi was injected 20 seconds after the Lexiscan infusion. Heart rate at the end of the recovery phase was 92 bpm with a blood pressure of 123/56 mm of Hg. patient continues to have some persistent ST-T changes, 5 minutes into the recovery CONCLUSION: 1. EKG changes with the Lexiscan infusion, suggestive of anterolateral ischemia 2. No LexiScan induced chest pain or cardiac arrhythmia 3. Normal blood pressure and heart rate response 4. Sestamibi/sestamibi perfusion scan pending; see separate report. Electronically Signed On 11-10-2022 20:21:08 CDT by Rula Roberts M.D. [email or web address]
--- NOTE | 2022-11-09 09:25 | NMCV_ITS ---
NM thompson perf SPECT r/s* [id number] Jannet Parr Age: 77 Gender: F : 1945 Exam Date: 11/09/2022 09:52 Ordering Phys: Rula Roberts MD ([email or web address]) Technologist: WILL Epstein Exam Location: [facility] Indications: CORONARY ANGIOPLASTY STATUS, CONGESTIVE HEART FAILURE STRESS TEST [facility] IMAGE PROTOCOL Rest/Stress 1 Lexiscan Day Radiopharmaceutical Dose (mCi) Administration Site Administered by Rest: Tc-99m 10.7 IV WILL Allen Sestamibi Stress:Tc-99m 32.7 IV WILL Allen Sestamibi Rest: 09-Nov-2022 60 Discovery 630 Stress: 09-Nov-2022 30 Discovery 630 0.4mg Lexiscan. Supine position only as patient was unable to lay prone. SPECT RESULTS Technical Quality: Excellent Raw Data Analysis: Normal Image Corrections: No attenuation or motion correction applied Summed Stress Score: 0 Summed Rest Score: 0 Summed Difference Score: 0 PERFUSION FINDINGS Fairly uniform myocardial tracer uptake. No significant perfusion normalities. FUNCTIONAL RESULTS (calculated via Gated SPECT) Stress Image LV EF (%): 71 Stress EDV (mL):65 TID: 1.1 Stress ESV (mL):19 FUNCTIONAL FINDINGS: Segmental wall motion analysis revealing no gross wall motion abnormalities IMPRESSIONS 1. Unremarkable Myocardial perfusion imaging. 2. Normal LV ejection fraction 71%. 3. LV wall motion analysis revealing no gross wall motion abnormalities. 4. Normal LV volume Low probability for coronary ischemia, based on the above findings Dr Rula Roberts MD FACC (Electronically Signed) Final Date: 10 Nov 2022 10:25 S
[2022-11-09] MEDS: regadenoson 0.4 Mg/5 ml Syringe IVP (10:19)
[2022-11-09] MEDS: aminophylline 25 mg/mL SDV 10 mL IVP (10:37)
[2022-11-09 11:05] VITALS: BP 123/56; PULSE 74
== END 2022-11-09 08:22 | disposition home or self-care (01) ==
LOC: CDL 08:22
PROVIDERS: PCP Family Medicine; Visit Provider Internal Medicine Cardiovascular Disease
DX: R07.9 Chest pain, unspecified (principal)
CPT/HCPCS: 36415; 78452; 93017; 96374; 96375; A9500; J0280; J2785

== ENCOUNTER → 2023-01-29 13:16 | Outpatient (BNVA) | payer MEDICARE, OTHER, SELFPAY | PROVIDERS: PCP Family Medicine; Visit Provider Nurse Practitioner Family | DX: I50.30 Unspecified diastolic (congestive) heart failure (principal); I42.1 Obstructive hypertrophic cardiomyopathy | CPT/HCPCS: 99213 ==

== ENCOUNTER → 2023-08-07 10:22 | Outpatient (BNVA) | payer MEDICARE, OTHER, SELFPAY | PROVIDERS: PCP Family Medicine; Visit Provider Nurse Practitioner Family | DX: I50.32 Chronic diastolic (congestive) heart failure (principal) | CPT/HCPCS: 99213 ==

== ENCOUNTER → 2023-10-15 13:59 | Outpatient (BNVA) | payer MEDICARE, OTHER, SELFPAY | PROVIDERS: PCP Family Medicine; Referring Provider Nurse Practitioner Family; Visit Provider Surgery | DX: K21.9 Gastro-esophageal reflux disease without esophagitis (principal); R10.13 Epigastric pain; K80.20 Calculus of gallbladder without cholecystitis without obstruction | CPT/HCPCS: 99204 ==

== ENCOUNTER 2023-11-07 09:54 | Day surgery (SDC) | payer MEDICARE, OTHER, SELFPAY ==
[2023-11-07 10:10] VITALS: BP 137/78; PULSE 88; RESP 16; TEMP 36.6; O2SAT 95; BMI 17.3
[2023-11-07] MEDS: sodium chloride 0.9% 1,000 ML 30 ML IV (10:20)
--- NOTE | 2023-11-07 11:37 | ANES.PREANE2 ---
Pre-Anesthetic Assessment Height/Weight: Height 1.6 m Weight 44.452 kg Temp Pulse Resp BP Pulse Ox O2 Del Method 97.9 F 88 16 137/78 95 Room Air 11/07/23 10:10 11/07/23 10:10 11/07/23 10:10 11/07/23 10:10 11/07/23 10:10 11/07/23 10:10 Preop Diagnosis: GERD Operation Date: 11/07/23 11:15 Proposed Procedures p EGD 41453, R10.13, K21.9, K80.20(Not Applicable) - Travis Amaro DO Familial anesthetic complications: None Was Beta Lloyd taken within 24 hours: N/A Was Clonidine taken within 24 hours: N/A Last intake: Intake Last Liquid Date 11/06/23 Last Liquid Time 23:45 Last Solid Date 11/06/23 Last Solid Time 19:00 Social No alcohol and No tobacco Exam alert, oriented x 3, clear to auscultation bilaterally and regular rate & rhythm Airway Submandibular: within normal limits Cervical ROM: Other (Decreased ROM) Mallampati: Class II Dentition: full History/ROS No significant history except as noted and No significant complaints Pulmonary Chronic Obstructive Pulmonary Disease and Exertional Dyspnea CV/HEM Coronary Artery Disease and Murmur CONCLUSION: 1. EKG changes with the Lexiscan infusion, suggestive of anterolateral ischemia 2. No LexiScan induced chest pain or cardiac arrhythmia 3. Normal blood pressure and heart rate response 4. Sestamibi/sestamibi perfusion scan pending; see separate report. CONCLUSIONS 1. Normal left ventricular cavity size and systolic function. Increased left ventricular thickness. (LVISd-1.7 cm, PWDd-1.3 cm). Asymmetric left ventricular hypertrophy. Left ventricular ejection fraction is estimated at 70-75 %. Grade I diastolic dysfunction (abnormal relaxation filling pattern), normal to mildly elevated filling pressures. 2. Resting left ventricular outflow tract gradient of (4.7 m/s) 88 mm Hg and LVOT gradient with valsalva of (5.9 m/s) 139 mm Hg. 3. Mild mitral valve regurgitation. Systolic anterior movement of anterior mitral leaflet. 4. Small pericardial effusion along right ventricular free wall. No evidence of hemodynamic compromise. 5. These findings are suggestive of hypertrophic cardiomyopathy. Clinical correlation is advised. Horseshoe kidneys, kidney stones Hepatic None reported GI Gastroesophageal Reflux Disease (None this morning) Metabolic None reported Musc/skel Lower Back Pain and Osteoarthritis/DJD Neuropsych Depression Anesthetic Plan ASA status: 3 Anesthesia: General and MAC Risk of > 500 ml blood loss (7ml/kg in children): No Medications/Allergies Home Medications Medication Instructions Recorded Confirmed Last Taken Type albuterol sulfate 90 mcg/actuation 2 puff inhalation Q4H PRN 06/21/22 11/07/23 11/07/23 Rx aerosol inhaler (Ventolin HFA) Shortness Of Breath Or Wheezing 30 days #1 g fluticasone 500 mcg-salmeterol 50 1 inh inhalation BID 30 days #60 ea 06/21/22 11/07/23 11/07/23 Rx mcg/dose blistr powdr for inhalation (Advair Diskus) tiotropium bromide 18 mcg capsule 18 mcg inhalation DAILY 30 days #1 06/21/22 11/07/23 11/07/23 Rx with inhalation device (Spiriva Can with HandiHaler) pantoprazole 40 mg tablet,delayed 40 mg PO BIDWMEAL PRN Acid Reflux 08/13/22 11/07/23 11/06/23 Rx release 30 days #60 tabs calcium carbonate 250 mg-vitamin 1 tab PO DAILY 10/09/22 11/07/23 3 Weeks Ago History D3 3.125 mcg (125 unit) tablet ~10/16/23 (Oyster Shell Calcium-Vitamin D3) Allergies Allergy/AdvReac Type Severity Reaction Status Date / Time No Known Allergies Allergy Verified 11/07/23 10:06 Current Medications Generic Name Dose Route Start Last Admin Trade Name Freq PRN Reason Stop Dose Admin Sodium Chloride 1,000 mls @ 30 mls/hr 11/07/23 10:00 11/07/23 10:20 Sodium Chloride 0.9% IV 11/08/23 09:59 30 mls/hr .Q24H JOSIAS Administration PFSH Anesthesia Medical History (Updated 10/15/23 @ 15:37 by Travis Amaro DO) GERD (gastroesophageal reflux disease) Sjogrens syndrome COPD (chronic obstructive pulmonary disease) Surgical History History of tubal ligation No significant past surgical history Family History Father Colon cancer Mother Tumor left ovary Sister Breast cancer Brother Cancer pancreas Grandmother Cancer bladder Social History Smoking and tobacco/nicotine status: former use of tobacco/nicotine Alcohol intake: never Data Anesthesia Cardiac Studies: Echocardiogram 08/10/22 Sestamibi Stress Test (Cardiology) 11/09/22
--- NOTE | 2023-11-07 12:01 | W.PM.OPSUD ---
Surgery/Procedure H&P Update DATE OF PROCEDURE: November 07, 2023 DATE H&P PERFORMED: 10/15/23 H&P UPDATE INFORMATION: I have reviewed H&P completed within last 30 days, I have examined patient prior to procedure and No changes to prior documentation PREOP DIAGNOSIS: GERD PLANNED PROCEDURE: Operation Date: 11/07/23 11:15 Proposed Procedures p EGD 01016, R10.13, K21.9, K80.20(Not Applicable) - Travis Amaro DO
[2023-11-07 12:12] VITALS: BP 127/64; PULSE 86; RESP 14; TEMP 36.6; O2SAT 94
[2023-11-07 12:22] VITALS: BP 107/60; PULSE 80; RESP 16; O2SAT 94
--- NOTE | 2023-11-07 14:41 | ANE.PACU2 ---
Inpatient post-anesthesia follow up: Airway intact: Yes Vital signs: Temperature 98 F Pulse Rate 80 Respiratory Rate 16 Blood Pressure 107/60 Pulse Oximetry 94 Oxygen Delivery Me thod Room Air Oxygen Flow Rate Fraction of Inspir ed Oxygen Hydration adequate: Yes Nausea and vomiting: No Pain level: 2 Mental status: Baseline
== END 2023-11-07 12:45 | disposition home or self-care (01) ==
PROVIDERS: PCP Family Medicine; Visit Provider Surgery
PROC: 0DJ08ZZ Inspection of Upper Intestinal Tract, Via Natural or Artificial Opening Endoscopic (ICD-10-PCS; CPT 43235; principal; 2023-11-07 11:15)
DX: K21.9 Gastro-esophageal reflux disease without esophagitis (principal); K29.50 Unspecified chronic gastritis without bleeding
CPT/HCPCS: 43239; 88305; J2704; J7030

== ENCOUNTER → 2023-11-26 13:57 | Outpatient (BNVA) | payer MEDICARE, OTHER, SELFPAY | PROVIDERS: PCP Family Medicine; Visit Provider Surgery | DX: Z09 Encounter for follow-up examination after completed treatment for conditions other than malignant neoplasm (principal); K80.20 Calculus of gallbladder without cholecystitis without obstruction | CPT/HCPCS: 99214 ==

== ENCOUNTER 2023-12-11 10:35 | Day surgery (SDC) | payer MEDICARE, OTHER, SELFPAY ==
[2023-12-11] VITALS (13 sets, daily range): BP systolic 134–169; BP diastolic 51–103; PULSE 71–100; RESP 15–20; TEMP 36.2–37.1; O2SAT 90–100; BMI 16.1
--- NOTE | 2023-12-11 11:31 | ECG_ITS ---
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 Measurements Intervals [place] Rate: 94 P: 81 DE: 157 QRS: 12 QRSD: 86 T: 75 QT: 343 QTc: 431 Interpretive Statements SINUS RHYTHM POSSIBLE RIGHT VENTRICULAR CONDUCTION DELAY [RSR (QR) IN V1/V2] NONSPECIFIC T-WAVE ABNORMALITY Compared to ECG 08/10/2022 17:59:38 T-wave abnormality now present Electronically Signed On 12-14-2023 13:49:08 CDT by Jacob Rushing M.D. [id number]
[2023-12-11] MEDS: sodium chloride 0.9% 1,000 ML 30 ML IV (11:59)
--- NOTE | 2023-12-11 12:05 | ANES.PREANE2 ---
Pre-Anesthetic Assessment Height/Weight: Height 1.6 m Weight 41.277 kg O2 Del Method Room Air 12/11/23 11:25 Operation Date: 12/11/23 12:20 Proposed Procedures p Laparoscopic [id number], K80.20(Not Applicable) - Travis Amaro DO Familial anesthetic complications: none Was Beta Lloyd taken within 24 hours: N/A Was Clonidine taken within 24 hours: N/A Last intake: Intake Last Liquid Date 12/10/23 Last Liquid Time 23:30 Last Solid Date 12/10/23 Last Solid Time 20:00 Social No alcohol and No tobacco Exam alert, oriented x 3, clear to auscultation bilaterally and regular rate & rhythm Airway Mallampati: Class III Dentition: full Pulmonary Chronic Obstructive Pulmonary Disease CV/HEM Congestive Heart Failure (HOCM (IHSS)) CONCLUSION: 1. EKG changes with the Lexiscan infusion, suggestive of anterolateral ischemia 2. No LexiScan induced chest pain or cardiac arrhythmia 3. Normal blood pressure and heart rate response 4. Sestamibi/sestamibi perfusion scan pending; see separate report. CONCLUSIONS 1. Normal left ventricular cavity size and systolic function. Increased left ventricular thickness. (LVISd-1.7 cm, PWDd-1.3 cm). Asymmetric left ventricular hypertrophy. Left ventricular ejection fraction is estimated at 70-75 %. Grade I diastolic dysfunction (abnormal relaxation filling pattern), normal to mildly elevated filling pressures. 2. Resting left ventricular outflow tract gradient of (4.7 m/s) 88 mm Hg and LVOT gradient with valsalva of (5.9 m/s) 139 mm Hg. 3. Mild mitral valve regurgitation. Systolic anterior movement of anterior mitral leaflet. 4. Small pericardial effusion along right ventricular free wall. No evidence of hemodynamic compromise. 5. These findings are suggestive of hypertrophic cardiomyopathy. Clinical correlation is advised. GI Gastroesophageal Reflux Disease Anesthetic Plan ASA status: 3 Anesthesia: General Risk of > 500 ml blood loss (7ml/kg in children): No Medications/Allergies Home Medications Medication Instructions Recorded Confirmed Last Taken Type albuterol sulfate 90 mcg/actuation 2 puff inhalation Q4H PRN 06/21/22 12/11/23 12/11/23 07:00 Rx aerosol inhaler (Ventolin HFA) Shortness Of Breath Or Wheezing 30 days #1 g fluticasone 500 mcg-salmeterol 50 1 inh inhalation BID 30 days #60 ea 06/21/22 12/11/23 12/10/23 07:00 Rx mcg/dose blistr powdr for inhalation (Advair Diskus) tiotropium bromide 18 mcg capsule 18 mcg inhalation DAILY 30 days #1 06/21/22 12/11/23 12/11/23 07:00 Rx with inhalation device (Spiriva Can with HandiHaler) pantoprazole 40 mg tablet,delayed 40 mg PO BIDWMEAL PRN Acid Reflux 08/13/22 12/11/23 12/09/23 Rx release 30 days #60 tabs calcium carbonate 250 mg-vitamin 1 tab PO DAILY 10/09/22 11/26/23 3 Weeks Ago History D3 3.125 mcg (125 unit) tablet ~10/16/23 (Oyster Shell Calcium-Vitamin D3) Allergies Allergy/AdvReac Type Severity Reaction Status Date / Time No Known Allergies Allergy Verified 11/26/23 14:10 Current Medications Generic Name Dose Route Start Last Admin Trade Name Freq PRN Reason Stop Dose Admin Sodium Chloride 1,000 mls @ 30 mls/hr 12/11/23 11:00 12/11/23 11:59 Sodium Chloride 0.9% IV 12/12/23 10:59 30 mls/hr .Q24H JOSIAS Administration PFSH Anesthesia Medical History GERD (gastroesophageal reflux disease) Sjogrens syndrome COPD (chronic obstructive pulmonary disease) Surgical History History of tubal ligation No significant past surgical history Family History Father Colon cancer Mother Tumor left ovary Sister Breast cancer Brother Cancer pancreas Grandmother Cancer bladder Social History Smoking and tobacco/nicotine status: former use of tobacco/nicotine Alcohol intake: never Data Anesthesia Cardiac Studies: Echocardiogram 08/10/22 Sestamibi Stress Test (Cardiology) 11/09/22
--- NOTE | 2023-12-11 12:10 | W.PM.OPSUD ---
Surgery/Procedure H&P Update DATE OF PROCEDURE: December 11, 2023 DATE H&P PERFORMED: 11/26/23 H&P UPDATE INFORMATION: I have reviewed H&P completed within last 30 days, I have examined patient prior to procedure and No changes to prior documentation PLANNED PROCEDURE: Operation Date: 12/11/23 12:20 Proposed Procedures p Laparoscopic [id number], K80.20(Not Applicable) - Travis Amaro DO
[2023-12-11] MEDS: ceFAZolin 2,000 MG in sodium chloride 0.9% (plus) 50 ML 100 MG IV (12:39)
[2023-12-11] MEDS: lidocaine-epi 1% 20 mL INJ INJECTION (13:04)
--- NOTE | 2023-12-11 13:31 | P.OP_ITS ---
Operative Report Date of procedure: December 11, 2023 Surgeon: Travis Amaro DO Brief History: This is a very pleasant 78-year-old female who presented to my office symptomatic cholelithiasis. Laparoscopic cholecystectomy is indicated. The risk benefits were explained and documented. Procedure: Preoperative diagnosis: Symptomatic cholelithiasis Postoperative diagnosis: Same Procedure performed: Laparoscopic cholecystectomy Surgeon: Dr. Travis Amaro DO Estimated blood loss: 5 mL Specimens: Gallbladder to pathology Complications: None apparent Description of procedure: Patient was wheeled into the operative room and placed on the OR table in a supine position. Abdomen was inspected prepped and draped in usual sterile fashion. Time-out was performed and all present were in agreement. A 15 blade scalp was used to make a stab incision in the left upper quadrant and intra- abdominal insufflation was achieved using a Veress needle. After localizing the tissue incisions were made and a 5 millimeter trocar was placed into the umbilicus as well as 2 in the right upper quadrant. A 12 millimeter trocar was placed in the epigastrium. Gallbladder was grasped and elevated. The triangle of Calot was carefully dissected using blunt dissection and electrocautery until the triangle of Calot clearly identified. The cystic duct was clipped proximally and double clipped distally. The duct was then ligated proximally. The cystic artery was doubly clipped and ligated. The gallbladder was then removed from the liver bed using electrocautery. The gallbladder was removed from the abdomen using an Endo-Catch bag through the epigastric incision. The liver bed was inspected and no bleeding was seen. The abdomen was irrigated and suctioned. All ports removed. Skin was washed and dried. Incisions were closed with 4-0 Monocryl in a subcuticular interrupted fashion. Skin glue was applied. Patient tolerated the procedure well.
[2023-12-11] MEDS: fentaNYL 50 mcg/mL INJ 2mL IVP (13:49)
[2023-12-11] MEDS: ketorolac 30 mg/mL INJ 15 MG IVP (14:00)
[2023-12-11] MEDS: sodium chloride 0.9% 500 ML 999 ML IV (14:47)
[2023-12-11] MEDS: HYDROmorphone 1 mg/mL INJ 1 mL 0.5 MG IVP (14:47)
--- NOTE | 2023-12-11 15:52 | SUR.PHASEII ---
FAINT WHEEZES AUSCULTATED BILATERALLY. NEBULIZER GIVEN. MODERATED RELIEF OF ABDOMEN PAIN.
[2023-12-11] MEDS: albuterol 2.5 mg/3 mL Neb INHALATION (15:54)
--- NOTE | 2023-12-11 17:00 | ANE.PACU2 ---
Inpatient post-anesthesia follow up: Airway intact: Yes Vital signs: Temperature 98.7 F Pulse Rate 83 Respiratory Rate 18 Blood Pressure 145/80 Pulse Oximetry 90 Oxygen Delivery Me thod Room Air Oxygen Flow Rate 6 Fraction of Inspir ed Oxygen Hydration adequate: Yes Nausea and vomiting: No Pain level: 1 Mental status: Baseline
--- NOTE | 2023-12-11 17:13 | SUR.PHASEII ---
16:45 surgical incisions dry and intact. no redness or drainage.
== END 2023-12-11 17:00 | disposition home or self-care (01) ==
PROVIDERS: PCP Family Medicine; Visit Provider Surgery
PROC: 0FT44ZZ Resection of Gallbladder, Percutaneous Endoscopic Approach (ICD-10-PCS; CPT 47562; principal; 2023-12-11 12:20)
DX: K80.10 Calculus of gallbladder with chronic cholecystitis without obstruction (principal); J44.9 Chronic obstructive pulmonary disease, unspecified; I50.9 Heart failure, unspecified; K21.9 Gastro-esophageal reflux disease without esophagitis; Z87.891 Personal history of nicotine dependence
CPT/HCPCS: 47562; 88304; 93005; J0690; J1100; J1170; J1885; J2405; J2704; J3010; J3490; J7030; J7040; J7613

== ENCOUNTER → 2024-01-03 13:35 | Outpatient (BNVA) | payer MEDICARE, OTHER, SELFPAY | PROVIDERS: PCP Family Medicine; Visit Provider Surgery | DX: Z90.49 Acquired absence of other specified parts of digestive tract (principal); Z98.890 Other specified postprocedural states | CPT/HCPCS: 99024 ==

== ENCOUNTER → 2024-02-05 13:46 | Outpatient (BNVA) | payer MEDICARE, OTHER, SELFPAY | PROVIDERS: PCP Family Medicine; Visit Provider Internal Medicine Cardiovascular Disease | DX: I42.1 Obstructive hypertrophic cardiomyopathy (principal); I50.32 Chronic diastolic (congestive) heart failure; Z87.891 Personal history of nicotine dependence | CPT/HCPCS: 99214 ==

== ENCOUNTER → 2024-09-03 12:30 | Outpatient (BNVA) | payer MEDICARE, OTHER, SELFPAY | PROVIDERS: PCP Family Medicine; Visit Provider Internal Medicine Cardiovascular Disease | DX: I42.1 Obstructive hypertrophic cardiomyopathy (principal); I31.39 Other pericardial effusion (noninflammatory); I34.0 Nonrheumatic mitral (valve) insufficiency; Z87.891 Personal history of nicotine dependence | CPT/HCPCS: 99214 ==

== ENCOUNTER 2024-10-03 11:46 | Outpatient (CLI) | payer MEDICARE, OTHER, SELFPAY ==
--- NOTE | 2024-10-03 12:00 | USCV_ITS ---
Jannet Parr Age: 79 Gender: F : 1945 Exam Date: 10/03/2024 12:20 Ordering Phys: Emiliana Mandel MD ([email or web address]) Technologist: Marquise Shane [place] [facility] [place]: cardiomyopathy BP: 99 / 67 HR: 60 Rhythm: Sinus Technical Quality: Adequate MEASUREMENTS (Male / Female) Normal Values 2D ECHO LV Diastolic Diameter PLAX 3.8 cm 4.2 - 5.9 / 3.9 - 5.3 cm IVS Diastolic Thickness 1.6 cm 0.6 - 1.0 / 0.6 - 0.9 cm IVS Systolic Thickness 1.7 cm LVPW Diastolic Thickness 2.0 cm 0.6 - 1.0 / 0.6 - 0.9 cm LVPW Systolic Thickness 2.5 cm LVOT Diameter 2.0 cm LV Ejection Fraction 2D Teich 88.9 % LV Ejection Fraction MOD 4C 80.5 % LV Ejection Fraction MOD 2C 71.4 % LV Ejection Fraction 2C AL 75.6 % LA Diameter 3.0 cm RA Systolic Volume 4C AL 33.3 ml RA Systolic Volume 4C MOD 33.3 ml LA Sys Volume AL 40.1 cm cubed LA Sys Volume Index AL 29.7 cm cubed/m squared Aorta at Sinotubular Diameter 2.3 cm IVC Diameter 1.6 cm M-MODE LA Ao Ratio MM 1.7 AV Cusp Separation MM 1.5 cm DOPPLER AV Peak Velocity 269.3 cm/s LVOT Peak Velocity 330.0 cm/s AV Area Cont Eq vti 4.5 cm squared AV Area Cont Eq pk 3.9 cm squared MV Peak Velocity 103.0 cm/s MV Area PHT 3.3 cm squared Mitral E to A Ratio 0.8 TR Peak Velocity 300.0 cm/s TR Peak Gradient 36.0 mmHg TR Mean Velocity 251.0 cm/s TR Mean Gradient 26.1 mmHg TR Velocity Time Integral 88.7 cm PV Peak Velocity 104.0 cm/s RV Ejection Time 0.3 s FINDINGS Left Ventricle Normal left ventricular cavity size. Moderate left ventricular hypertrophy. Normal left ventricular systolic function. Left ventricular ejection fraction is estimated at 60 %. Grade I/IV diastolic dysfunction (abnormal relaxation filling pattern), normal to mildly elevated filling pressures. Right Ventricle The right ventricle is normal in size and function. Right Atrium The right atrium is normal in size. Left Atrium Moderately increased left atrial size. Mitral Valve Structurally normal mitral valve without significant stenosis or prolapse. There is no mitral regurgitation. Aortic Valve Moderate aortic valve calcification. No aortic valve stenosis. Mild aortic valve regurgitation. Mild aortic valve stenosis, mean gradient 14.5 mmHg. Tricuspid Valve Structurally normal tricuspid valve without significant stenosis or regurgitation. Pulmonary artery systolic pressure is normal. Pulmonic Valve Trace pulmonary valve regurgitation. Pericardium Normal pericardium without effusion. Aorta Normal ascending aorta dimension. IVC The inferior vena cava appears normal. CONCLUSIONS Normal left ventricular cavity size. Moderate left ventricular hypertrophy. Normal left ventricular systolic function. Left ventricular ejection fraction is estimated at 60 %. Grade I/IV diastolic dysfunction (abnormal relaxation filling pattern), normal to mildly elevated filling pressures. Moderately increased left atrial size. Moderate aortic valve calcification. No aortic valve stenosis. Mild aortic valve regurgitation. Mild aortic valve stenosis, mean gradient 14.5 mmHg. Structurally normal tricuspid valve without significant stenosis or regurgitation. Pulmonary artery systolic pressure is normal. There is no pericardial effusion. Right atrial pressure is around 5 mm of mercury. Emiliana Mandel MD (Electronically Signed) Final Date: 16 October 2024 19:49 S
== END 2024-10-03 11:47 | disposition home or self-care (01) ==
PROVIDERS: PCP Nurse Practitioner Family; Visit Provider Internal Medicine Cardiovascular Disease
DX: I42.9 Cardiomyopathy, unspecified (principal); I51.7 Cardiomegaly; R93.1 Abnormal findings on diagnostic imaging of heart and coronary circulation; I35.8 Other nonrheumatic aortic valve disorders; I35.1 Nonrheumatic aortic (valve) insufficiency
CPT/HCPCS: 93306

== ENCOUNTER 2024-10-05 13:03 | Emergency (ER) | payer MEDICARE, OTHER, SELFPAY ==
--- NOTE | 2024-10-05 13:04 | XRR_ITS ---
PROCEDURE INFORMATION: Exam: XR Left Hip Exam date and time: 10/05/2024 2:00 PM Age: 79 years old Clinical indication: Injury or trauma; Injury details: Lt hip/pelvic pain post fall TECHNIQUE: Imaging protocol: Radiologic exam of the left hip. Views: 2 or 3 views hip with pelvis when performed. COMPARISON: No relevant prior studies available. FINDINGS: Bones/joints: No fracture or joint dislocation involving the left hip joint. Joint space is preserved. No pelvic ring fracture. Levoscoliosis of the lower lumbar spine with degenerative changes. Soft tissues: Unremarkable. XR/XR hip LT 2-3V wo/w pel* [id number] IMPRESSION: 1. No fracture 2. Lumbar spine DJD
[2024-10-05 13:12] VITALS: BP 115/63; PULSE 78; RESP 16; TEMP 36.7; O2SAT 94; BMI 14.7
--- NOTE | 2024-10-05 13:50 | ED_ITS ---
HPI - Fall General: Chief Complaint: Fall Stated Complaint: fall left hip pain Time Seen by Provider: 10/05/24 13:50 Source: patient Mode of arrival: ambulatory Limitations: no limitations History of Present Illness: 79-year-old female states that she had f ell yesterday on a step. States she landed on her left hip she has left hip pain along with pain left side of her pelvis. States pain is very sharp in nature much worse with ambulating and with movement she is able ambulate states it is painful she denies any other injuries denies headache. Associated symptoms-after fall: Denies abdominal pain, chest pain, headache(s) or neck pain Related Data Home Medications ?Medication ?Instructions ?Recorded ?Confirmed calcium 250 mg (as 1 tab PO DAILY 10/09/2209/23 carbonate)-vitamin D3 3.125 mcg (125 unit) tablet (Oyster Shell Calcium-Vitamin D3) fluticasone 500 mcg-salmeterol 50 1 inh inhalation BID 10/05/24 10/05/24 mcg/dose blistr powdr for inhalation tiotropium bromide 18 mcg capsule 1 cap inhalation DARIELA LY 10/05/24 10/05/24 with inhalation device (Spiriva with HandiHaler) Previous Rx's ?Medication ?Instructions ?Recorded albuterol sulfate 90 mcg/actuation 2 puff inhalation Q 4H PRN 06/21/22 aerosol inhaler (Ventolin HFA) Shortness Of Breath Or Wheezing 30 days #1 g pantoprazole 40 mg tablet,delayed 40 mg PO BIDWMEAL FL N Acid Reflux 08/13/22 release 30 days #60 tabs metoprolol succinate 25 mg 12.5 mg (1/2 x 25 mg) PO DA VERENICE #45 02/05/24 tablet,extended release 24 hr tabs hydrocodone 5 mg-acetaminophen 325 1 tab PO Q6H PRN pa in #14 tabs 10/05/24 mg tablet Allergies Allergy/AdvReac Type Severity Reaction Status Date / Time No Known Allergies Allergy Verified 09/03/24 12:55 Review of Systems Const: Denies: fever(s), chills, body aches or change in appetite ENMT: Denies: throat pain or dental pain Card: Denies: chest pain Resp: Denies: dyspnea GI: Denies: abdominal pain, nausea, vomiting or diarrhea Musc: Reports: extremity pain; Denies: neck pain or back pain Skin/Breast: Denies: rash Neuro: Denies: headache(s) PFSH ED PFSH: Medical History HOCM (hypertrophic obstructive cardiomyopathy) GERD (gastroesophageal reflux disease) Sjogrens syndrome COPD (chronic obstructive pulmonary disease) Surgical History Status post laparoscopic cholecystectomy History of tubal ligation No significant past surgical history Family History Father Colon cancer Mother Tumor left ovary Sister Breast cancer Brother Cancer pancreas Grandmother Cancer bladder Social History Smoking and tobacco/nicotine status: former use of tobacco/nicotine Alcohol intake: never Physical Exam Const: COMMON NORMALS: no acute distress, patient oriented x3 and healthy appearing HENMT: COMMON NORMALS: normocephalic and atraumatic HEAD & SCALP: normocephalic and atraumatic Eye: COMMON NORMALS: conjunctivae normal CONJUNCTIVA: Yes conjunctivae normal Neck/C-Spine: COMMON NORMALS: full ROM and supple Chest: COMMONS NORMALS: normal inspection of the chest Resp: COMMON NORMALS: normal respiratory effort Cardio: COMMON NORMALS: regular rate RATE: regular rate GI: COMMON NORMALS: Normal to inspection, nondistended, normoactive bowel sounds present, Soft to palpation, non-tender and no masses PALPATION: Yes Soft to palpation Extremity: COMMON NORMALS: normal to inspection and full ROM NARRATIVE EXTREMITY EXAM: No obvious deformity left hip does have pain with range of motion in her left pelvis and hip Neuro: COMMON NORMALS: patient oriented x3, moves all extremities and no focal motor deficits Psych: COMMON NORMALS: mental status grossly normal, Normal thought process present and cooperative THOUGHT PROCESS: Normal thought process present Skin: COMMON NORMALS: no rashes or lesions noted and no wounds GENERAL SKIN EXAM: no rashes or lesions noted Course Vital Signs: Vital signs: Vital Signs Temperature 98.0 F 10/05/24 13:12 Pulse Rate 78 10/05/24 13:12 Respiratory Rate 18 10/05/24 15:05 Blood Pressure 115/63 10/05/24 13:12 Pulse Oximetry 95 10/05/24 15:05 Oxygen Delivery Me thod Room Air 10/05/24 13:12 MDM - Fall Medical Decision Making Patient presents with hip contusion from a fall imaging here shows no fracture she is able ambulate she is stable for discharge follow-up PCP return if worsening. Medical Records I reviewed the patient's medical records. Lab Data Radiology Impressions Hip/Pelvis X-Ray 10/05/24 13:04 IMPRESSION: 1. No fracture 2. Lumbar spine DJD Hip CT 10/05/24 14:20 IMPRESSION: 1. Diffuse osteopenia without evidence to suggest acute fracture dislocation. 2. Moderate soft tissue swelling involving the posterolateral left hip. All radiology interpretation(s) finalized by discharge Discharge Plan Discharge Patient Disposition: Home Clinical Impression: Contusion of left hip Condition: Stable Prescriptions: New hydrocodone-acetaminophen 5-325 mg tablet 1 tab PO Q6H PRN (Reason: pain) Qty: 14 0RF No Action calcium carbonate-vitamin D3 [Oyster Shell Calcium-Vit D3] 250 mg-3.125 mcg (125 unit) tablet 1 tab PO DAILY metoprolol succinate 25 mg tablet extended release 24 hr 12.5 mg PO DAILY Qty: 45 3RF pantoprazole 40 mg tablet,delayed release (DR/EC) 40 mg PO BIDWMEAL PRN (Reason: Acid Reflux) 30 Days Qty: 60 0RF fluticasone propion-salmeterol 500-50 mcg/dose blister with device 1 inh INHALATION BID tiotropium bromide [Spiriva with HandiHaler] 18 mcg capsule, w/inhalation device 1 cap INHALATION DAILY albuterol sulfate [Ventolin HFA] 90 mcg/actuation HFA aerosol inhaler 2 puff INHALATION Q4H PRN (Reason: Shortness Of Breath Or Wheezing) 30 Days Qty: 1 2RF Discharge Orders: Discharge ED (Routine); Ordered 10/05/24 Ordered By: Samina Ames Referrals: Catalina Richardson NP [Primary Care Provider] - 4-7 days Discharge Diet: Advance as tolerated Discharge Activity: Resume usual activity Patient Instructions: Hip Contusion (ED) Print Language: Kyrgyz Coding Level of Care Code 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
--- NOTE | 2024-10-05 14:20 | CTR_ITS ---
PROCEDURE INFORMATION: Exam: CT Left Lower Extremity Without Contrast, Hip Exam date and time: 10/05/2024 2:46 PM Age: 79 years old Clinical indication: Injury or trauma; Fall; Blunt trauma; Hip; Left TECHNIQUE: Imaging protocol: CT of the left lower extremity without contrast was performed. Exam focused on the hip. Radiation optimization: All CT scans at this facility use at least one of these dose optimization techniques: automated exposure control; mA and/or kV adjustment per patient size (includes targeted exams where dose is matched to clinical indication); or iterative reconstruction. COMPARISON: CR (PELVIS, ) 10/05/2024 2:00 PM RADIATION DOSE METRICS: Total DLP (mGy-cm): 221.51 FINDINGS: Bones/joints: Diffuse osteopenia. Degenerative changes of the left hip. No acute fracture or dislocation. No significant left hip effusion. Soft tissues: Mild soft tissue swelling involving the posterolateral left hip. Vasculature: Atherosclerosis in the left common femoral artery. CT/CT hip LT wo con* [id number] IMPRESSION: 1. Diffuse osteopenia without evidence to suggest acute fracture dislocation. 2. Moderate soft tissue swelling involving the posterolateral left hip.
[2024-10-05 14:25] VITALS: RESP 17; O2SAT 95
[2024-10-05] MEDS: morphine 4 mg/mL SDV 1 mL IM ×2 (14:25→15:05)
[2024-10-05 15:05] VITALS: RESP 18; O2SAT 95
[2024-10-05 15:56] VITALS: BP 160/71; PULSE 81; O2SAT 91
== END 2024-10-05 15:58 | disposition home or self-care (01) ==
PROVIDERS: Emergency Provider Emergency Medicine; PCP Nurse Practitioner Family
DX: S70.02XA Contusion of left hip, initial encounter (principal); Z87.891 Personal history of nicotine dependence; J44.9 Chronic obstructive pulmonary disease, unspecified; W10.9XXA Fall (on) (from) unspecified stairs and steps, initial encounter
CPT/HCPCS: 73502; 73700; 96372; 99284; J2270

== ENCOUNTER 2024-10-20 15:32 | Outpatient (CLI) | payer MEDICARE, OTHER, SELFPAY ==
--- NOTE | 2024-10-20 15:40 | XRR_ITS ---
PROCEDURE INFORMATION: Exam: XR Right Hip Exam date and time: 10/20/2024 3:51 PM Age: 79 years old Clinical indication: Hip pain; Right hip; Additional info: Right hip pain TECHNIQUE: Imaging protocol: Radiologic exam of the right hip. Views: 1 view hip with pelvis when performed. COMPARISON: CR XR lumbar spine min 4V [id number] 10/20/2024 3:51 PM FINDINGS: Bones/joints: No acute fracture or dislocation. [id number]-ob-[id number] degenerative changes with joint space narrowing and subarticular sclerosis. Soft tissues: Unremarkable. XR/XR hip RT 2-3V wo/w pel* [id number] IMPRESSION: 1. No acute osseous findings. 2. Wepr-vu-uadckafh hip osteoarthritis.
--- NOTE | 2024-10-20 15:40 | XRR_ITS ---
PROCEDURE INFORMATION: Exam: XR Lumbosacral Spine Exam date and time: 10/20/2024 3:51 PM Age: 79 years old Clinical indication: Low back pain; Additional info: Lumbar pain TECHNIQUE: Imaging protocol: Radiologic exam of the lumbosacral spine. Views: 4 or 5 views. COMPARISON: CT hip LT wo con* [id number] 10/05/2024 2:46 PM FINDINGS: Bones/joints: Five bbj-[id number]-eugzjsm lumbar vertebrae. Mild levocurvature of the lumbar spine. No acute fracture. Vertebral body heights are maintained. Moderate to advanced degenerative disc disease at L4-L5 and L5-S1 with intervertebral disc space height loss and endplate degenerative changes. Mild degenerative changes at additional levels throughout the lumbar spine. Grade 1 retrolisthesis of L3 on L4 and L4 on L5. Soft tissues: Unremarkable. Organs: Cholecystectomy clips. XR/XR lumbar spine min 4V [id number] IMPRESSION: 1. No acute osseous findings. 2. Mild levocurvature of the lumbar spine with multilevel moderate to advanced lumbar spondylosis. 3. Grade 1 retrolisthesis at L3-L4 and L4-L5.
== END 2024-10-20 15:33 | disposition home or self-care (01) ==
LOC: RAD 15:35
PROVIDERS: PCP Nurse Practitioner Family; Visit Provider Nurse Practitioner Family
DX: R10.2 Pelvic and perineal pain (principal); M16.11 Unilateral primary osteoarthritis, right hip; M43.8X6 Other specified deforming dorsopathies, lumbar region; M47.896 Other spondylosis, lumbar region; M43.16 Spondylolisthesis, lumbar region; M51.369 Other intervertebral disc degeneration, lumbar region without mention of lumbar back pain or lower extremity pain; M51.379 Other intervertebral disc degeneration, lumbosacral region without mention of lumbar back pain or lower extremity pain; Z90.49 Acquired absence of other specified parts of digestive tract
CPT/HCPCS: 72110; 73502